=== PATIENT | male | born 1965 | race American Indian/Alaskan Native ===

== ENCOUNTER 2017-01-07 10:23 | Emergency (ER) | payer MEDICAID, OTHER ==
[2017-01-07 14:46] LABS: Basophils % (Auto) 0.7 % (0.0-1.8); Eosinophils % (Auto) 0.8 % (0.0-4.3); Hematocrit 46.7 % (35.5-45.6); Hemoglobin 14.9 gm/dl (11.8-15.2); Mean Corpuscular HGB Conc 32 % (32-34); Mean Corpuscular Hemoglobin 28 pg (28-32); Mean Corpuscular Volume 87 fl (84-94); Platelet Count 125 K/mm3 (140-440); Red Blood Count 5.37 M/mm3 (3.65-5.03); Red Cell Distribution Width 14.1 % (13.2-15.2); White Blood Count 4.5 K/mm3 (4.5-11.0)
[2017-01-07 15:01] LABS: Anion Gap 16 mmol/L; Blood Urea Nitrogen 9 mg/dL (9-20); Calcium 9.1 mg/dL (8.4-10.2); Carbon Dioxide 26 mmol/L (22-30); Chloride 99.5 mmol/L (98-107); Glucose 81 mg/dL (75-100); Potassium 4.7 mmol/L (3.6-5.0); Sodium 137 mmol/L (137-145)
--- NOTE | 2017-01-07 15:13 | Emergency Department Report ---
ED General Adult HPI - General Chief complaint: Dizziness Stated complaint: DIZZINESS Time Seen by Provider: 01/07/17 15:01 Source: patient, RN notes reviewed Mode of arrival: Ambulatory Limitations: No Limitations - History of Present Illness Initial comments: This is a 51-year-old male. I have evaluated him in the past. Past medical history includes basilar artery stenosis, pontine infarct, pulmonary embolus, hemorrhagic pontine stroke, persistent left-sided deficits. The patient presents to the ER complaining of resolved dizziness. The dizziness is described as a sensation of "swirling." It lasted from approximately 8:00 AM. Patient thinks it lasted for around 10 seconds. He denies headache, neck pain, chest pain, abdominal pain, shortness of breath. He denies new extremity weakness, new extremity numbness. He reports compliance with his medications, with the exception of simvastatin, which he ran out of approximately 2 weeks ago. 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 " Patient reports that he was supposed to follow up with an outpatient neurologist, has not done so secondary to financial issues. There is no change in auditory acuity, there is no tinnitus, no recent cold or viral syndrome. -: Sudden Severity scale (0 -10): 0 Consistency: now resolved Improves with: none Worsens with: none Associated Symptoms: denies: confusion, chest pain, cough, diaphoresis, fever/ chills, loss of appetite, malaise, nausea/vomiting, rash, seizure, shortness of breath, syncope, weakness - Related Data Previous Rx's Medication Instructions Recorded Last Taken Type Aspirin [Aspirin TAB] 325 mg PO QDAY #30 tablet 12/04/16 1 Week Ago Rx Lisinopril [Zestril TAB] 40 mg PO QDAY #30 tablet 12/04/16 1 Week Ago Rx Simvastatin [Zocor TAB] 40 mg PO QHS #30 tablet 12/04/16 1 Week Ago Rx amLODIPine [Norvasc] 10 mg PO DAILY #30 tablet 12/04/16 1 Week Ago Rx Aspirin [Aspirin TAB] 325 mg PO ONCE #30 tablet 01/07/17 Unknown Rx Lisinopril [Zestril TAB] 40 mg PO QDAY 30 Days 01/07/17 Unknown Rx Meclizine [Antivert] 12.5 mg PO BID PRN #10 tablet 01/07/17 Unknown Rx Simvastatin [Zocor TAB] 40 mg PO QHS #30 tablet 01/07/17 Unknown Rx amLODIPine [Norvasc] 10 mg PO DAILY #30 tab 01/07/17 Unknown Rx Allergies Allergy/AdvReac Type Severity Reaction Status Date / Time No Known Allergies Allergy Verified 01/05/16 13:51 ED Review of Systems ROS: Stated complaint: DIZZINESS Other details as noted in HPI Constitutional: denies: fever, malaise Eyes: denies: vision change ENT: other (dizzyness). denies: epistaxis Respiratory: denies: cough Cardiovascular: denies: chest pain Gastrointestinal: denies: abdominal pain, nausea, diarrhea Genitourinary: denies: urgency, dysuria Musculoskeletal: denies: back pain, joint swelling, arthralgia Skin: denies: rash Neurological: as per HPI, vertigo. denies: abnormal gait ED Past Medical Hx - Past Medical History Hx Hypertension: Yes Hx CVA: Yes (L side deficits) Hx Congestive Heart Failure: No Hx Diabetes: No Hx Pulmonary Embolism: Yes Hx Liver Disease: No Hx Renal Disease: No Hx Sickle Cell Disease: No Hx Seizures: No Hx Asthma: No Hx COPD: No Hx Dementia: No Hx HIV: No - Surgical History Additional Surgical History: Peg tube placement - Social History Smoking Status: Never Smoker Substance Use Type: None - Medications Home Medications: Home Medications Medication Instructions Recorded Confirmed Last Taken Type Aspirin [Aspirin TAB] 325 mg PO QDAY #30 tablet 12/04/16 01/07/17 1 Week Ago Rx Lisinopril [Zestril TAB] 40 mg PO QDAY #30 tablet 12/04/16 01/07/17 1 Week Ago Rx Simvastatin [Zocor TAB] 40 mg PO QHS #30 tablet 12/04/16 01/07/17 1 Week Ago Rx amLODIPine [Norvasc] 10 mg PO DAILY #30 tablet 12/04/16 01/07/17 1 Week Ago Rx Aspirin [Aspirin TAB] 325 mg PO ONCE #30 tablet 01/07/17 Unknown Rx Lisinopril [Zestril TAB] 40 mg PO QDAY 30 Days 01/07/17 Unknown Rx Meclizine [Antivert] 12.5 mg PO BID PRN #10 tablet 01/07/17 Unknown Rx Simvastatin [Zocor TAB] 40 mg PO QHS #30 tablet 01/07/17 Unknown Rx amLODIPine [Norvasc] 10 mg PO DAILY #30 tab 01/07/17 Unknown Rx ED Physical Exam - General Limitations: No Limitations General appearance: alert, in no apparent distress - Head Head exam: Present: atraumatic, normocephalic - Eye Eye exam: Present: normal appearance, EOMI. Absent: nystagmus - ENT ENT exam: Present: normal exam, normal orophraynx, mucous membranes moist, normal external ear exam - Neck Neck exam: Present: normal inspection, full ROM. Absent: tenderness, meningismus - Respiratory Respiratory exam: Present: normal lung sounds bilaterally. Absent: respiratory distress, wheezes, rales, rhonchi, stridor, chest wall tenderness - Cardiovascular Cardiovascular Exam: Present: regular rate, normal rhythm, normal heart sounds. Absent: bradycardia, tachycardia, irregular rhythm, systolic murmur, diastolic murmur, rubs, gallop - GI/Abdominal GI/Abdominal exam: Present: soft, normal bowel sounds. Absent: distended, tenderness, guarding, rebound, rigid, pulsatile mass - Rectal Rectal exam: Present: deferred - Extremities Exam Extremities exam: Present: normal inspection, full ROM, normal capillary refill. Absent: tenderness, pedal edema, joint swelling, calf tenderness - Back Exam Back exam: Present: normal inspection, full ROM. Absent: tenderness, CVA tenderness (R), CVA tenderness (L), muscle spasm, paraspinal tenderness, vertebral tenderness - Neurological Exam Neurological exam: Present: alert, oriented X3, normal gait (negative Romberg. Normal [id number]. Negative pass pointing right upper extremity), other ( there is no facial droop. The tongue is midline. Extraocular movements are intact bilaterally. Facial sensation intact to light touch in the bilateral V1 , V2, V3 distribution. There is 4/5 strength left upper extremity. Sensation intact to light touch and pinprick in the upper and lower extremities. Patient reports that left upper extremity findings are chronic.) - Psychiatric Psychiatric exam: Present: normal affect, normal mood - Skin Skin exam: Present: warm, dry, intact, normal color. Absent: rash ED Course Vital Signs 01/07/17 01/07/17 01/07/17 10:32 13:12 15:14 Temperature 98.1 F 97.9 F Pulse Rate 67 61 60 Respiratory 16 18 16 Rate Blood Pressure 143/95 Blood Pressure 116/74 134/84 [Left] O2 Sat by Pulse 100 100 98 Oximetry 01/07/17 01/07/17 17:10 18:57 Temperature 97.9 F Pulse Rate 57 L 75 Respiratory 14 14 Rate Blood Pressure Blood Pressure 141/87 149/77 [Left] O2 Sat by Pulse 100 98 Oximetry - Reevaluation(s) Reevaluation #1: 01/07/17 16:02 differential diagnosis: Peripheral vertigo, transient ischemic attack, posterior circulation deficit, subacute stroke Assessment and plan: 51-year-old male with complex neuroanatomy, known history of stroke, not a TPA candidate given history of hemorrhagic stroke, with nonspecific dizziness. He is walking with a steady gait, his neurologic examination is unremarkable, there is no tinnitus, there is no change in auditory acuity. Patient is noncompliant with his simvastatin, but is taking his aspirin and antihypertensive medications. A noncontrast CT scan of the brain is negative for acute disease. . 01/07/17 18:31 Reevaluation #2: 01/07/17 18:31 case d/w Dr Miramontes, who accepts patient to his service ED Medical Decision Making - Lab Data Result diagrams: 01/07/17 14:25 01/07/17 14:25 Vital Signs 01/07/17 01/07/17 01/07/17 10:32 13:12 15:14 Temperature 98.1 F 97.9 F Pulse Rate 67 61 60 Respiratory 16 18 16 Rate Blood Pressure 143/95 Blood Pressure 116/74 134/84 [Left] O2 Sat by Pulse 100 100 98 Oximetry Lab Results 01/07/17 01/07/17 Range/Units 14:25 14:25 WBC 4.5 (4.5-11.0) K/mm3 RBC 5.37 H (3.65-5.03) M/mm3 Hgb 14.9 (11.8-15.2) gm/dl Hct 46.7 H (35.5-45.6) % MCV 87 (84-94) fl MCH 28 (28-32) pg MCHC 32 (32-34) % RDW 14.1 (13.2-15.2) % Plt Count 125 L (140-440) K/mm3 Lymph % (Auto) 27.4 (13.4-35.0) % [place] % (Auto) 10.5 H (0.0-7.3) % Eos % (Auto) 0.8 (0.0-4.3) % Baso % (Auto) 0.7 (0.0-1.8) % Lymph # 1.2 (1.2-5.4) K/mm3 [place] # 0.5 (0.0-0.8) K/mm3 Eos # 0.0 (0.0-0.4) K/mm3 Baso # 0.0 (0.0-0.1) K/mm3 Seg Neutrophils % 60.6 (40.0-70.0) % Seg Neutrophils # 2.7 (1.8-7.7) K/mm3 Sodium 137 (137-145) mmol/L Potassium 4.7 (3.6-5.0) mmol/L Chloride 99.5 (98-107) mmol/L Carbon Dioxide 26 (22-30) mmol/L Anion Gap 16 mmol/L BUN 9 (9-20) mg/dL Creatinine 1.0 (0.8-1.5) mg/dL Estimated GFR > 60 ml/min BUN/Creatinine Ratio 9.00 % Glucose 81 (75-100) mg/dL Calcium 9.1 (8.4-10.2) mg/dL Troponin T < 0.010 (0.00-0.029) ng/mL - EKG Data 01/07/17 16:04 sinus bradycardia, 59 bpm, QTC 433 ms, not morphologically consistent with STEMI. - Radiology Data Radiology results: report reviewed, image reviewed Noncontrast CT scan is negative for acute findings, multiple chronic findings are noted. Critical care attestation.: If time is entered above; I have spent that time in minutes in the direct care of this critically ill patient, excluding procedure time. ED Disposition Clinical Impression: Dizziness Disposition: OP ADMITTED IP TO THIS HOSP Is pt being admited?: Yes Does the pt Need Aspirin: Yes Condition: Good Instructions: Vertigo (ED) Prescriptions: Simvastatin [Zocor TAB] 40 mg PO QHS #30 tablet amLODIPine [Norvasc] 10 mg PO DAILY #30 tab Aspirin [Aspirin TAB] 325 mg PO ONCE #30 tablet Lisinopril [Zestril TAB] 40 mg PO QDAY 30 Days Meclizine [Antivert] 12.5 mg PO BID PRN #10 tablet PRN Reason: Vertigo Referrals: PRIMARY CARE, [Primary Care Provider] - 3-5 Days
--- NOTE | 2017-01-07 15:55 | Cat Scan Report ---
CT HEAD WITHOUT CONTRAST INDICATION: Resolved dizziness. COMPARISON: 07/24/2016. FINDINGS: Noncontrast head CT again demonstrates normal ventricles and sulci. Slight periventricular hypodensities. No definite acute infarct, hemorrhage, mass effect or midline shift. Stable 1.2 cm high right parietal old ischemic hypodensity, axial series 2, image 45. An elongated, 1.3 x 0.5 cm old infarct in the irma on the left and another similar slightly more inferior approximately 1.1 x 0.5 cm focus on the right again noted, axial images 14-16. Approximately 1 x 0.4 cm old left cerebellar infarct also again seen, axial image 19. Otherwise unremarkable posterior fossa with preserved basilar cisterns. Clear imaged paranasal sinuses and mastoid air cells. Normal calvarium and scalp. Few missing teeth and small radiopaque dental filling. CONCLUSION: No acute intracranial CT abnormality with few stable chronic infarcts noted, as described. Thank you for the opportunity to participate in this patient's care.
--- NOTE | 2017-01-07 17:47 | Event Note ---
Date: 01/07/17 See H/p in reports C/o dizziness Now better Able to walk normally . No ataxia Vertigo d/c on Mexclizine 12.5 mg po q12 prn ASA 81 mg po 2 qd
[2017-01-07] MEDS ORDERED: BABY ASPIRIN PO ONE (18:31)
[2017-01-07 18:57] VITALS: BP 149/77
== END 2017-01-07 18:56 | disposition admitted as inpatient to this hospital (09) ==
LOC: ED 10:23
DX: R42 Dizziness and giddiness (principal); I10 Essential (primary) hypertension; I63.9 Cerebral infarction, unspecified; Z79.82 Long term (current) use of aspirin; Z86.711 Personal history of pulmonary embolism
CPT/HCPCS: 36415; 70450; 80048; 84484; 85025; 93005; 93010

== ENCOUNTER 2017-02-02 11:00 | Emergency (ER) | payer OTHER ==
[2017-02-02] MEDS ORDERED: ZOCOR ONE (14:46)
[2017-02-02] MEDS ORDERED: ANTIVERT ONE (14:46)
[2017-02-02] MEDS ORDERED: NORVASC ONE (14:47)
[2017-02-02] MEDS ORDERED: ZESTRIL ONE (14:48)
[2017-02-02] MEDS ORDERED: ASPIRIN ONE (14:48)
[2017-02-02] MEDS ORDERED: ANTIVERT PO ONE (14:51)
[2017-02-02] MEDS ORDERED: NORVASC PO ONE (14:51)
[2017-02-02] MEDS ORDERED: ZOCOR PO ONE (14:51)
[2017-02-02] MEDS ORDERED: ASPIRIN PO ONE (14:51)
[2017-02-02] MEDS ORDERED: ZESTRIL PO ONE (14:51)
[2017-02-02 15:04] VITALS: BP 152/100
--- NOTE | 2017-02-02 15:07 | Emergency Department Report ---
ED Medical Clearance HPI - General Chief complaint: Medical Clearance Stated complaint: DIZZINESS Source: patient Mode of arrival: Ambulatory - History of Present Illness Initial comments: 51 year old male presents to ED for medication refill. Patient states he was seen in ED and admitted to hospital last month but has lost his prescriptions since his prior hospital visit. patient denies chest pain, sob, dizziness or pain on exam and states he just needs his prescriptions re-printed so that he may fill them today. Patient will be given one dose of all his medications today during ED visit and begin taking RX meds at home tomorrow. patient is stable, neurologically intact and in no acute distress. -: unknown Reason for Medical Clearance: other (med refill) Alledged Intoxication: No Compliant with Home Medications: No (lost prescriptions) Traumatic Symptoms: denies traumatic injury Associated Symptoms: denies other symptoms Treatments Prior to Arrival: none Home medications: Previous Rx's Medication Instructions Recorded Last Taken Type Aspirin [Aspirin TAB] 325 mg PO QDAY #30 tablet 12/04/16 1 Week Ago Rx Lisinopril [Zestril TAB] 40 mg PO QDAY #30 tablet 12/04/16 1 Week Ago Rx Simvastatin [Zocor TAB] 40 mg PO QHS #30 tablet 12/04/16 1 Week Ago Rx amLODIPine [Norvasc] 10 mg PO DAILY #30 tablet 12/04/16 1 Week Ago Rx Aspirin [Aspirin TAB] 325 mg PO ONCE #30 tablet 02/02/17 Unknown Rx Lisinopril [Zestril TAB] 40 mg PO QDAY 30 Days 02/02/17 Unknown Rx Meclizine [Antivert] 12.5 mg PO BID PRN #10 tablet 02/02/17 Unknown Rx Simvastatin [Zocor TAB] 40 mg PO QHS #30 tablet 02/02/17 Unknown Rx amLODIPine [Norvasc] 10 mg PO DAILY #30 tab 02/02/17 Unknown Rx Allergies/Adverse reactions: Allergies Allergy/AdvReac Type Severity Reaction Status Date / Time No Known Allergies Allergy Verified 01/05/16 13:51 ED Review of Systems ROS: Stated complaint: DIZZINESS Other details as noted in HPI Constitutional: denies: chills, fever Eyes: denies: eye pain, eye discharge, vision change ENT: denies: ear pain, throat pain Respiratory: denies: cough, shortness of breath, wheezing Cardiovascular: denies: chest pain, palpitations Endocrine: no symptoms reported Gastrointestinal: denies: abdominal pain, nausea, diarrhea Genitourinary: denies: urgency, dysuria Musculoskeletal: denies: back pain, joint swelling, arthralgia Skin: denies: rash, lesions Neurological: denies: headache, weakness, paresthesias Psychiatric: denies: anxiety, depression Hematological/Lymphatic: denies: easy bleeding, easy bruising ED Past Medical Hx - Past Medical History Previous Medical History?: Yes Hx Hypertension: Yes Hx CVA: Yes (L side deficits) Hx Congestive Heart Failure: No Hx Diabetes: No Hx Pulmonary Embolism: Yes Hx Liver Disease: No Hx Renal Disease: No Hx Sickle Cell Disease: No Hx Seizures: No Hx Asthma: No Hx COPD: No Hx Dementia: No Hx HIV: No - Surgical History Additional Surgical History: Peg tube placement - Social History Smoking Status: Never Smoker Substance Use Type: Prescribed - Medications Home Medications: Home Medications Medication Instructions Recorded Confirmed Last Taken Type Aspirin [Aspirin TAB] 325 mg PO QDAY #30 tablet 12/04/16 01/07/17 1 Week Ago Rx Lisinopril [Zestril TAB] 40 mg PO QDAY #30 tablet 12/04/16 01/07/17 1 Week Ago Rx Simvastatin [Zocor TAB] 40 mg PO QHS #30 tablet 12/04/16 01/07/17 1 Week Ago Rx amLODIPine [Norvasc] 10 mg PO DAILY #30 tablet 12/04/16 01/07/17 1 Week Ago Rx Aspirin [Aspirin TAB] 325 mg PO ONCE #30 tablet 02/02/17 Unknown Rx Lisinopril [Zestril TAB] 40 mg PO QDAY 30 Days 02/02/17 Unknown Rx Meclizine [Antivert] 12.5 mg PO BID PRN #10 tablet 02/02/17 Unknown Rx Simvastatin [Zocor TAB] 40 mg PO QHS #30 tablet 02/02/17 Unknown Rx amLODIPine [Norvasc] 10 mg PO DAILY #30 tab 02/02/17 Unknown Rx ED Physical Exam - General Limitations: No Limitations General appearance: alert, in no apparent distress - Head Head exam: Present: atraumatic, normocephalic - Eye Eye exam: Present: normal appearance - ENT ENT exam: Present: normal exam, mucous membranes moist - Neck Neck exam: Present: normal inspection - Respiratory Respiratory exam: Present: normal lung sounds bilaterally. Absent: respiratory distress - Cardiovascular Cardiovascular Exam: Present: regular rate, normal rhythm. Absent: systolic murmur, diastolic murmur, rubs, gallop - GI/Abdominal GI/Abdominal exam: Present: soft, normal bowel sounds. Absent: tenderness - Rectal Rectal exam: Present: deferred - Extremities Exam Extremities exam: Present: normal inspection - Back Exam Back exam: Present: normal inspection - Neurological Exam Neurological exam: Present: alert, oriented X3, normal gait - Psychiatric Psychiatric exam: Present: normal affect, normal mood - Skin Skin exam: Present: warm, dry, intact, normal color. Absent: rash ED Course Vital Signs 02/02/17 11:59 Temperature 98.4 F Pulse Rate 58 L Respiratory 20 Rate Blood Pressure 154/101 O2 Sat by Pulse 99 Oximetry ED Medical Decision Making - Medical Decision Making 51 year old male presents to ED for medication refill. Patient stable, neurologically intact and in no acute distress. ED Disposition Clinical Impression: Medication refill Disposition: DISCHARGED TO HOME OR SELFCARE Is pt being admited?: No Does the pt Need Aspirin: No Condition: Stable Additional Instructions: Please continue medication as previously prescribed Prescriptions: Simvastatin [Zocor TAB] 40 mg PO QHS #30 tablet amLODIPine [Norvasc] 10 mg PO DAILY #30 tab Aspirin [Aspirin TAB] 325 mg PO ONCE #30 tablet Lisinopril [Zestril TAB] 40 mg PO QDAY 30 Days Meclizine [Antivert] 12.5 mg PO BID PRN #10 tablet PRN Reason: Vertigo Referrals: CAMILA BRAVO MD, PHD [Primary Care Provider] - 3-5 Days
== END 2017-02-02 15:21 | disposition home or self-care (01) ==
LOC: ED 11:00
DX: Z76.0 Encounter for issue of repeat prescription (principal); I10 Essential (primary) hypertension; Z86.73 Personal history of transient ischemic attack (TIA), and cerebral infarction without residual deficits; Z86.711 Personal history of pulmonary embolism
CPT/HCPCS: 99282

== ENCOUNTER 2017-08-11 15:15 | Emergency (ER) | payer MEDICARE ==
--- NOTE | 2017-08-11 18:48 | Emergency Department Report ---
ED Recheck HPI - General Chief Complaint: Medical Clearance Stated Complaint: MEDICATION REFILL Time Seen by Provider: 08/11/17 18:32 Source: patient Mode of arrival: Ambulatory Limitations: No Limitations - History of Present Illness Initial Comments: 51-year-old male has medical history hypertension presents for refill and request for refill on medicines. Denies chest pain palpitations shortness of breath nausea vomiting abdominal pain dizziness headache or lower extremity paresthesias. Patient is awake alert and oriented 3 pleasant conversant and does not appear to be in acute distress and ambulatory without assistance. States he needs a referral to her primary care doctor as well. Has been out of his medicines for 2 days. MD Complaint: medication refill request Returns Today for: request for prescription - Related Data Previous Rx's Medication Instructions Recorded Last Taken Type Aspirin [Aspirin TAB] 325 mg PO ONCE #30 tablet 02/02/17 Unknown Rx Lisinopril [Zestril TAB] 40 mg PO QDAY 30 Days tablet 02/02/17 Unknown Rx Meclizine [Antivert] 12.5 mg PO BID PRN #10 tablet 02/02/17 Unknown Rx Simvastatin [Zocor TAB] 40 mg PO QHS #30 tablet 02/02/17 Unknown Rx amLODIPine [Norvasc] 10 mg PO DAILY #30 tab 02/02/17 Unknown Rx Aspirin EC [Aspirin Enteric Coated 81 mg PO QDAY #30 tablet. 08/11/17 Unknown Rx TAB] Lisinopril [Zestril] 20 mg PO QDAY #30 tablet 08/11/17 Unknown Rx Simvastatin 40 mg PO QHS #30 tablet 08/11/17 Unknown Rx amLODIPine [Norvasc] 10 mg PO DAILY #30 tab 08/11/17 Unknown Rx Allergies Allergy/AdvReac Type Severity Reaction Status Date / Time No Known Allergies Allergy Verified 01/05/16 13:51 ED Review of Systems ROS: Stated complaint: MEDICATION REFILL Other details as noted in HPI Constitutional: denies: chills, fever Eyes: denies: eye pain, eye discharge, vision change ENT: denies: ear pain, throat pain Respiratory: denies: cough, shortness of breath, wheezing Cardiovascular: denies: chest pain, palpitations Endocrine: no symptoms reported Gastrointestinal: denies: abdominal pain, nausea, diarrhea Genitourinary: denies: urgency, dysuria Musculoskeletal: denies: back pain, joint swelling, arthralgia Skin: denies: rash, lesions Neurological: denies: headache, weakness, paresthesias Psychiatric: denies: anxiety, depression Hematological/Lymphatic: denies: easy bleeding, easy bruising ED Past Medical Hx - Past Medical History Hx Hypertension: Yes Hx CVA: Yes (L side deficits) Hx Congestive Heart Failure: No Hx Diabetes: No Hx Pulmonary Embolism: Yes Hx Liver Disease: No Hx Renal Disease: No Hx Sickle Cell Disease: No Hx Seizures: No Hx Asthma: No Hx COPD: No Hx Dementia: No Hx HIV: No - Surgical History Additional Surgical History: Peg tube placement - Social History Smoking Status: Unknown if ever smoked Substance Use Type: None - Medications Home Medications: Home Medications Medication Instructions Recorded Confirmed Last Taken Type Aspirin [Aspirin TAB] 325 mg PO ONCE #30 tablet 02/02/17 08/11/17 Unknown Rx Lisinopril [Zestril TAB] 40 mg PO QDAY 30 Days tablet 02/02/17 08/11/17 Unknown Rx Meclizine [Antivert] 12.5 mg PO BID PRN #10 tablet 02/02/17 08/11/17 Unknown Rx Simvastatin [Zocor TAB] 40 mg PO QHS #30 tablet 02/02/17 08/11/17 Unknown Rx amLODIPine [Norvasc] 10 mg PO DAILY #30 tab 02/02/17 08/11/17 Unknown Rx Aspirin EC [Aspirin Enteric Coated 81 mg PO QDAY #30 tablet.dr 08/11/17 Unknown Rx TAB] Lisinopril [Zestril] 20 mg PO QDAY #30 tablet 08/11/17 Unknown Rx Simvastatin 40 mg PO QHS #30 tablet 08/11/17 Unknown Rx amLODIPine [Norvasc] 10 mg PO DAILY #30 tab 08/11/17 Unknown Rx ED Physical Exam - General Limitations: No Limitations General appearance: alert, in no apparent distress - Head Head exam: Present: atraumatic, normocephalic - Eye Eye exam: Present: normal appearance, PERRL - ENT ENT exam: Present: mucous membranes moist - Neck Neck exam: Present: normal inspection - Respiratory Respiratory exam: Present: normal lung sounds bilaterally. Absent: respiratory distress - Cardiovascular Cardiovascular Exam: Present: regular rate, normal rhythm. Absent: systolic murmur, diastolic murmur, rubs, gallop - GI/Abdominal GI/Abdominal exam: Present: soft, normal bowel sounds - Rectal Rectal exam: Present: deferred - Extremities Exam Extremities exam: Present: normal inspection - Back Exam Back exam: Present: normal inspection - Neurological Exam Neurological exam: Present: alert, oriented X3 - Psychiatric Psychiatric exam: Present: normal affect, normal mood - Skin Skin exam: Present: warm, dry, intact, normal color. Absent: rash ED Course Vital Signs 08/11/17 08/11/17 15:26 19:00 Temperature 98 F 98.5 F Pulse Rate 63 60 Respiratory 18 17 Rate Blood Pressure 119/85 Blood Pressure 132/82 [Left] O2 Sat by Pulse 100 100 Oximetry ED Recheck MDM - Differential Diagnosis Prescription Refill(s) - Medical Decision Making A/P: Refill for chronic medicines 1-I represcribed patient's medicines for 1 month course and referred him to primary care. Patient is currently asymptomatic on clinical examination is Critical care attestation.: If time is entered above; I have spent that time in minutes in the direct care of this critically ill patient, excluding procedure time. ED Disposition Clinical Impression: Encounter for medication refill Disposition: DC- TO HOME OR SELFCARE Is pt being admited?: No Does the pt Need Aspirin: No Condition: Stable Prescriptions: Simvastatin 40 mg PO QHS #30 tablet amLODIPine [Norvasc] 10 mg PO DAILY #30 tab Aspirin EC [Aspirin Enteric Coated TAB] 81 mg PO QDAY #30 tablet. Lisinopril [Zestril] 20 mg PO QDAY #30 tablet Referrals: JOSE ADAMS JR, MD [Staff Physician] - 3-[address] [facility] [place] [Outside] - 3-5 Days [facility] [Outside] - 3-5 Days KEESHA ROME MD [Staff Physician] - 3-5 Days Time of Disposition: 18:44
[2017-08-11 19:00] VITALS: BP 132/82
== END 2017-08-11 19:00 | disposition home or self-care (01) ==
LOC: ED 15:15
DX: Z76.0 Encounter for issue of repeat prescription (principal); I10 Essential (primary) hypertension; I63.9 Cerebral infarction, unspecified; I26.99 Other pulmonary embolism without acute cor pulmonale; Z79.82 Long term (current) use of aspirin
CPT/HCPCS: 99282

== ENCOUNTER 2017-09-10 08:25 | Emergency (ER) | payer MEDICARE ==
[2017-09-10 08:36] VITALS: BP 138/81
--- NOTE | 2017-09-10 09:04 | Emergency Department Report ---
ED General Adult HPI - General Chief complaint: Medical Clearance Stated complaint: MEDICATION REFILL Time Seen by Provider: 09/10/17 08:46 Source: patient Mode of arrival: Ambulatory Limitations: No Limitations - History of Present Illness Initial comments: 51-year-old male with history of stroke presents to the ED requesting medication refill. He denies any symptoms at this time. Denies headache, chest pain, shortness of breath, abdominal pain. States that he needs refill on aspirin, lisinopril, meclizine, simvastatin. -: Gradual - Related Data Previous Rx's Medication Instructions Recorded Last Taken Type Aspirin [Aspirin TAB] 325 mg PO ONCE #30 tablet 02/02/17 Unknown Rx Simvastatin [Zocor TAB] 40 mg PO QHS #30 tablet 02/02/17 Unknown Rx amLODIPine [Norvasc] 10 mg PO DAILY #30 tab 02/02/17 Unknown Rx Lisinopril [Zestril] 20 mg PO QDAY #30 tablet 08/11/17 Unknown Rx amLODIPine [Norvasc] 10 mg PO DAILY #30 tab 08/11/17 Unknown Rx Aspirin EC [Aspirin Enteric Coated 81 mg PO QDAY #60 tablet. 09/10/17 Unknown Rx TAB] Lisinopril [Zestril TAB] 40 mg PO QDAY 60 Days tablet 09/10/17 Unknown Rx Meclizine [Antivert] 12.5 mg PO BID PRN #60 tablet 09/10/17 Unknown Rx Simvastatin 40 mg PO QHS #60 tablet 09/10/17 Unknown Rx Allergies Allergy/AdvReac Type Severity Reaction Status Date / Time No Known Allergies Allergy Verified 01/05/16 13:51 ED Review of Systems ROS: Stated complaint: MEDICATION REFILL Other details as noted in HPI Constitutional: denies: chills, fever Eyes: denies: eye pain, eye discharge, vision change ENT: denies: ear pain, throat pain Respiratory: denies: cough, shortness of breath, wheezing Cardiovascular: denies: chest pain, palpitations Endocrine: no symptoms reported Gastrointestinal: denies: abdominal pain, nausea, diarrhea Genitourinary: denies: urgency, dysuria Musculoskeletal: denies: back pain, joint swelling, arthralgia Skin: denies: rash, lesions Neurological: denies: headache, weakness, paresthesias Psychiatric: denies: anxiety, depression Hematological/Lymphatic: denies: easy bleeding, easy bruising ED Past Medical Hx - Past Medical History Previous Medical History?: Yes Hx Hypertension: Yes Hx CVA: Yes (L side deficits) Hx Congestive Heart Failure: No Hx Diabetes: No Hx Pulmonary Embolism: Yes Hx Liver Disease: No Hx Renal Disease: No Hx Sickle Cell Disease: No Hx Seizures: No Hx Asthma: No Hx COPD: No Hx Dementia: No Hx HIV: No - Surgical History Past Surgical History?: Yes Additional Surgical History: Peg tube placement - Social History Smoking Status: Never Smoker Substance Use Type: Prescribed - Medications Home Medications: Home Medications Medication Instructions Recorded Confirmed Last Taken Type Aspirin [Aspirin TAB] 325 mg PO ONCE #30 tablet 02/02/17 08/11/17 Unknown Rx Simvastatin [Zocor TAB] 40 mg PO QHS #30 tablet 02/02/17 08/11/17 Unknown Rx amLODIPine [Norvasc] 10 mg PO DAILY #30 tab 02/02/17 08/11/17 Unknown Rx Lisinopril [Zestril] 20 mg PO QDAY #30 tablet 08/11/17 Unknown Rx amLODIPine [Norvasc] 10 mg PO DAILY #30 tab 08/11/17 Unknown Rx Aspirin EC [Aspirin Enteric Coated 81 mg PO QDAY #60 tablet.dr 09/10/17 Unknown Rx TAB] Lisinopril [Zestril TAB] 40 mg PO QDAY 60 Days tablet 09/10/17 Unknown Rx Meclizine [Antivert] 12.5 mg PO BID PRN #60 tablet 09/10/17 Unknown Rx Simvastatin 40 mg PO QHS #60 tablet 09/10/17 Unknown Rx ED Physical Exam - General Limitations: No Limitations General appearance: alert, in no apparent distress - Head Head exam: Present: atraumatic, normocephalic - Eye Eye exam: Present: normal appearance - ENT ENT exam: Present: mucous membranes moist - Neck Neck exam: Present: normal inspection - Respiratory Respiratory exam: Present: normal lung sounds bilaterally. Absent: respiratory distress - Cardiovascular Cardiovascular Exam: Present: regular rate, normal rhythm. Absent: systolic murmur, diastolic murmur, rubs, gallop - GI/Abdominal GI/Abdominal exam: Present: soft, normal bowel sounds - Rectal Rectal exam: Present: deferred - Extremities Exam Extremities exam: Present: normal inspection - Back Exam Back exam: Present: normal inspection - Neurological Exam Neurological exam: Present: alert, oriented X3 - Psychiatric Psychiatric exam: Present: normal affect, normal mood - Skin Skin exam: Present: warm, dry, intact, normal color. Absent: rash ED Course Vital Signs 09/10/17 08:32 Temperature 98.4 F Pulse Rate 61 Respiratory 20 Rate Blood Pressure 138/81 O2 Sat by Pulse 99 Oximetry ED Medical Decision Making - Medical Decision Making Patient is resting comfortably at this time. No acute distress. No symptoms Critical care attestation.: If time is entered above; I have spent that time in minutes in the direct care of this critically ill patient, excluding procedure time. ED Disposition Clinical Impression: Medication refill Disposition: - TO HOME OR SELFCARE Is pt being admited?: No Does the pt Need Aspirin: No Condition: Good Prescriptions: Simvastatin 40 mg PO QHS #60 tablet Aspirin EC [Aspirin Enteric Coated TAB] 81 mg PO QDAY #60 tablet. Lisinopril [Zestril TAB] 40 mg PO QDAY 60 Days tablet Meclizine [Antivert] 12.5 mg PO BID PRN #60 tablet PRN Reason: Vertigo Referrals: GARCIA FERRARI MD [Primary Care Provider] - 3-5 Days Forms: Work/School Release Form(ED) Time of Disposition: 09:04
== END 2017-09-10 09:10 | disposition home or self-care (01) ==
LOC: ED 08:25
DX: Z76.0 Encounter for issue of repeat prescription (principal); Z79.82 Long term (current) use of aspirin; I10 Essential (primary) hypertension; Z86.73 Personal history of transient ischemic attack (TIA), and cerebral infarction without residual deficits; I26.99 Other pulmonary embolism without acute cor pulmonale
CPT/HCPCS: 99282

== ENCOUNTER 2018-04-11 13:16 | Emergency (ER) | payer MEDICARE ==
[2018-04-11] MEDS ORDERED: ALUM-MAG HYDROX-SIMETH 200-200-20MG/5ML PO ONE (15:55)
[2018-04-11] MEDS ORDERED: LIDOCAINE VISCOUS 2% PO ONE (15:55)
[2018-04-11] MEDS ORDERED: ZOFRAN IV ONE (15:56)
[2018-04-11] MEDS ORDERED: NACL 0.9% 1000 ML 1,000 ML IV ONE (15:56)
--- NOTE | 2018-04-11 16:03 | Emergency Department Report ---
ED Syncope HPI - General Chief Complaint: Syncope Stated Complaint: NAUSEA AND VOMIT Time Seen by Provider: 04/11/18 15:33 Source: patient - History of Present Illness Initial Comments: Mr Stevenson is a 52 year-old man with extensive PMH who presents after near- syncopal episode. was walking outside this morning, was nauseated and threw up. he then felt light headed and had to lay down. Did not lose consciousness, did not hit his head. Now just feels a little tired. Episode was not associated with chest pain, shortness of breath, weakness/tingling. Has been out of his meds for 1 month and wants them refilled as well. No more vomiting. occurred about 1045am. No other complaints. Precipitating Factors: Positive: lightheadedness Context: activity Loss of Consciousness: no loss of consciousness Current Symptoms: back to normal. denies: blurred vision, chest pain, diaphoresis, dizziness, headache, injury, lightheadedness, nausea - Related Data Allergies/Adverse Reactions: Allergies No Known Allergies Allergy (Verified 01/05/16 13:51) Home Medications: Ambulatory Orders Aspirin [Aspirin TAB] 325 mg PO ONCE #30 tablet 02/02/17 Simvastatin [Zocor TAB] 40 mg PO QHS #30 tablet 02/02/17 amLODIPine [Norvasc] 10 mg PO DAILY #30 tab 02/02/17 Lisinopril [Zestril] 20 mg PO QDAY #30 tablet 08/11/17 amLODIPine [Norvasc] 10 mg PO DAILY #30 tab 08/11/17 Aspirin EC [Aspirin Enteric Coated TAB] 81 mg PO QDAY #60 tablet. 09/10/17 Lisinopril [Zestril TAB] 40 mg PO QDAY 60 Days tablet 09/10/17 Meclizine [Antivert] 12.5 mg PO BID PRN #60 tablet 09/10/17 Simvastatin 40 mg PO QHS #60 tablet 09/10/17 ED Review of Systems ROS: Stated complaint: NAUSEA AND VOMIT Other details as noted in HPI Comment: All other systems reviewed and negative ED Past Medical Hx - Past Medical History Previous Medical History?: Yes Hx Hypertension: Yes Hx CVA: Yes (L side deficits) Hx Congestive Heart Failure: No Hx Diabetes: No Hx Pulmonary Embolism: Yes Hx Liver Disease: No Hx Renal Disease: No Hx Sickle Cell Disease: No Hx Seizures: No Hx Asthma: No Hx COPD: No Hx Dementia: No Hx HIV: No - Surgical History Past Surgical History?: Yes Additional Surgical History: Peg tube placement - Social History Smoking Status: Never Smoker Substance Use Type: None - Medications Home Medications: Home Medications Medication Instructions Recorded Confirmed Last Taken Type Aspirin [Aspirin TAB] 325 mg PO ONCE #30 tablet 02/02/17 08/11/17 Unknown Rx Simvastatin [Zocor TAB] 40 mg PO QHS #30 tablet 02/02/17 08/11/17 Unknown Rx amLODIPine [Norvasc] 10 mg PO DAILY #30 tab 02/02/17 08/11/17 Unknown Rx Lisinopril [Zestril] 20 mg PO QDAY #30 tablet 08/11/17 Unknown Rx amLODIPine [Norvasc] 10 mg PO DAILY #30 tab 08/11/17 Unknown Rx Aspirin EC [Aspirin Enteric Coated 81 mg PO QDAY #60 tablet.dr 09/10/17 Unknown Rx TAB] Lisinopril [Zestril TAB] 40 mg PO QDAY 60 Days tablet 09/10/17 Unknown Rx Meclizine [Antivert] 12.5 mg PO BID PRN #60 tablet 09/10/17 Unknown Rx Simvastatin 40 mg PO QHS #60 tablet 09/10/17 Unknown Rx ED Physical Exam - General Limitations: No Limitations General appearance: alert, in no apparent distress - Head Head exam: Present: atraumatic, normocephalic - Eye Eye exam: Present: normal appearance, EOMI - ENT ENT exam: Present: normal exam, mucous membranes moist - Neck Neck exam: Present: normal inspection. Absent: tenderness - Respiratory Respiratory exam: Present: normal lung sounds bilaterally. Absent: respiratory distress, wheezes, rales - Cardiovascular Cardiovascular Exam: Present: regular rate, normal rhythm. Absent: systolic murmur, diastolic murmur, rubs, gallop - GI/Abdominal GI/Abdominal exam: Present: soft. Absent: distended, tenderness, guarding, rebound - Rectal Rectal exam: Present: deferred - Extremities Exam Extremities exam: Present: normal inspection. Absent: tenderness, pedal edema, joint swelling, calf tenderness - Back Exam Back exam: Present: normal inspection. Absent: tenderness, CVA tenderness (R), CVA tenderness (L) - Neurological Exam Neurological exam: Present: alert, oriented X3 - Psychiatric Psychiatric exam: Present: normal affect, normal mood - Skin Skin exam: Present: warm, dry, intact, normal color. Absent: rash ED Course Vital Signs 04/11/18 13:20 Temperature 97.8 F Pulse Rate 73 Respiratory 18 Rate Blood Pressure 132/81 O2 Sat by Pulse 97 Oximetry ED Medical Decision Making - Lab Data Result diagrams: 04/11/18 15:59 04/11/18 15:59 Lab Results 04/11/18 04/11/18 Range/Units 15:59 15:59 WBC 7.5 (4.5-11.0) K/mm3 RBC 5.38 H (3.65-5.03) M/mm3 Hgb 15.4 H (11.8-15.2) gm/dl Hct 46.9 H (35.5-45.6) % MCV 87 (84-94) fl MCH 29 (28-32) pg MCHC 33 (32-34) % RDW 14.9 (13.2-15.2) % Plt Count 148 (140-440) K/mm3 Lymph % (Auto) 10.2 L (13.4-35.0) % [place] % (Auto) 7.7 H (0.0-7.3) % Eos % (Auto) 0.2 (0.0-4.3) % Baso % (Auto) 0.2 (0.0-1.8) % Lymph # 0.8 L (1.2-5.4) K/mm3 [place] # 0.6 (0.0-0.8) K/mm3 Eos # 0.0 (0.0-0.4) K/mm3 Baso # 0.0 (0.0-0.1) K/mm3 Seg Neutrophils % 81.7 H (40.0-70.0) % Seg Neutrophils # 6.2 (1.8-7.7) K/mm3 Sodium 137 (137-145) mmol/L Potassium 3.9 (3.6-5.0) mmol/L Chloride 100.4 (98-107) mmol/L Carbon Dioxide 22 (22-30) mmol/L Anion Gap 19 mmol/L BUN 10 (9-20) mg/dL Creatinine 1.1 (0.8-1.5) mg/dL Estimated GFR > 60 ml/min BUN/Creatinine Ratio 9 % Glucose 103 H (75-100) mg/dL Calcium 9.6 (8.4-10.2) mg/dL Total Bilirubin 0.40 (0.1-1.2) mg/dL AST 22 (5-40) units/L ALT 22 (7-56) units/L Alkaline Phosphatase 66 (35-129) units/L Troponin T < 0.010 (0.00-0.029) ng/mL Total Protein 8.8 H (6.3-8.2) g/dL Albumin 4.6 (3.9-5) g/dL Albumin/Globulin Ratio 1.1 % Lipase 20 (13-60) units/L - EKG Data 04/11/18 13:23 HR 74, sinus, normal axis, intervals wnl, no ST changes concerning for acute ischemia - Medical Decision Making Mr Stevenson is a 52 year-old man who presents after near-syncopal episode. After vomiting. No associated with chest pain, dyspnea. Prodrome of light headedness. No palpitations. Suspect this was vasovagal vs ACS vs dehydration vs electrolyte derangement vs arrhythmia. EKG NSR, non-ischemic. trop neg. Lytes and Cr wnl. Hgb normal/high, likely hemoconcentration. Given 1L NS and GI cocktail. Reports feeling better. Suspect this was vasovagal near-syncope as he was outside, walking, light headed without other cardiac symptoms. Given care instructions, return precautions. dc to home Critical care attestation.: If time is entered above; I have spent that time in minutes in the direct care of this critically ill patient, excluding procedure time. ED Disposition Clinical Impression: Near syncope Disposition: DC-01 TO HOME OR SELFCARE Is pt being admited?: No Condition: Stable Instructions: Dehydration (ED), Near Syncope (ED), Lightheadedness (ED) Referrals: PRIMARY CARE, [Primary Care Provider] - 3-5 Days
[2018-04-11 16:12] LABS: Basophils % (Auto) 0.2 % (0.0-1.8); Eosinophils % (Auto) 0.2 % (0.0-4.3); Hematocrit 46.9 % (35.5-45.6); Hemoglobin 15.4 gm/dl (11.8-15.2); Lymphocytes # (Auto) 0.8 K/mm3 (1.2-5.4); Lymphocytes % (Auto) 10.2 % (13.4-35.0); Mean Corpuscular HGB Conc 33 % (32-34); Mean Corpuscular Hemoglobin 29 pg (28-32); Mean Corpuscular Volume 87 fl (84-94); Monocytes # (Auto) 0.6 K/mm3 (0.0-0.8); Monocytes % (Auto) 7.7 % (0.0-7.3); Platelet Count 148 K/mm3 (140-440); Red Blood Count 5.38 M/mm3 (3.65-5.03); Red Cell Distribution Width 14.9 % (13.2-15.2)
[2018-04-11 16:31] LABS: Alanine Aminotransferase 22 units/L (7-56); Albumin 4.6 g/dL (3.9-5); BUN/Creatinine Ratio 9; Blood Urea Nitrogen 10 mg/dL (9-20); Calcium 9.6 mg/dL (8.4-10.2); Hemolysis Index 21; Lipase 20 units/L (13-60)
[2018-04-11 17:44] VITALS: BP 160/85
== END 2018-04-11 17:59 | disposition home or self-care (01) ==
LOC: ED 13:16
DX: R55 Syncope and collapse (principal); R42 Dizziness and giddiness; I10 Essential (primary) hypertension; R11.2 Nausea with vomiting, unspecified; R51 Headache; Z86.73 Personal history of transient ischemic attack (TIA), and cerebral infarction without residual deficits
CPT/HCPCS: 36415; 80053; 83690; 84484; 85025; 93005; 93010; 96361; 96374; 99283; J2405; J7030

== ENCOUNTER 2018-10-28 12:13 | Emergency (ER) | payer MEDICARE ==
--- NOTE | 2018-10-28 12:51 | Emergency Department Report ---
ED Recheck HPI - General Chief Complaint: Dizziness Stated Complaint: HOT FLASH/DIZZY/WEAK Source: patient Mode of arrival: Ambulatory Limitations: No Limitations - History of Present Illness Initial Comments: This is a 52-year-old after [place] male who presents for medication refills. Past medical history CVA with left sided weakness, hypertension, and pulmonary embolism. Patient states he took his last medication on Saturday and felt dizzy Saturday which is now resolved. He started taking aspirin daily and decided to come in to get refills. Patient states he usually see his neurologist in [place] but cannot afford to make a co-payment so he decided to come here. He denies chest pain, shortness of breath, radiating pain, visual changes, dizziness, nausea or vomiting. MD Complaint: medication refill request Onset/Timin -: days(s) Returns Today for: request for prescription Symptoms Since Prior Visit: no new symptoms Context: ran out of medication Associated Symptoms: none - Related Data Previous Rx's Medication Instructions Recorded Last Taken Type Lisinopril [Zestril] 20 mg PO QDAY #30 tablet 08/11/17 Unknown Rx Meclizine [Antivert] 12.5 mg PO BID PRN #60 tablet 09/10/17 Unknown Rx Aspirin [Aspirin BABY CHEW TAB] 81 mg PO QDAY 30 Days tab.chew 04/11/18 Unknown Rx Lisinopril 20 mg PO QDAY #30 tablet 10/28/18 Unknown Rx Simvastatin 40 mg PO QDAY #30 tablet 10/28/18 Unknown Rx amLODIPine [Norvasc] 10 mg PO DAILY #30 tab 10/28/18 Unknown Rx Allergies Allergy/AdvReac Type Severity Reaction Status Date / Time No Known Allergies Allergy Verified 10/28/18 12:17 ED Review of Systems ROS: Stated complaint: HOT FLASH/DIZZY/WEAK Other details as noted in HPI Constitutional: denies: chills, fever Respiratory: denies: cough, shortness of breath, wheezing Cardiovascular: denies: chest pain, palpitations Gastrointestinal: denies: abdominal pain, nausea, diarrhea Musculoskeletal: denies: back pain, joint swelling, arthralgia Neurological: denies: headache, weakness, paresthesias Psychiatric: denies: anxiety, depression ED Past Medical Hx - Past Medical History Hx Hypertension: Yes Hx CVA: Yes (L side deficits) Hx Congestive Heart Failure: No Hx Diabetes: No Hx Pulmonary Embolism: Yes Hx Liver Disease: No Hx Renal Disease: No Hx Sickle Cell Disease: No Hx Seizures: No Hx Asthma: No Hx COPD: No Hx Dementia: No Hx HIV: No - Surgical History Additional Surgical History: Peg tube placement - Social History Smoking Status: Never Smoker Substance Use Type: None - Medications Home Medications: Home Medications Medication Instructions Recorded Confirmed Last Taken Type Lisinopril [Zestril] 20 mg PO QDAY #30 tablet 08/11/17 Unknown Rx Meclizine [Antivert] 12.5 mg PO BID PRN #60 tablet 09/10/17 Unknown Rx Aspirin [Aspirin BABY CHEW TAB] 81 mg PO QDAY 30 Days tab.chew 04/11/18 Unknown Rx Lisinopril 20 mg PO QDAY #30 tablet 10/28/18 Unknown Rx Simvastatin 40 mg PO QDAY #30 tablet 10/28/18 Unknown Rx amLODIPine [Norvasc] 10 mg PO DAILY #30 tab 10/28/18 Unknown Rx ED Physical Exam - General Limitations: No Limitations General appearance: alert, in no apparent distress, obese - Eye Eye exam: Present: normal appearance, PERRL, EOMI Pupils: Present: normal accommodation - Respiratory Respiratory exam: Present: normal lung sounds bilaterally. Absent: respiratory distress - Cardiovascular Cardiovascular Exam: Present: regular rate, normal rhythm. Absent: systolic murmur, diastolic murmur, rubs, gallop - GI/Abdominal GI/Abdominal exam: Present: soft, normal bowel sounds. Absent: distended, tenderness, guarding, rebound, rigid, organomegaly, mass - Neurological Exam Neurological exam: Present: alert, oriented X3, normal gait - Psychiatric Psychiatric exam: Present: normal affect, normal mood - Skin Skin exam: Present: warm, dry, intact, normal color. Absent: rash ED Course Vital Signs 10/28/18 12:17 Temperature 98.9 F Pulse Rate 67 Respiratory 18 Rate Blood Pressure 138/78 O2 Sat by Pulse 99 Oximetry ED Recheck MDM - Differential Diagnosis Prescription Refill(s) - Medical Decision Making Patient was examined by this provider in fast track. Vitals are normal and patient is in no acute distress. Normal focal exam. EKG obtained and dictated by attending, normal sinus rhythm. Encounter for medication refills. Start simvastatin, amlodipine, and lisinopril. Instructed to follow-up with neurologist for further refills. Plan discussed with patient to discharge home and treat outpatient. He agrees with ER plan. Patient discharged home in stable condition. Follow up with PCP in 2-3 days. Critical care attestation.: If time is entered above; I have spent that time in minutes in the direct care of this critically ill patient, excluding procedure time. ED Disposition Clinical Impression: Encounter for medication refill Disposition: - TO HOME OR SELFCARE Is pt being admited?: No Does the pt Need Aspirin: No Condition: Stable Instructions: Hypertension (ED), DASH Eating Plan (ED), Hyperlipidemia (GEN) Additional Instructions: Follow-up with your neurologist for further refills. Prescriptions: amLODIPine [Norvasc] 10 mg PO DAILY #30 tab Lisinopril 20 mg PO QDAY #30 tablet Simvastatin 40 mg PO QDAY #30 tablet Referrals: DANILO TENORIO MD [Primary Care Provider] - 3-5 Days [facility] [Provider Group] - 3-5 Days Time of Disposition: 12:59
[2018-10-28 13:14] VITALS: BP 131/80
== END 2018-10-28 13:15 | disposition home or self-care (01) ==
LOC: ED 12:13
DX: R42 Dizziness and giddiness (principal); I10 Essential (primary) hypertension; Z86.73 Personal history of transient ischemic attack (TIA), and cerebral infarction without residual deficits; Z86.711 Personal history of pulmonary embolism; Z79.899 Other long term (current) drug therapy; Z76.0 Encounter for issue of repeat prescription
CPT/HCPCS: 93005; 93010; 99282

== ENCOUNTER 2019-01-02 09:28 | Emergency (ER) | payer MEDICARE ==
[2019-01-02 09:37] VITALS: BP 151/95
--- NOTE | 2019-01-02 10:19 | Emergency Department Report ---
ED Recheck HPI - General Chief Complaint: Medical Clearance Stated Complaint: MEDICATION REFILL Time Seen by Provider: 01/02/19 10:17 Source: patient Mode of arrival: Ambulatory Limitations: No Limitations - History of Present Illness Initial Comments: 53 YO HERE FOR MED REFILL. NO SYMPTOMS. STATED COULDNT GET BACK IN WITH HIS PCP TO GET THEM. Complaint: medication refill request Symptoms Since Prior Visit: no new symptoms - Related Data Previous Rx's Medication Instructions Recorded Last Taken Type Lisinopril [Zestril] 20 mg PO QDAY #30 tablet 08/11/17 Unknown Rx Meclizine [Antivert] 12.5 mg PO BID PRN #60 tablet 09/10/17 Unknown Rx Aspirin [Aspirin BABY CHEW TAB] 81 mg PO QDAY 30 Days tab.chew 01/02/19 Unknown Rx Lisinopril 20 mg PO QDAY #30 tablet 01/02/19 Unknown Rx Simvastatin 40 mg PO QDAY #30 tablet 01/02/19 Unknown Rx amLODIPine [Norvasc] 10 mg PO DAILY #30 tab 01/02/19 Unknown Rx Allergies Allergy/AdvReac Type Severity Reaction Status Date / Time No Known Allergies Allergy Verified 01/02/19 09:32 ED Review of Systems ROS: Stated complaint: MEDICATION REFILL Other details as noted in HPI Comment: All other systems reviewed and negative Constitutional: denies: chills Eyes: denies: eye pain ENT: denies: throat pain Respiratory: denies: orthopnea Endocrine: denies: intolerance to cold Gastrointestinal: denies: nausea Genitourinary: denies: dysuria Musculoskeletal: denies: as per HPI Skin: denies: rash Neurological: denies: headache Psychiatric: denies: anxiety Hematological/Lymphatic: denies: easy bleeding ED Past Medical Hx - Past Medical History Hx Hypertension: Yes Hx CVA: Yes (L side deficits) Hx Congestive Heart Failure: No Hx Diabetes: No Hx Pulmonary Embolism: Yes Hx Liver Disease: No Hx Renal Disease: No Hx Sickle Cell Disease: No Hx Seizures: No Hx Asthma: No Hx COPD: No Hx Dementia: No Hx HIV: No - Surgical History Additional Surgical History: Peg tube placement - Social History Smoking Status: Current Every Day Smoker Substance Use Type: None - Medications Home Medications: Home Medications Medication Instructions Recorded Confirmed Last Taken Type Lisinopril [Zestril] 20 mg PO QDAY #30 tablet 08/11/17 Unknown Rx Meclizine [Antivert] 12.5 mg PO BID PRN #60 tablet 09/10/17 Unknown Rx Aspirin [Aspirin BABY CHEW TAB] 81 mg PO QDAY 30 Days tab.chew 01/02/19 Unknown Rx Lisinopril 20 mg PO QDAY #30 tablet 01/02/19 Unknown Rx Simvastatin 40 mg PO QDAY #30 tablet 01/02/19 Unknown Rx amLODIPine [Norvasc] 10 mg PO DAILY #30 tab 01/02/19 Unknown Rx ED Physical Exam - General Limitations: No Limitations General appearance: alert - Head Head exam: Present: atraumatic - Eye Eye exam: Present: normal appearance, PERRL - ENT ENT exam: Present: normal exam - Neck Neck exam: Present: normal inspection - Respiratory Respiratory exam: Present: normal lung sounds bilaterally - Cardiovascular Cardiovascular Exam: Present: regular rate - GI/Abdominal GI/Abdominal exam: Present: soft - Extremities Exam Extremities exam: Present: normal inspection - Back Exam Back exam: Present: normal inspection - Neurological Exam Neurological exam: Present: alert, oriented X3 - Psychiatric Psychiatric exam: Present: normal affect, normal mood - Skin Skin exam: Present: warm, dry ED Course Vital Signs 01/02/19 09:33 Temperature 98.7 F Pulse Rate 77 Respiratory 16 Rate Blood Pressure 151/95 O2 Sat by Pulse 97 Oximetry ED Recheck MDM - Differential Diagnosis Prescription Refill(s) - Medical Decision Making MED REFILL. NO SYMPTOMS Vital Signs 01/02/19 09:33 Temperature 98.7 F Pulse Rate 77 Respiratory 16 Rate Blood Pressure 151/95 O2 Sat by Pulse 97 Oximetry Critical care attestation.: If time is entered above; I have spent that time in minutes in the direct care o f this critically ill patient, excluding procedure time. ED Disposition Clinical Impression: Medication refill Disposition: DC-01 TO HOME OR SELFCARE Is pt being admited?: No Does the pt Need Aspirin: No Condition: Stable Prescriptions: Aspirin [Aspirin BABY CHEW TAB] 81 mg PO QDAY 30 Days tab.chew Lisinopril 20 mg PO QDAY #30 tablet amLODIPine [Norvasc] 10 mg PO DAILY #30 tab Simvastatin 40 mg PO QDAY #30 tablet Referrals: [facility] [Outside] - 3-5 Days Time of Disposition: 10:25
== END 2019-01-02 10:40 | disposition home or self-care (01) ==
LOC: ED 09:28
DX: I10 Essential (primary) hypertension (principal); Z76.0 Encounter for issue of repeat prescription; F17.200 Nicotine dependence, unspecified, uncomplicated; Z79.82 Long term (current) use of aspirin; Z86.711 Personal history of pulmonary embolism
CPT/HCPCS: 99282

== ENCOUNTER 2019-02-03 09:50 | Emergency (ER) | payer MEDICARE ==
--- NOTE | 2019-02-03 12:15 | Emergency Department Report ---
Chief Complaint: Medical Clearance Stated Complaint: MED REFILL Time Seen by Provider: 02/03/19 11:53 - HPI History of Present Illness: Mr. Elias is a 53-year-old pleasant male who presents here for medication refill. Patient states he takes medication for Patient denies any symptoms today. Patient states she is feeling all right he's been doing well. He states that he is unable to make it to his primary care physician in time but has run out of his medications because he has been rescheduled. He denies serious S Yordy/nausea vomiting since chest pains or shortness breath headache blurry vision. - ROS Review of Systems: As noted in HPI - Exam Vital Signs: Vital Signs 02/03/19 10:02 Temperature 98 F Pulse Rate 69 Respiratory 18 Rate Blood Pressure 135/96 [Right] O2 Sat by Pulse 99 Oximetry Physical Exam: GENERAL: Alert and oriented x3, no apparent distress, Normal Gait, atraumatic. HEAD: Head is normocephalic and a-traumatic. EYES: Extra ocular muscles are intact. Pupils are equal, round, and reactive to light and accommodation. PSYCHIATRIC: Mood is congruent with affect, denies suicidal or homicidal ideations. SKIN: Warm and dry, No lesions, No ulceration or induration present. MSE screening note: Focused history and physical exam performed. Due to findings the following was ordered: ED Disposition for MSE Clinical Impression: Medication refill Disposition: DC-01 TO HOME OR SELFCARE Is pt being admited?: No Does the pt Need Aspirin: No Condition: Stable Additional Instructions: Make sure to follow up with the primary care physician as discussed. Take all your medications as you've been prescribed. If you have any worsening symptoms or develop new symptoms please return to ED immediately. Prescriptions: Meclizine [Antivert] 12.5 mg PO BID PRN #60 tablet PRN Reason: Vertigo Aspirin [Aspirin BABY CHEW TAB] 81 mg PO QDAY 30 Days #30 tab.chew Simvastatin 40 mg PO QDAY #30 tablet Lisinopril [Zestril TAB] 20 mg PO QDAY #60 tablet Referrals: JUAN MANUEL COWART MD [Primary Care Provider] - 3-5 Days Forms: Work/School Release Form(ED) Time of Disposition: 12:16
[2019-02-03 12:56] VITALS: BP 139/85
== END 2019-02-03 12:54 | disposition home or self-care (01) ==
LOC: ED 09:50
DX: I10 Essential (primary) hypertension (principal); R11.2 Nausea with vomiting, unspecified; Z53.21 Procedure and treatment not carried out due to patient leaving prior to being seen by health care provider
CPT/HCPCS: 99282

== ENCOUNTER 2019-04-10 11:21 | Emergency (ER) | payer MEDICARE ==
[2019-04-10 11:49] VITALS: BP 146/80
--- NOTE | 2019-04-10 11:51 | Event Note ---
ED Screening Note ED Screening Note: pt presents for a medication refill 10 mg of amlodipine once daily lisinopril 20mg daily simvastatin 40mg tablet once daily This initial assessment/diagnostic orders/clinical plan/treatment(s) is/are subject to change based on patients health status, clinical progression and re- assessment by fellow clinical providers in the ED. Further treatment and workup at subsequent clinical providers discretion. Patient/guardian urged not to elope from the ED as their condition may be serious if not clinically assessed and managed.
--- NOTE | 2019-04-10 11:53 | Emergency Department Report ---
ED Medical Clearance HPI - General Chief complaint: Medical Clearance Stated complaint: MEDICATION REFILL Time Seen by Provider: 04/10/19 11:47 Source: patient Mode of arrival: Ambulatory - History of Present Illness Initial comments: pt is a 53 yo male who presents for a medication refill. he states he could not afford his copay to see his PCP. pt has been in the ED several times for refill of his medications. he denies any symptoms at all. he states he just needs a refill. pt has his pill bottles with him that have prescriptions for 10 mg of amlodipine once daily, lisinopril 20mg daily, simvastatin 40mg tablet once daily. Home medications: Previous Rx's Medication Instructions Recorded Last Taken Type Lisinopril [Zestril] 20 mg PO QDAY #30 tablet 08/11/17 Unknown Rx Lisinopril 20 mg PO QDAY #30 tablet 01/02/19 Unknown Rx Aspirin [Aspirin BABY CHEW TAB] 81 mg PO QDAY 30 Days #30 tab.chew 02/03/19 Unknown Rx Lisinopril [Zestril TAB] 20 mg PO QDAY #30 tablet 04/10/19 Unknown Rx Simvastatin 40 mg PO QDAY #30 tablet 04/10/19 Unknown Rx amLODIPine [Norvasc] 10 mg PO DAILY #30 tab 04/10/19 Unknown Rx Allergies/Adverse reactions: Allergies Allergy/AdvReac Type Severity Reaction Status Date / Time No Known Allergies Allergy Verified 04/10/19 11:23 ED Review of Systems ROS: Stated complaint: MEDICATION REFILL Other details as noted in HPI Comment: All other systems reviewed and negative ED Past Medical Hx - Past Medical History Hx Hypertension: Yes Hx CVA: Yes (L side deficits) Hx Congestive Heart Failure: No Hx Diabetes: No Hx Pulmonary Embolism: Yes Hx Liver Disease: No Hx Renal Disease: No Hx Sickle Cell Disease: No Hx Seizures: No Hx Asthma: No Hx COPD: No Hx Dementia: No Hx HIV: No - Surgical History Additional Surgical History: Peg tube placement - Social History Smoking Status: Never Smoker Substance Use Type: None - Medications Home Medications: Home Medications Medication Instructions Recorded Confirmed Last Taken Type Lisinopril [Zestril] 20 mg PO QDAY #30 tablet 08/11/17 Unknown Rx Lisinopril 20 mg PO QDAY #30 tablet 01/02/19 Unknown Rx Aspirin [Aspirin BABY CHEW TAB] 81 mg PO QDAY 30 Days #30 tab.chew 02/03/19 Unknown Rx Lisinopril [Zestril TAB] 20 mg PO QDAY #30 tablet 04/10/19 Unknown Rx Simvastatin 40 mg PO QDAY #30 tablet 04/10/19 Unknown Rx amLODIPine [Norvasc] 10 mg PO DAILY #30 tab 04/10/19 Unknown Rx ED Physical Exam - General Limitations: No Limitations General appearance: alert, in no apparent distress - Head Head exam: Present: atraumatic, normocephalic - Eye Eye exam: Present: normal appearance, PERRL - ENT ENT exam: Present: mucous membranes moist - Neurological Exam Neurological exam: Present: alert, oriented X3 - Psychiatric Psychiatric exam: Present: normal affect, normal mood - Skin Skin exam: Present: warm, dry, intact ED Course Vital Signs 04/10/19 11:48 Temperature 97.9 F Pulse Rate 98 H Respiratory 18 Rate Blood Pressure 146/80 O2 Sat by Pulse 96 Oximetry ED Medical Decision Making - Medical Decision Making pt is a 53 yo male who presents for a medication refill. he states he could not afford his copay to see his PCP. pt has been in the ED several times for refill of his medications. he denies any symptoms at all. he states he just needs a refill. pt has his pill bottles with him that have prescriptions for 10 mg of amlodipine once daily, lisinopril 20mg daily, simvastatin 40mg tablet once daily. vitals are normal. pt given prescriptions for a 1 month supply of medications. advised pt to please take medications as prescribed. please follow up with a primary care doctor in the next 2-3 days. future refills of your medications will need to come from your primary care doctor or one of the clinics listed below. you need to see a primary care doctor on a regular basis to manage your chronic medical conditions. return to the emergency room for any new or worsening symptoms. pt given a list of community resources. ED Disposition Clinical Impression: Medication refill Disposition: - TO HOME OR SELFCARE Is pt being admited?: No Does the pt Need Aspirin: No Condition: Stable Additional Instructions: please take medications as prescribed. please follow up with a primary care doctor in the next 2-3 days. future refills of your medications will need to come from your primary care doctor or one of the clinics listed below. you need to see a primary care doctor on a regular basis to manage your chronic medical conditions. return to the emergency room for any new or worsening symptoms. Prescriptions: amLODIPine [Norvasc] 10 mg PO DAILY #30 tab Simvastatin 40 mg PO QDAY #30 tablet Lisinopril [Zestril TAB] 20 mg PO QDAY #30 tablet Referrals: [facility] [Outside] - 3-5 Days [facility] [Provider Group] - 3-5 Days [facility] [Outside] - 3-5 Days Time of Disposition: 11:52 Print Language: LIBYAN
== END 2019-04-10 12:27 | disposition home or self-care (01) ==
LOC: ED 11:21
DX: I10 Essential (primary) hypertension (principal); Z76.0 Encounter for issue of repeat prescription; Z86.73 Personal history of transient ischemic attack (TIA), and cerebral infarction without residual deficits; Z86.711 Personal history of pulmonary embolism; Z93.1 Gastrostomy status; Z79.899 Other long term (current) drug therapy
CPT/HCPCS: 99282

== ENCOUNTER 2019-06-03 09:45 | Emergency (ER) | payer MEDICARE ==
[2019-06-03 09:49] VITALS: BP 152/89
--- NOTE | 2019-06-03 10:11 | Emergency Department Report ---
ED Recheck HPI - General Chief Complaint: Medical Clearance Stated Complaint: MEDICATION REFILL Time Seen by Provider: 06/03/19 10:04 Source: patient Mode of arrival: Ambulatory Limitations: No Limitations - History of Present Illness Initial Comments: pT is a 53-year-old male comes to the ER for his medication refills. He is well-known to the ER. He denies any complaints. He states that he has just run out of his medications and does not have a primary care. We've had a long discussion about this as we have in the past. I told him that we could not continue to do this because he needs to follow up with outpatient physician who follows him. He verbalizes understanding. - Related Data Previous Rx's Medication Instructions Recorded Last Taken Type Aspirin [Aspirin BABY CHEW TAB] 81 mg PO QDAY 30 Days #30 tab.chew 02/03/19 Unknown Rx Lisinopril [Zestril TAB] 20 mg PO QDAY #30 tablet 04/10/19 Unknown Rx Simvastatin 40 mg PO QDAY #30 tablet 04/10/19 Unknown Rx amLODIPine [Norvasc] 10 mg PO DAILY #30 tab 04/10/19 Unknown Rx Aspirin [Aspirin BABY CHEW TAB] 81 mg PO QDAY #30 tab.chew 06/03/19 Unknown Rx Lisinopril [Zestril TAB] 20 mg PO QDAY #30 tablet 06/03/19 Unknown Rx Simvastatin 40 mg PO QHS #30 tablet 06/03/19 Unknown Rx amLODIPine [Norvasc] 10 mg PO DAILY #30 tab 06/03/19 Unknown Rx Allergies Allergy/AdvReac Type Severity Reaction Status Date / Time No Known Allergies Allergy Verified 04/10/19 11:23 ED Review of Systems ROS: Stated complaint: MEDICATION REFILL Other details as noted in HPI Comment: All other systems reviewed and negative ED Past Medical Hx - Past Medical History Previous Medical History?: Yes Hx Hypertension: Yes Hx CVA: Yes (L side deficits) Hx Congestive Heart Failure: No Hx Diabetes: No Hx Pulmonary Embolism: Yes Hx Liver Disease: No Hx Renal Disease: No Hx Sickle Cell Disease: No Hx Seizures: No Hx Asthma: No Hx COPD: No Hx Dementia: No Hx HIV: No - Surgical History Past Surgical History?: Yes Additional Surgical History: Peg tube placement - Social History Smoking Status: Never Smoker - Medications Home Medications: Home Medications Medication Instructions Recorded Confirmed Last Taken Type Aspirin [Aspirin BABY CHEW TAB] 81 mg PO QDAY 30 Days #30 tab.chew 02/03/19 Unknown Rx Lisinopril [Zestril TAB] 20 mg PO QDAY #30 tablet 04/10/19 Unknown Rx Simvastatin 40 mg PO QDAY #30 tablet 04/10/19 Unknown Rx amLODIPine [Norvasc] 10 mg PO DAILY #30 tab 04/10/19 Unknown Rx Aspirin [Aspirin BABY CHEW TAB] 81 mg PO QDAY #30 tab.chew 06/03/19 Unknown Rx Lisinopril [Zestril TAB] 20 mg PO QDAY #30 tablet 06/03/19 Unknown Rx Simvastatin 40 mg PO QHS #30 tablet 06/03/19 Unknown Rx amLODIPine [Norvasc] 10 mg PO DAILY #30 tab 06/03/19 Unknown Rx ED Physical Exam - General Limitations: No Limitations General appearance: alert - Head Head exam: Present: normocephalic - Eye Eye exam: Present: normal appearance, PERRL - ENT ENT exam: Present: mucous membranes moist - Neck Neck exam: Present: normal inspection - Respiratory Respiratory exam: Present: normal lung sounds bilaterally - Cardiovascular Cardiovascular Exam: Present: regular rate - GI/Abdominal GI/Abdominal exam: Present: soft, normal bowel sounds - Rectal Rectal exam: Present: deferred - Extremities Exam Extremities exam: Present: normal inspection, full ROM - Back Exam Back exam: Present: normal inspection, full ROM - Neurological Exam Neurological exam: Present: alert, oriented X3 ED Course Vital Signs 06/03/19 09:48 Temperature 98.8 F Pulse Rate 73 Respiratory 18 Rate Blood Pressure 152/89 O2 Sat by Pulse 96 Oximetry ED Recheck MDM - Core Measures Measure Exclusions: not indicated - Differential Diagnosis Prescription Refill(s) - Medical Decision Making NO SYMPTOMS NO COLE, CP, SOB MED REFILL ONLY PT EDUCATED ON FOLLOW UP AND DC HOME Vital Signs 06/03/19 09:48 Temperature 98.8 F Pulse Rate 73 Respiratory 18 Rate Blood Pressure 152/89 O2 Sat by Pulse 96 Oximetry Critical care attestation.: If time is entered above; I have spent that time in minutes in the direct care of this critically ill patient, excluding procedure time. ED Disposition Clinical Impression: Medication refill Disposition: DC-01 TO HOME OR SELFCARE Is pt being admited?: No Does the pt Need Aspirin: No Condition: Stable Prescriptions: Simvastatin 40 mg PO QHS #30 tablet Aspirin [Aspirin BABY CHEW TAB] 81 mg PO QDAY #30 tab.chew amLODIPine [Norvasc] 10 mg PO DAILY #30 tab Lisinopril [Zestril TAB] 20 mg PO QDAY #30 tablet Referrals: KEN GREGORY MD [Staff Physician] - 3-5 Days ALLA MOORE MD [Staff Physician] - 3-5 Days [facility] [Outside] - 3-5 Days Time of Disposition: 10:08
== END 2019-06-03 10:20 | disposition home or self-care (01) ==
LOC: ED 09:45
DX: I10 Essential (primary) hypertension (principal); Z76.0 Encounter for issue of repeat prescription; I25.2 Old myocardial infarction; Z79.899 Other long term (current) drug therapy; Z86.711 Personal history of pulmonary embolism; Z79.01 Long term (current) use of anticoagulants
CPT/HCPCS: 99282

== ENCOUNTER 2019-08-20 18:29 | Inpatient (IN) | payer MEDICARE ==
--- NOTE | 2019-08-20 19:06 | Cat Scan Report ---
CT head/brain wo con INDICATION / CLINICAL INFORMATION: 53 years Male; neuro deficits <6hrs or sx present upon awakening. TECHNIQUE: Routine CT head without contrast. All CT scans at this location are performed using CT dos e reduction for ALARA by means of automated exposure control. COMPARISON: 01/07/2017 FINDINGS: BRAIN / INTRACRANIAL CONTENTS: No acute hemorrhage, mass effect, midline shift, hydrocephalus, or acu te, large territorial infarct. Mild cerebral and cerebellar atrophy. Branch SCA infarcts suggested bilaterally-these findings have progressed from prior - diffusion imagi ng by MRI may be of benefit. Old, small branch MCA infarct suggested posteriorly in the right tempora l lobe-new from prior. Small branch infarcts suggested near the superior parietal lobule on the right . Small lacunar infarcts seen in the irma leftward of midline. There are mild areas of decreased attenuation in the white matter of the cerebral hemispheres. These are nonspecific findings and may be related to microangiopathy (hypertension, diabetes, atheroscleros is), given the patient's age. It might be difficult to evaluate for small areas of ischemia without d iffusion imaging by MRI. CRANIOCERVICAL JUNCTION: No significant abnormality. ORBITS: No significant abnormality of visualized orbits. SINUSES / MASTOIDS: No significant abnormality the visualized paranasal sinuses or mastoid air cells. ADDITIONAL FINDINGS: Atherosclerotic disease is seen in the anterior and posterior circulation. IMPRESSION: 1. Multiple, small branch infarcts as described above. Some of these findings are age-indeterminate w ithout diffusion imaging by MRI. 2. Otherwise, no focal mass, hemorrhage, hydrocephalus, or acute, large territorial infarct seen. This exam was performed as part of a code stroke protocol. The exam was completed on 08/20/2019 5:49 PM. The exam was reviewed at 5:[address] Anderson was notified at 6:05 PM. Signer Name: Pantera Santiago MD, III Signed: 08/20/2019 7:02 PM Workstation Name: [id number]
[2019-08-20 19:11] LABS: Basophils % (Auto) 0.4 % (0.0-1.8); Eosinophils # (Auto) 0.1 K/mm3 (0.0-0.4); Eosinophils % (Auto) 1.3 % (0.0-4.3); Hemoglobin 15.6 gm/dl (11.8-15.2); Lymphocytes # (Auto) 1.7 K/mm3 (1.2-5.4); Mean Corpuscular HGB Conc 33 % (32-34); Mean Corpuscular Volume 87 fl (84-94); Monocytes # (Auto) 0.6 K/mm3 (0.0-0.8); Monocytes % (Auto) 10.7 % (0.0-7.3); Red Blood Count 5.52 M/mm3 (3.65-5.03); Red Cell Distribution Width 13.7 % (13.2-15.2)
[2019-08-20 19:22] LABS: INR 1.1 (0.87-1.13); Partial Thromboplastin Time 32.6 Sec. (24.2-36.6)
--- NOTE | 2019-08-20 19:26 | Emergency Department Report ---
ED Neuro Deficit HPI - General Chief Complaint: Neuro Symptoms/Deficit Stated Complaint: HEAD PROBLEMS Time Seen by Provider: 08/20/19 18:42 Source: patient Mode of arrival: Ambulatory Limitations: No Limitations - History of Present Illness Initial Comments: [facility] Date of Service: 08/20/2019 18:35:17 Impression: RO Acute Ischemic Stroke Comments: 53 year old male with episodes of vertigo which may be due to posterior circulation stroke vs nonspecific encephalopathy. Mechanism of Stroke: Not Clear Metrics: Last Known Well: 08/19/2019 09:00:00 [employer] Notification Time: 08/20/2019 18:34:37 Arrival Time: 08/20/2019 18:29:00 Stamp Time: 08/20/2019 18:35:17 Time First Login Attempt: 08/20/2019 18:35:00 Video Start Time: 08/20/2019 18:35:00 Symptoms: Vertigo NIHSS Start Assessment Time: 08/20/2019 19:10:00 Patient is not a candidate for tPA. Patient was not deemed candidate for tPA thrombolytics because of Last Well Known Above 4.5 Hours. Video End Time: 08/20/2019 19:22:29 CT head was reviewed. Advanced imaging was not obtained as the presentation was not suggestive of Large Vessel Occlusive Disease. Radiologist was not called back for review of advanced imaging because Symptoms not consistent with LVO ER Physician notified of the decision on thrombolytics management on 08/20/2019 19:22:31 Our recommendations are outlined below. Recommendations: Activate Stroke Protocol Admission/Order Set Stroke/Telemetry Floor Neuro Checks Bedside Swallow Eval DVT Prophylaxis IV Fluids, Normal Saline Head of Bed Below 30 Degrees Euglycemia and Avoid Hyperthermia (PRN Acetaminophen) Antiplatelet Therapy Recommended Recommended Scan: MRI Head Without Contrast MRA Head Without Contrast MRA Neck with and Without Contrast Echocardiogram - Transthoracic Echocardiogram Lipid Panel to Be Obtained, if Not Done in the Last Three Months Therapies: Physical Therapy, Occupational Therapy, Speech Therapy Assessment When Applicable Dysphaghia Screen: NPO Until Swallow Evaluation DVT prophylaxis: Choice of Primary Team Disposition: Follow up with Teleneurology Follow up Sign Out: Discussed with Emergency Department Provider History of Present Illness: Patient is a 53 year old Male. Patient was brought by private transportation with symptoms of Vertigo 53 year old male who presents to the hospital because of episodes vertigo with nausea and vomiting. Arthur reports this started yesterday morning after his morning walk and has been on and off since then. CT head was reviewed. Examination: 1A: Level of Consciousness - Alert; keenly responsive + 0 1B: Ask Month and Age - Both Questions Right + 0 1C: Blink Eyes & Squeeze Hands - Performs Both Tasks + 0 2: Test Horizontal Extraocular Movements - Normal + 0 3: Test Visual Do - No Visual Loss + 0 4: Test Facial Palsy (Use Grimace if Obtunded) - Normal symmetry + 0 5A: Test Left Arm Motor Drift - No Drift for 10 Seconds + 0 5B: Test Right Arm Motor Drift - No Drift for 10 Seconds + 0 6A: Test Left Leg Motor Drift - No Drift for 5 Seconds + 0 6B: Test Right Leg Motor Drift - No Drift for 5 Seconds + 0 7: Test Limb Ataxia (FNF/Heel-Coppola) - No Ataxia + 0 8: Test Sensation - Normal; No sensory loss + 0 9: Test Language/Aphasia - Normal; No aphasia + 0 10: Test Dysarthria - Normal + 0 11: Test Extinction/Inattention - No abnormality + 0 NIHSS Score: 0 Patient was informed the Neurology Consult would happen via TeleHealth consult by way of interactive audio and video telecommunications and consented to receiving care in this manner. Due to the immediate potential for life-threatening deterioration due to underlying acute neurologic illness, I spent 35 minutes providing critical care. This time includes time for face to face visit via telemedicine, review of medical records, imaging studies and discussion of findings with providers, the patient and/or family. Dr Fabiola Dudley [employer] - Related Data Home Medications: Previous Rx's Medication Instructions Recorded Last Taken Type Aspirin [Aspirin BABY CHEW TAB] 81 mg PO QDAY 30 Days #30 tab.chew 02/03/19 Unknown Rx Lisinopril [Zestril TAB] 20 mg PO QDAY #30 tablet 04/10/19 Unknown Rx Simvastatin 40 mg PO QDAY #30 tablet 04/10/19 Unknown Rx amLODIPine 10 mg PO DAILY #30 tab 04/10/19 Unknown Rx Aspirin [Aspirin BABY CHEW TAB] 81 mg PO QDAY #30 tab.chew 06/03/19 Unknown Rx Lisinopril [Zestril TAB] 20 mg PO QDAY #30 tablet 06/03/19 Unknown Rx Simvastatin 40 mg PO QHS #30 tablet 06/03/19 Unknown Rx amLODIPine [Norvasc] 10 mg PO DAILY #30 tab 06/03/19 Unknown Rx Allergies/Adverse Reactions: Allergies Allergy/AdvReac Type Severity Reaction Status Date / Time No Known Allergies Allergy Verified 04/10/19 11:23 ED Review of Systems ROS: Stated complaint: HEAD PROBLEMS Other details as noted in HPI ED Past Medical Hx - Past Medical History Previous Medical History?: Yes Hx Hypertension: Yes Hx CVA: Yes (L side deficits x 2) Hx Congestive Heart Failure: No Hx Diabetes: No Hx Pulmonary Embolism: Yes Hx Liver Disease: No Hx Renal Disease: No Hx Sickle Cell Disease: No Hx Seizures: No Hx Asthma: No Hx COPD: No Hx Dementia: No Hx HIV: No - Surgical History Past Surgical History?: Yes Additional Surgical History: Peg tube placement - Social History Smoking Status: Never Smoker Substance Use Type: None - Medications Home Medications: Home Medications Medication Instructions Recorded Confirmed Last Taken Type Aspirin [Aspirin BABY CHEW TAB] 81 mg PO QDAY 30 Days #30 tab.chew 02/03/19 Unknown Rx Lisinopril [Zestril TAB] 20 mg PO QDAY #30 tablet 04/10/19 Unknown Rx Simvastatin 40 mg PO QDAY #30 tablet 04/10/19 Unknown Rx amLODIPine 10 mg PO DAILY #30 tab 04/10/19 Unknown Rx Aspirin [Aspirin BABY CHEW TAB] 81 mg PO QDAY #30 tab.chew 06/03/19 Unknown Rx Lisinopril [Zestril TAB] 20 mg PO QDAY #30 tablet 06/03/19 Unknown Rx Simvastatin 40 mg PO QHS #30 tablet 06/03/19 Unknown Rx amLODIPine [Norvasc] 10 mg PO DAILY #30 tab 06/03/19 Unknown Rx ED Neuro Physical Exam - General Limitations: No Limitations Suspected Stroke: Yes - NIHSS Assessment Interval: Baseline 1a. Level of Consciousness: alert/keenly responsive 1b. LOC Questions: answers both correctly 1c. LOC Commands: performs tasks correctly 2. Best Gaze: normal 3. Visual: no visual loss 4. Facial Palsy: normal symmetrical movement 5b. Motor Arm Right: no drift 5a. Motor Arm Left: no drift 6a. Motor Leg Left: no drift 6b. Motor Leg Right: no drift 7. Limb Ataxia: absent 8. Sensory: normal 9. Best Language: no aphasia 10. Dysarthria: normal 11. Extinction/Inattention: no abnormality Total Score: 0 Stroke Severity: No Stroke Symptoms ED Course Vital Signs 08/20/19 08/20/19 08/20/19 18:44 18:50 19:00 Temperature 98.0 F Pulse Rate 88 128 H 82 Respiratory 16 16 Rate Blood Pressure 143/90 Blood Pressure 158/97 [Right] O2 Sat by Pulse 97 97 Oximetry 08/20/19 19:15 Temperature Pulse Rate 79 Respiratory 21 Rate Blood Pressure 140/86 Blood Pressure [Right] O2 Sat by Pulse 100 Oximetry - Lab Data Result diagrams: 08/20/19 19:03 Lab Results 08/20/19 08/20/19 Range/Units 18:46 19:03 WBC 6.1 (4.5-11.0) K/mm3 RBC 5.52 H (3.65-5.03) M/mm3 Hgb 15.6 H (11.8-15.2) gm/dl Hct 48.0 H (35.5-45.6) % MCV 87 (84-94) fl MCH 28 (28-32) pg MCHC 33 (32-34) % RDW 13.7 (13.2-15.2) % Lymph % (Auto) 28.0 (13.4-35.0) % [place] % (Auto) 10.7 H (0.0-7.3) % Eos % (Auto) 1.3 (0.0-4.3) % Baso % (Auto) 0.4 (0.0-1.8) % Lymph # 1.7 (1.2-5.4) K/mm3 [place] # 0.6 (0.0-0.8) K/mm3 Eos # 0.1 (0.0-0.4) K/mm3 Baso # 0.0 (0.0-0.1) K/mm3 Seg Neutrophils % 59.6 (40.0-70.0) % Seg Neutrophils # 3.6 (1.8-7.7) K/mm3 POC Glucose 113 H (70-105) Critical care attestation.: If time is entered above; I have spent that time in minutes in the direct care of this critically ill patient, excluding procedure time. ED Disposition Clinical Impression: Vertigo Disposition: DC-09 OP ADMIT IP TO THIS HOSP Is pt being admited?: Yes Condition: Stable
[2019-08-20 19:31] LABS: BUN/Creatinine Ratio 11; Blood Urea Nitrogen 13 mg/dL (9-20); Calcium 9.2 mg/dL (8.4-10.2); Hemolysis Index 13
--- NOTE | 2019-08-20 19:42 | Emergency Department Report ---
HPI - General Chief Complaint: Neuro Symptoms/Deficit Time Seen by Provider: 08/20/19 18:42 - HPI HPI: 53-year-old -[place] male presents to the emergency department with a complaint of a headache, some generalized weakness, blurry vision that has been going on intermittently for the past 24 hours. However, earlier today, around 2 PM the patient said he sat down to try and rest and was unable to get up. He ended up falling to the floor and was unable to get up off the floor. At that time he had some difficulty with his speech and the blurry vision. Both of which she says has currently resolved. The patient presented through triage as a code stroke. 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 ED Past Medical Hx - Past Medical History Previous Medical History?: Yes Hx Hypertension: Yes Hx CVA: Yes (L side deficits x 2) Hx Congestive Heart Failure: No Hx Diabetes: No Hx Pulmonary Embolism: Yes Hx Liver Disease: No Hx Renal Disease: No Hx Sickle Cell Disease: No Hx Seizures: No Hx Asthma: No Hx COPD: No Hx Dementia: No Hx HIV: No - Surgical History Past Surgical History?: Yes Additional Surgical History: Peg tube placement - Social History Smoking Status: Never Smoker Substance Use Type: None - Medications Home Medications: Home Medications Medication Instructions Recorded Confirmed Last Taken Type Aspirin [Aspirin BABY CHEW TAB] 81 mg PO QDAY 30 Days #30 tab.chew 02/03/19 Unknown Rx Lisinopril [Zestril TAB] 20 mg PO QDAY #30 tablet 04/10/19 Unknown Rx Simvastatin 40 mg PO QDAY #30 tablet 04/10/19 Unknown Rx amLODIPine 10 mg PO DAILY #30 tab 04/10/19 Unknown Rx Aspirin [Aspirin BABY CHEW TAB] 81 mg PO QDAY #30 tab.chew 06/03/19 Unknown Rx Lisinopril [Zestril TAB] 20 mg PO QDAY #30 tablet 06/03/19 Unknown Rx Simvastatin 40 mg PO QHS #30 tablet 06/03/19 Unknown Rx amLODIPine [Norvasc] 10 mg PO DAILY #30 tab 06/03/19 Unknown Rx ED Review of Systems ROS: Stated complaint: HEAD PROBLEMS Other details as noted in HPI Comment: All other systems reviewed and negative Constitutional: weakness. denies: chills, fever Eyes: vision change. denies: eye pain ENT: denies: ear pain, throat pain Respiratory: denies: cough, shortness of breath Cardiovascular: denies: chest pain, palpitations Gastrointestinal: denies: abdominal pain, vomiting Genitourinary: denies: dysuria, discharge Musculoskeletal: denies: back pain, arthralgia Skin: denies: rash, lesions Neurological: headache, weakness Physical Exam - Physical Exam Vital Signs: Vital Signs 08/20/19 08/20/19 08/20/19 18:44 18:50 19:00 Temperature 98.0 F Pulse Rate 88 128 H 82 Respiratory 16 16 Rate Blood Pressure 143/90 Blood Pressure 158/97 [Right] O2 Sat by Pulse 97 97 Oximetry 08/20/19 19:15 Temperature Pulse Rate 79 Respiratory 21 Rate Blood Pressure 140/86 Blood Pressure [Right] O2 Sat by Pulse 100 Oximetry Physical Exam: GENERAL: The patient is well-developed well-nourished. HENT: Normocephalic. Atraumatic. Patient has moist mucous membranes. Oropharynx clear. Patient has multiple dental caries and multiple missing teeth. EYES: Extraocular motions are intact. Pupils equal reactive to light bilaterally. No nystagmus. NECK: Supple. Trachea is midline. CHEST/LUNGS: Clear to auscultation. There is no respiratory distress noted. HEART/CARDIOVASCULAR: Regular. There is no tachycardia. There is no murmur. ABDOMEN: Abdomen is soft, nontender. Patient has normal bowel sounds. There is no abdominal distention. SKIN: Skin is warm and dry. NEURO: The patient is awake, alert, and oriented. The patient is cooperative. Patient has bilateral upper extremity tremors. No sensory deficits. Normal speech. Cranial nerves II through XII grossly intact. No pronator drift. MUSCULOSKELETAL: There is no tenderness or deformity. There is no evidence of acute injury. ED Course Vital Signs 08/20/19 08/20/19 08/20/19 18:44 18:50 19:00 Temperature 98.0 F Pulse Rate 88 128 H 82 Respiratory 16 16 Rate Blood Pressure 143/90 Blood Pressure 158/97 [Right] O2 Sat by Pulse 97 97 Oximetry 08/20/19 19:15 Temperature Pulse Rate 79 Respiratory 21 Rate Blood Pressure 140/86 Blood Pressure [Right] O2 Sat by Pulse 100 Oximetry - Consultations Consultation #1: The patient was seen by the telemedicine neurologist, Dr. Dudley, shortly after the patient returned from CT imaging of the head. She did a bedside evaluation, came up with a NIH stroke scale of 0 and agree that the patient does not appear to be a TPA candidate. However he does recommend admission to the hospital for MRI and further evaluation. 08/20/19 23:04 ED Medical Decision Making - Lab Data Result diagrams: 08/20/19 19:03 08/20/19 19:03 - EKG Data -: EKG Interpreted by Ma EKG shows normal: sinus rhythm, axis, intervals, QRS complexes, ST-T waves (flattening of T waves) Rate: normal - EKG Data When compared to previous EKG there are: no significant change Interpretation: unchanged when compared t (10/28/18) - Radiology Data Radiology results: report reviewed CT head/brain wo con INDICATION / CLINICAL INFORMATION: 53 years Male; neuro deficits <6hrs or sx present upon awakening. TECHNIQUE: Routine CT head without contrast. All CT scans at this location are performed using CT dose reduction for ALARA by means of automated exposure control. COMPARISON: 01/07/2017 FINDINGS: BRAIN / INTRACRANIAL CONTENTS: No acute hemorrhage, mass effect, midline shift, hydrocephalus, or acute, large territorial infarct. Mild cerebral and cerebellar atrophy. Branch SCA infarcts suggested bilaterally-these findings have progressed from prior - diffusion imaging by MRI may be of benefit. Old, small branch MCA infarct suggested posteriorly in the right temporal lobe-new from prior. Small branch infarcts suggested near the superior parietal lobule on the right. Small lacunar infarcts seen in the irma leftward of midline. There are mild areas of decreased attenuation in the white matter of the cerebral hemispheres. These are nonspecific findings and may be related to microangiopathy (hypertension, diabetes, atherosclerosis), given the patient's age. It might be difficult to evaluate for small areas of ischemia without diffusion imaging by MRI. CRANIOCERVICAL JUNCTION: No significant abnormality. ORBITS: No significant abnormality of visualized orbits. SINUSES / MASTOIDS: No significant abnormality the visualized paranasal sinuses or mastoid air cells. ADDITIONAL FINDINGS: Atherosclerotic disease is seen in the anterior and posterior circulation. IMPRESSION: 1. Multiple, small branch infarcts as described above. Some of these findings are age-indeterminate without diffusion imaging by MRI. 2. Otherwise, no focal mass, hemorrhage, hydrocephalus, or acute, large territorial infarct seen. - Medical Decision Making This patient presents to the emergency department as a code stroke. His complaints are relatively nonspecific as he talks about some generalized weakness, blurry vision but did not express that he had any focal or lateralizing deficits. On examination he has bilateral upper extremity tremor once again there is no focal deficits. A CT scan of the head without contrast shows multiple small branch infarcts that are most likely chronic. No focal mass, hemorrhage, hydrocephalus or acute large territorial infarct is seen. Patient's labs are unremarkable. EKG did not show any signs of ST elevation IN or dysrhythmia. His vital signs stable throughout the ED course. Patient was seen by the telemedicine neurologist who agrees he is not a TPA candidate but recommends admission to the hospital for further evaluation and treatment. The patient was accepted for admission by the hospitalist, Dr. Langford. - Differential Diagnosis CVA, TIA, Dysrythmia, Hypoglycemia Critical Care Time: No Critical care attestation.: If time is entered above; I have spent that time in minutes in the direct care of this critically ill patient, excluding procedure time. ED Disposition Clinical Impression: Weakness, TIA (transient ischemic attack) Disposition: OP ADMIT IP TO THIS HOSP Is pt being admited?: Yes Condition: Fair Time of Disposition: 23:06
[2019-08-20 19:45] LABS: Platelet Count 132 K/mm3 (140-440)
[2019-08-20] MEDS ORDERED: MAGNESIUM HYDROXIDE (MOM) ORAL LIQD UDC PO PRN (19:52)
[2019-08-20] MEDS ORDERED: PROMETHAZINE 25 MG RECT SUPP PR PRN (19:52)
[2019-08-20] MEDS ORDERED: ONDANSETRON 4 MG/2 ML INJ IV PRN (19:52)
[2019-08-20] MEDS ORDERED: ALBUTEROL 2.5 MG/3 ML NEBU IH PRN (19:52)
[2019-08-20] MEDS ORDERED: METOCLOPRAMIDE 10 MG TAB PO PRN (19:52)
--- NOTE | 2019-08-20 19:52 | History and Physical Report ---
History of Present Illness Chief complaint: I got real weak History of present illness: 53 YO Male with HTN, CVA with LHP, PE not taking therapeutic anticoagulation presents to ED for evaluation. Pt states that he experienced blurry vision over thepast 1 day with worsening symptoms over the same time frame, as well as suddenly worsening feeling of being "off balance" combined with slurred speech about 3 hours prior to presentation to hospital. Pt transported to [facility] via private vehicle several hours after onset of the aforementioned symptoms. Pt seen and evaluated in ED and a code stroke was initiated upon arrival. Pt found to have symptoms consistent with CVA. Teleneurology consulted. Pt deemed not a candidate for TPA. Pt placed in observation status and admitted to medical floor. Pt denies fever, chills, CP, Palpitations, Syncope, Productive cough, or recent ill contacts. Prior admission on 09/27/14 reviewed. All listed medication reconciled at time of admission. Neurology consulted in ED. Past History Past Medical History: other (see HPI) Past Surgical History: Other (PEG) Social history: single. denies: smoking, alcohol abuse, prescription drug abuse Family history: hypertension Medications and Allergies Allergies Allergy/AdvReac Type Severity Reaction Status Date / Time No Known Allergies Allergy Verified 04/10/19 11:23 Home Medications Medication Instructions Recorded Confirmed Last Taken Type Aspirin [Aspirin BABY CHEW TAB] 81 mg PO QDAY 30 Days #30 tab.chew 02/03/19 Unknown Rx Lisinopril [Zestril TAB] 20 mg PO QDAY #30 tablet 04/10/19 Unknown Rx Simvastatin 40 mg PO QDAY #30 tablet 04/10/19 Unknown Rx amLODIPine 10 mg PO DAILY #30 tab 04/10/19 Unknown Rx Aspirin [Aspirin BABY CHEW TAB] 81 mg PO QDAY #30 tab.chew 06/03/19 Unknown Rx Lisinopril [Zestril TAB] 20 mg PO QDAY #30 tablet 06/03/19 Unknown Rx Simvastatin 40 mg PO QHS #30 tablet 06/03/19 Unknown Rx amLODIPine [Norvasc] 10 mg PO DAILY #30 tab 06/03/19 Unknown Rx Review of Systems Constitutional: no weight loss, no weight gain, no fever, no chills Eyes: bilateral: blurred vision Ears, nose, mouth and throat: no ear pain, no ear discharge, no tinnitis, no decreased hearing Cardiovascular: no chest pain, no orthopnea, no palpitations, no rapid/irregular heart beat, no lightheadedness Respiratory: no cough, no excessive sputum, no hemoptysis, no shortness of breath Gastrointestinal: no abdominal pain, no nausea, no diarrhea, no change in bowel habits, no hematemesis Genitourinary Male: no hematuria, no flank pain, no urinary frequency, no nocturia Rectal: no bleeding Musculoskeletal: no neck pain, no shooting arm pain, no low back pain, no leg numbness/tingling Integumentary: no rash, no redness, no sores Neurological: weakness, ataxia, change in speech, loss of vision, no numbness, no tingling, no seizures Psychiatric: no anxiety, no memory loss, no insomnia, no hypersomnia, no change in appetite, no change in libido, no suicidal ideation Endocrine: no cold intolerance, no heat intolerance, no excessive thirst, no polydipsia, no nocturia Hematologic/Lymphatic: no easy bruising, no easy bleeding, no lymphadenopathy, no lymphedema, no thrombophilia, no other Allergic/Immunologic: no urticaria, no allergic rhinitis, no persistent infections, no angioedema, no seasonal allergies Exam - Constitutional Vitals: Temp Pulse Resp BP Pulse Ox 98.0 F 79 21 140/86 100 08/20/19 18:44 08/20/19 19:15 08/20/19 19:15 08/20/19 19:15 08/20/19 19:15 General appearance: Present: mild distress - EENT Eyes: Present: PERRL ENT: hearing intact, clear oral mucosa - Neck Neck: Present: supple, normal ROM - Respiratory Respiratory effort: normal Respiratory: bilateral: CTA - Cardiovascular Heart Sounds: Present: S1 & S2. Absent: rub, click - Extremities Extremities: pulses symmetrical, No edema Peripheral Pulses: within normal limits - Abdominal General gastrointestinal: Present: soft, non-tender, non-distended, normal bowel sounds Male genitourinary: Present: normal - Integumentary Integumentary: Present: clear, warm, dry - Musculoskeletal Musculoskeletal: gait normal, strength equal bilaterally - Psychiatric Psychiatric: appropriate mood/affect, intact judgment & insight - Neurologic Neurologic: CNII-XII intact, moves all extremities Results - Labs CBC & Chem 7: 08/20/19 19:03 08/20/19 19:03 Labs: Abnormal lab results 08/20/19 08/20/19 08/20/19 Range/Units 18:46 19:03 19:03 RBC 5.52 H (3.65-5.03) M/mm3 Hgb 15.6 H (11.8-15.2) gm/dl Hct 48.0 H (35.5-45.6) % Plt Count 132 L (140-440) K/mm3 [place] % (Auto) 10.7 H (0.0-7.3) % Thrombin Time (15.1-19.6) Sec. Carbon Dioxide 19 L (22-30) mmol/L Glucose 129 H (75-100) mg/dL POC Glucose 113 H (70-105) 08/20/19 Range/Units 19:03 RBC (3.65-5.03) M/mm3 Hgb (11.8-15.2) gm/dl Hct (35.5-45.6) % Plt Count (140-440) K/mm3 [place] % (Auto) (0.0-7.3) % Thrombin Time 19.9 H (15.1-19.6) Sec. Carbon Dioxide (22-30) mmol/L Glucose (75-100) mg/dL POC Glucose (70-105) Assessment and Plan - Patient Problems (1) CVA (cerebral vascular accident) Current Visit: Yes Status: Acute Qualifiers: Laterality of affected vessel: unspecified Plan to address problem: CVA Protocol: CT head, Neuro check, PT/OT/Speech therapy, Echo, carotid doppler, antiplatelet therapy, lipid panel, statin therapy, further testing as per neurology team. (2) HTN (hypertension) Current Visit: Yes Status: Acute Qualifiers: Hypertension type: essential hypertension Qualified Code(s): I10 - Essential (primary) hypertension Plan to address problem: monitor bp q shift, permissive hypertension overnight. (3) Obesity Current Visit: Yes Status: Acute Qualifiers: Body mass index: BMI 30.0-30.9 Plan to address problem: balanced diet, increased physical activity at discharge, supportive care. (4) DVT prophylaxis Current Visit: Yes Status: Acute Plan to address problem: SCD to ble while in bed, Pt ambulatory
[2019-08-21] MEDS: PRAVASTATIN 80 MG TAB PO SCH ×2 (02:33→21:51)
[2019-08-21] MEDS: ACETAMINOPHEN 325 MG TAB PO PRN ×2 (02:33→13:33)
[2019-08-21 07:57] LABS: Chol/HDL Ratio 3.33 %
[2019-08-21] MEDS ORDERED: ASPIRIN 325 MG TAB PO SCH (10:00)
[2019-08-21] MEDS ORDERED: NON-FORMULARY EACH (Simvastatin [Simvastatin] 40 MG) PO SCH (10:00)
--- NOTE | 2019-08-21 10:54 | Magnetic Resonance Report ---
MRI BRAIN 08/21/2019 INDICATION / CLINICAL INFORMATION: CVA. TECHNIQUE: Multiplanar, multisequence MR images of the brain were obtained. COMPARISON: CT brain 08/20/2019 FINDINGS: BRAIN / INTRACRANIAL CONTENTS: Unenhanced MR images of the brain were obtained. There is a punctate focus of restricted diffusion in the left central sulcus (diffusion weighted imag e 29). An additional date focus of increased diffusion weighted signal is present in the right occipi casey lobe and left cerebellar cortex. Extensive chronic brainstem ischemic changes are present, with patchy areas of signal change in the p ons and lower left midbrain. There is evidence of hemosiderin deposition associated with the chronic left midbrain infarct, suggesting prior hemorrhagic change.. An old right posterior temporal occipita l cortical infarct is also noted, also associated with some hemosiderin deposition.. Ventricles and sulci are somewhat prominent in size, consistent with diffuse cerebral atrophy. There is no evidence of hemorrhage or mass. There are no abnormal extra-axial fluid collections. EXTRACRANIAL: Unremarkable CRANIOCERVICAL JUNCTION: No significant abnormality. VASCULAR FLOW-VOIDS: No significant abnormality. IMPRESSION: 1. 3 punctate foci of increased diffusion weighted signal as detailed above. 2. Chronic ischemic changes, with evidence of prior brainstem ischemic injury and hemorrhage. Signer Name: Russel Reynaga MD Signed: 08/21/2019 10:49 AM Workstation Name: [employer]
--- NOTE | 2019-08-21 10:56 | Magnetic Resonance Report ---
MRA HEAD 08/21/2019 INDICATION / CLINICAL INFORMATION: CVA. TECHNIQUE: Routine MRA of the head is performed. 3-D/MIP reformats postprocessed. COMPARISON: None available. FINDINGS: MRA HEAD: Intracranial internal carotid arteries: No significant abnormality. Anterior cerebral arteries: No significant abnormality. Middle cerebral arteries: No significant abnormality. Posterior circulation: The vertebrobasilar system is relatively hypoplastic on a developmental basis. The right vertebral artery appears to end at the level of the posterior inferior cerebellar artery, normal variant. Prominent posterior to indicating arteries are present. Signer Name: Russel Reynaga MD Signed: 08/21/2019 10:51 AM Workstation Name: [email or web address] ([employer])[id number]
--- NOTE | 2019-08-21 11:41 | Vascular Lab Report ---
"DUPLEX DOPPLER ULTRASOUND CAROTID, BILATERAL INDICATION: stroke. FINDINGS: RIGHT CAROTID: Mild atherosclerotic plaque. Right CCA velocity: 98 cm/sec. Right ICA peak systolic velocity: 70 cm/sec. ICA/CCA PSV Ratio: 1.1. Right Vertebral Artery: Antegrade flow. LEFT CAROTID: Mild atherosclerotic plaque Left CCA velocity: 88 cm/sec. Left ICA peak systolic velocity: 59 cm/sec. ICA/CCA PSV Ratio: 0.9. Left Vertebral Artery: Antegrade flow. IMPRESSION: 1. Right Internal Carotid Artery: Less than 50% diameter stenosis. 2. Left Internal Carotid Artery: Less than 50% diameter stenosis. Velocity criteria are extrapolated from diameter data as defined by the Society of Radiologists in Ul trasound Consensus Conference, Radiology 2003; 229;340-346. Degree of Stenosis (%) || ICA PSV (cm/sec) || Plaque estimate (%) || ICA/CCA PSV Ratio Normal <125 None <2.0 <50 <125 <50 <2.0 50-69 125-230 50 2.0-4.0 70 but less than 100 >230 50 >4.0 Near occlusion High, low, or none visible variable Total occlusion None visible; no lumen N/A Signer Name: Jonathon Gilman MD Signed: 08/21/2019 11:36 AM Workstation Name: [email or web address]"
[2019-08-21] MEDS: amLODIPine 10 MG TAB PO SCH (13:34)
[2019-08-21] MEDS: ASPIRIN 81 MG TAB CHEW PO SCH (13:34)
[2019-08-21] MEDS: LISINOPRIL 20 MG TAB PO SCH (13:35)
--- NOTE | 2019-08-21 18:05 | Consultation ---
History of Present Illness Consult date: 08/21/19 Chief complaint: weakness History of present illness: This is a 53 YO M with Past History Past Medical History: other (see HPI) Past Surgical History: Other (PEG) Social history: single. denies: smoking, alcohol abuse, prescription drug abuse Family history: hypertension Medications and Allergies Allergies Allergy/AdvReac Type Severity Reaction Status Date / Time No Known Allergies Allergy Verified 04/10/19 11:23 Home Medications Medication Instructions Recorded Confirmed Last Taken Type Aspirin [Aspirin BABY CHEW TAB] 81 mg PO QDAY 30 Days #30 tab.chew 02/03/19 08/20/19 1 Day Ago Rx ~08/19/19 Lisinopril [Zestril TAB] 20 mg PO QDAY #30 tablet 04/10/19 08/20/19 1 Day Ago Rx ~08/19/19 Simvastatin 40 mg PO QDAY #30 tablet 04/10/19 08/20/19 1 Day Ago Rx ~08/19/19 amLODIPine 10 mg PO DAILY #30 tab 04/10/19 1 Day Ago Rx ~08/19/19 Aspirin [Aspirin BABY CHEW TAB] 81 mg PO QDAY #30 tab.chew 06/03/19 08/20/19 1 Day Ago Rx ~08/19/19 Lisinopril [Zestril TAB] 20 mg PO QDAY #30 tablet 06/03/19 08/20/19 1 Day Ago Rx ~08/19/19 Simvastatin 40 mg PO QHS #30 tablet 06/03/19 08/20/19 1 Day Ago Rx ~08/19/19 amLODIPine [Norvasc] 10 mg PO DAILY #30 tab 06/03/19 08/20/19 1 Day Ago Rx ~08/19/19 Active Meds: Active Medications Acetaminophen (Tylenol) 650 mg PO Q4H PRN PRN Reason: Pain, Mild (1-3) Last Admin: 08/21/19 13:33 Dose: 650 mg Documented by: Albuterol (Proventil) 2.5 mg IH Q3HRT PRN PRN Reason: Shortness Of Breath Amlodipine Besylate (Amlodipine) 10 mg PO DAILY [facility] Last Admin: 08/21/19 13:34 Dose: 10 mg Documented by: Aspirin (Baby Aspirin) 81 mg PO QDAY [facility] Last Admin: 08/21/19 13:34 Dose: 81 mg Documented by: Bisacodyl (Dulcolax) 10 mg MA QDAY PRN PRN Reason: Constipation Lisinopril (Zestril) 20 mg PO QDAY [facility] Last Admin: 08/21/19 13:35 Dose: 20 mg Documented by: Magnesium Hydroxide (Milk Of Magnesia) 30 ml PO Q4H PRN PRN Reason: Constipation Metoclopramide HCl (Reglan) 10 mg PO Q6H PRN PRN Reason: Nausea And Vomiting Ondansetron HCl (Zofran) 4 mg IV Q8H PRN PRN Reason: Nausea And Vomiting Pravastatin Sodium (Pravachol) 80 mg PO QHS [facility] Last Admin: 08/21/19 02:33 Dose: 80 mg Documented by: Promethazine HCl (Phenergan) 25 mg MA Q6H PRN PRN Reason: Nausea And Vomiting Sodium Chloride (Sodium Chloride Flush Syringe 10 Ml) 10 ml IV PRN PRN PRN Reason: LINE FLUSH Physical Examination - Vital Signs Vital Signs: Vital Signs Temp Pulse Resp BP Pulse Ox 98.0 F 88 16 158/97 97 08/20/19 18:44 08/20/19 18:44 08/20/19 18:44 08/20/19 18:44 08/20/19 18:44 Results - Laboratory Findings CBC and BMP: 08/20/19 19:03 08/20/19 19:03 Abnormal Lab Findings: Abnormal Labs 08/20/19 08/20/19 08/20/19 18:46 19:03 19:03 RBC 5.52 H Hgb 15.6 H Hct 48.0 H Plt Count 132 L [place] % (Auto) 10.7 H Thrombin Time Carbon Dioxide 19 L Glucose 129 H POC Glucose 113 H HDL Cholesterol 08/20/19 08/21/19 19:03 06:40 RBC Hgb Hct Plt Count [place] % (Auto) Thrombin Time 19.9 H Carbon Dioxide Glucose POC Glucose HDL Cholesterol 33 L
--- NOTE | 2019-08-21 18:15 | Consultation ---
History of Present Illness Consult date: 08/21/19 Chief complaint: weakness History of present illness: This is a 53 YO M with weakness who has been found to have acute punctate bilateral strokes. PT has had strokes int he past and takes aspirin 81 mg. Says his symptoms have resolved and he is back to baseline. Also takes simvastatin. No chest pain or heart fluttering noted. Past History Past Medical History: hypertension, hyperlipidemia, stroke, other (see HPI) Past Surgical History: Other (PEG) Social history: single. denies: smoking, alcohol abuse, prescription drug abuse Family history: hypertension Medications and Allergies Allergies Allergy/AdvReac Type Severity Reaction Status Date / Time No Known Allergies Allergy Verified 04/10/19 11:23 Home Medications Medication Instructions Recorded Confirmed Last Taken Type Aspirin [Aspirin BABY CHEW TAB] 81 mg PO QDAY 30 Days #30 tab.chew 02/03/19 08/20/19 1 Day Ago Rx ~08/19/19 Lisinopril [Zestril TAB] 20 mg PO QDAY #30 tablet 04/10/19 08/20/19 1 Day Ago Rx ~08/19/19 Simvastatin 40 mg PO QDAY #30 tablet 04/10/19 08/20/19 1 Day Ago Rx ~08/19/19 amLODIPine 10 mg PO DAILY #30 tab 04/10/19 1 Day Ago Rx ~08/19/19 Aspirin [Aspirin BABY CHEW TAB] 81 mg PO QDAY #30 tab.chew 06/03/19 08/20/19 1 Day Ago Rx ~08/19/19 Lisinopril [Zestril TAB] 20 mg PO QDAY #30 tablet 06/03/19 08/20/19 1 Day Ago Rx ~08/19/19 Simvastatin 40 mg PO QHS #30 tablet 06/03/19 08/20/19 1 Day Ago Rx ~08/19/19 amLODIPine [Norvasc] 10 mg PO DAILY #30 tab 06/03/19 08/20/19 1 Day Ago Rx ~08/19/19 Active Meds: Active Medications Acetaminophen (Tylenol) 650 mg PO Q4H PRN PRN Reason: Pain, Mild (1-3) Last Admin: 08/21/19 13:33 Dose: 650 mg Documented by: Albuterol (Proventil) 2.5 mg IH Q3HRT PRN PRN Reason: Shortness Of Breath Amlodipine Besylate (Amlodipine) 10 mg PO DAILY [facility] Last Admin: 08/21/19 13:34 Dose: 10 mg Documented by: Aspirin (Baby Aspirin) 81 mg PO QDAY [facility] Last Admin: 08/21/19 13:34 Dose: 81 mg Documented by: Bisacodyl (Dulcolax) 10 mg IA QDAY PRN PRN Reason: Constipation Lisinopril (Zestril) 20 mg PO QDAY [facility] Last Admin: 08/21/19 13:35 Dose: 20 mg Documented by: Magnesium Hydroxide (Milk Of Magnesia) 30 ml PO Q4H PRN PRN Reason: Constipation Metoclopramide HCl (Reglan) 10 mg PO Q6H PRN PRN Reason: Nausea And Vomiting Ondansetron HCl (Zofran) 4 mg IV Q8H PRN PRN Reason: Nausea And Vomiting Pravastatin Sodium (Pravachol) 80 mg PO QHS [facility] Last Admin: 08/21/19 02:33 Dose: 80 mg Documented by: Promethazine HCl (Phenergan) 25 mg IA Q6H PRN PRN Reason: Nausea And Vomiting Sodium Chloride (Sodium Chloride Flush Syringe 10 Ml) 10 ml IV PRN PRN PRN Reason: LINE FLUSH Review of Systems Neurological: weakness Physical Examination - Vital Signs Vital Signs: Vital Signs Temp Pulse Resp BP Pulse Ox 98.0 F 88 16 158/97 97 08/20/19 18:44 08/20/19 18:44 08/20/19 18:44 08/20/19 18:44 08/20/19 18:44 - Constitutional General appearance: comfortable - EENT EENT: Present: mucous membranes moist - Respiratory Respiratory: Present: lungs clear - Cardiovascular Cardiovascular: Present: regular rate Extremities: Present: no peripheral edema bilatateraly - Gastrointestinal Gastrointestinal: Present: normoactive bowel sounds - Neurologic Cranial nerve examination: PERRL, EOMI, V1/V2/V3 grossly intact, face symmetric Sensorimotor examination: intact Motor examination - right side: 5/5: biceps, triceps, wrist flexion, wrist extension, tray worker, hip flexors, knee extensors, dorsiflexion, toe extension (EHL), plantarflexion Motor examination - left side: 5/5: biceps, triceps, wrist flexion, wrist extension, tray worker, hip flexors, knee extensors, dorsiflexion, toe extension (EHL), plantarflexion - Psychiatric Psychiatric: Present: mood/affect appropriate Results - Laboratory Findings CBC and BMP: 08/20/19 19:03 08/20/19 19:03 Abnormal Lab Findings: Abnormal Labs 08/20/19 08/20/19 08/20/19 18:46 19:03 19:03 RBC 5.52 H Hgb 15.6 H Hct 48.0 H Plt Count 132 L Chambers % (Auto) 10.7 H Thrombin Time Carbon Dioxide 19 L Glucose 129 H POC Glucose 113 H HDL Cholesterol 08/20/19 08/21/19 19:03 06:40 RBC Hgb Hct Plt Count Chambers % (Auto) Thrombin Time 19.9 H Carbon Dioxide Glucose POC Glucose HDL Cholesterol 33 L - Diagnostic Findings Additional findings: MRI Brain bilateral punctate ischemia Assessment and Plan This is a 53 YO M with acute bilateral strokes, rule out embolic source MRI/A reviewed, carotids ok. Needs echo and if normal would benefit from LEA LDL just above goal, needs A1C PT/OT/ST BP ok Continue care for all medical issues as you are doing Will need n euro follow up outpatient.
--- NOTE | 2019-08-21 19:22 | Progress Note ---
Assessment and Plan Assessment and plan: --CVA (cerebral vascular accident) Current Visit: Yes Status: Acute CVA Protocol: CT head, Neuro check, PT/OT/Speech therapy, Echo, carotid doppler, antiplatelet therapy, lipid panel, statin therapy, further testing as per neurology team. --HTN (hypertension) Current Visit: Yes Status: Acute monitor bp q shift, permissive hypertension overnight. --Obesity Current Visit: Yes Status: Acute balanced diet, increased physical activity at discharge, supportive care. -- DVT prophylaxis Current Visit: Yes Status: Acute SCD to ble while in bed, Pt ambulatory Follow neutral workup Follow neurology evaluation and recommendation Physical therapy occupational therapy Case management for discharge planning Possible discharge in 1-2 days if stable History Interval history: She was admitted stroke symptoms and generalized weakness Not a candidate for TPA Patient feels slightly better Continues to have weakness Neuro workup in progress Hospitalist Physical - Constitutional Vitals: Temp Pulse Resp BP Pulse Ox 98.1 F 63 22 124/74 98 08/21/19 17:22 08/21/19 17:22 08/21/19 17:22 08/21/19 17:22 08/21/19 17:22 General appearance: Present: mild distress, well-nourished, obese - EENT Eyes: Present: PERRL, EOM intact - Neck Neck: Present: supple, normal ROM - Respiratory Respiratory effort: normal Respiratory: bilateral: diminished, negative: rales, rhonchi, wheezing - Cardiovascular Rhythm: regular Heart Sounds: Present: S1 & S2 - Extremities Extremities: no ischemia, No edema - Abdominal General gastrointestinal: soft, non-tender, non-distended, normal bowel sounds - Integumentary Integumentary: Present: clear, warm - Psychiatric Psychiatric: appropriate mood/affect, cooperative - Neurologic Neurologic: other (residual weakness) Results - Labs CBC & Chem 7: 08/20/19 19:03 08/20/19 19:03 Labs: Laboratory Last Values WBC 6.1 K/mm3 (4.5-11.0) 08/20/19 19:03 RBC 5.52 M/mm3 (3.65-5.03) H 08/20/19 19:03 Hgb 15.6 gm/dl (11.8-15.2) H 08/20/19 19:03 Hct 48.0 % (35.5-45.6) H 08/20/19 19:03 MCV 87 fl (84-94) 08/20/19 19:03 MCH 28 pg (28-32) 08/20/19 19:03 MCHC 33 % (32-34) 08/20/19 19:03 RDW 13.7 % (13.2-15.2) 08/20/19 19:03 Plt Count 132 K/mm3 (140-440) L 08/20/19 19:03 Lymph % (Auto) 28.0 % (13.4-35.0) 08/20/19 19:03 [place] % (Auto) 10.7 % (0.0-7.3) H 08/20/19 19:03 Eos % (Auto) 1.3 % (0.0-4.3) 08/20/19 19:03 Baso % (Auto) 0.4 % (0.0-1.8) 08/20/19 19:03 Lymph # 1.7 K/mm3 (1.2-5.4) 08/20/19 19:03 [place] # 0.6 K/mm3 (0.0-0.8) 08/20/19 19:03 Eos # 0.1 K/mm3 (0.0-0.4) 08/20/19 19:03 Baso # 0.0 K/mm3 (0.0-0.1) 08/20/19 19:03 Seg Neutrophils % 59.6 % (40.0-70.0) 08/20/19 19:03 Seg Neutrophils # 3.6 K/mm3 (1.8-7.7) 08/20/19 19:03 PT 14.1 Sec. (12.2-14.9) 08/20/19 19:03 INR 1.10 (0.87-1.13) 08/20/19 19:03 APTT 32.6 Sec. (24.2-36.6) 08/20/19 19:03 Thrombin Time 19.9 Sec. (15.1-19.6) H 08/20/19 19:03 Sodium 137 mmol/L (137-145) 08/20/19 19:03 Potassium 4.1 mmol/L (3.6-5.0) 08/20/19 19:03 Chloride 101.7 mmol/L (98-107) 08/20/19 19:03 Carbon Dioxide 19 mmol/L (22-30) L 08/20/19 19:03 Anion Gap 20 mmol/L 08/20/19 19:03 BUN 13 mg/dL (9-20) 08/20/19 19:03 Creatinine 1.2 mg/dL (0.8-1.5) 08/20/19 19:03 Estimated GFR > 60 ml/min 08/20/19 19:03 BUN/Creatinine Ratio 11 % 08/20/19 19:03 Glucose 129 mg/dL (75-100) H 08/20/19 19:03 POC Glucose 113 (70-105) H 08/20/19 18:46 Calcium 9.2 mg/dL (8.4-10.2) 08/20/19 19:03 Troponin T < 0.010 ng/mL (0.00-0.029) 08/20/19 19:03 Triglycerides 48 mg/dL (2-149) 08/21/19 06:40 Cholesterol 110 mg/dL (50-199) 08/21/19 06:40 LDL Cholesterol Direct 76 mg/dL (50-130) 08/21/19 06:40 HDL Cholesterol 33 mg/dL (40-59) L 08/21/19 06:40 Cholesterol/HDL Ratio 3.33 % 08/21/19 06:40 Active Medications - Current Medications Current Medications: Generic Name Dose Route Start Last Admin Trade Name Freq PRN Reason Stop Dose Admin Acetaminophen 650 mg 08/20/19 19:52 08/21/19 13:33 Tylenol PO 650 mg Q4H PRN Administration Pain, Mild (1-3) Albuterol 2.5 mg 08/20/19 19:52 Proventil IH Q3HRT PRN Shortness Of Breath Amlodipine Besylate 10 mg 08/21/19 10:00 08/21/19 13:34 Amlodipine PO 10 mg DAILY ASH Administration Aspirin 81 mg 08/21/19 10:00 08/21/19 13:34 Baby Aspirin PO 81 mg QDAY ASH Administration Bisacodyl 10 mg 08/20/19 19:52 Dulcolax [place] QDAY PRN Constipation Lisinopril 20 mg 08/21/19 10:00 08/21/19 13:35 Zestril PO 20 mg QDAY ASH Administration Magnesium Hydroxide 30 ml 08/20/19 19:52 Milk Of Magnesia PO Q4H PRN Constipation Metoclopramide HCl 10 mg 08/20/19 19:52 Reglan PO Q6H PRN Nausea And Vomiting Ondansetron HCl 4 mg 08/20/19 19:52 Zofran IV Q8H PRN Nausea And Vomiting Pravastatin Sodium 80 mg 08/20/19 22:00 08/21/19 02:33 Pravachol PO 80 mg QHS ASH Administration Promethazine HCl 25 mg 08/20/19 19:52 Phenergan [place] Q6H PRN Nausea And Vomiting Sodium Chloride 10 ml 08/20/19 19:52 Sodium Chloride Flush Syringe 10 Ml IV PRN PRN LINE FLUSH
[2019-08-22] MEDS: ASPIRIN 81 MG TAB CHEW PO SCH (09:54)
[2019-08-22] MEDS: amLODIPine 10 MG TAB PO SCH (09:54)
[2019-08-22] MEDS: LISINOPRIL 20 MG TAB PO SCH (09:55)
--- NOTE | 2019-08-22 10:16 | Progress Note ---
Assessment and Plan Assessment and plan: MRA head; no acute abnormality MRI head; 3 punctate foci of increased diffusion weighted signal Chronic ischemic changes with evidence of prior brainstem ischemic injury and hemorrhage CT head without contrast multiple small branch infarcts age indeterminate ; carotid Doppler; less than 50% stenosis Echocardiogram; EF 50-55%, no ASD or shunt Hospitalist Physical - Constitutional Vitals: Temp Pulse Resp BP Pulse Ox 98.2 F 56 L 18 114/64 96 08/22/19 05:26 08/22/19 05:26 08/22/19 05:26 08/22/19 05:26 08/22/19 05:26 General appearance: Present: mild distress Results - Labs CBC & Chem 7: 08/20/19 19:03 08/20/19 19:03 Labs: Laboratory Last Values WBC 6.1 K/mm3 (4.5-11.0) 08/20/19 19:03 RBC 5.52 M/mm3 (3.65-5.03) H 08/20/19 19:03 Hgb 15.6 gm/dl (11.8-15.2) H 08/20/19 19:03 Hct 48.0 % (35.5-45.6) H 08/20/19 19:03 MCV 87 fl (84-94) 08/20/19 19:03 MCH 28 pg (28-32) 08/20/19 19:03 MCHC 33 % (32-34) 08/20/19 19:03 RDW 13.7 % (13.2-15.2) 08/20/19 19:03 Plt Count 132 K/mm3 (140-440) L 08/20/19 19:03 Lymph % (Auto) 28.0 % (13.4-35.0) 08/20/19 19:03 [place] % (Auto) 10.7 % (0.0-7.3) H 08/20/19 19:03 Eos % (Auto) 1.3 % (0.0-4.3) 08/20/19 19:03 Baso % (Auto) 0.4 % (0.0-1.8) 08/20/19 19:03 Lymph # 1.7 K/mm3 (1.2-5.4) 08/20/19 19:03 [place] # 0.6 K/mm3 (0.0-0.8) 08/20/19 19:03 Eos # 0.1 K/mm3 (0.0-0.4) 08/20/19 19:03 Baso # 0.0 K/mm3 (0.0-0.1) 08/20/19 19:03 Seg Neutrophils % 59.6 % (40.0-70.0) 08/20/19 19:03 Seg Neutrophils # 3.6 K/mm3 (1.8-7.7) 08/20/19 19:03 PT 14.1 Sec. (12.2-14.9) 08/20/19 19:03 INR 1.10 (0.87-1.13) 08/20/19 19:03 APTT 32.6 Sec. (24.2-36.6) 08/20/19 19:03 Thrombin Time 19.9 Sec. (15.1-19.6) H 08/20/19 19:03 Sodium 137 mmol/L (137-145) 08/20/19 19:03 Potassium 4.1 mmol/L (3.6-5.0) 08/20/19 19:03 Chloride 101.7 mmol/L (98-107) 08/20/19 19:03 Carbon Dioxide 19 mmol/L (22-30) L 08/20/19 19:03 Anion Gap 20 mmol/L 08/20/19 19:03 BUN 13 mg/dL (9-20) 08/20/19 19:03 Creatinine 1.2 mg/dL (0.8-1.5) 08/20/19 19:03 Estimated GFR > 60 ml/min 08/20/19 19:03 BUN/Creatinine Ratio 11 % 08/20/19 19:03 Glucose 129 mg/dL (75-100) H 08/20/19 19:03 POC Glucose 113 (70-105) H 08/20/19 18:46 Hemoglobin A1c 6.6 % (4-6) H 08/21/19 19:23 Calcium 9.2 mg/dL (8.4-10.2) 08/20/19 19:03 Troponin T < 0.010 ng/mL (0.00-0.029) 08/20/19 19:03 Triglycerides 48 mg/dL (2-149) 08/21/19 06:40 Cholesterol 110 mg/dL (50-199) 08/21/19 06:40 LDL Cholesterol Direct 76 mg/dL (50-130) 08/21/19 06:40 HDL Cholesterol 33 mg/dL (40-59) L 08/21/19 06:40 Cholesterol/HDL Ratio 3.33 % 08/21/19 06:40 Active Medications - Current Medications Current Medications: Generic Name Dose Route Start Last Admin Trade Name Freq PRN Reason Stop Dose Admin Acetaminophen 650 mg 08/20/19 19:52 08/21/19 13:33 Tylenol PO 650 mg Q4H PRN Administration Pain, Mild (1-3) Albuterol 2.5 mg 08/20/19 19:52 Proventil IH Q3HRT PRN Shortness Of Breath Amlodipine Besylate 10 mg 08/21/19 10:00 08/22/19 09:54 Amlodipine PO 10 mg DAILY ASH Administration Aspirin 81 mg 08/21/19 10:00 08/22/19 09:54 Baby Aspirin PO 81 mg QDAY ASH Administration Bisacodyl 10 mg 08/20/19 19:52 Dulcolax NM QDAY PRN Constipation Lisinopril 20 mg 08/21/19 10:00 08/22/19 09:55 Zestril PO 20 mg QDAY ASH Administration Magnesium Hydroxide 30 ml 08/20/19 19:52 Milk Of Magnesia PO Q4H PRN Constipation Metoclopramide HCl 10 mg 08/20/19 19:52 Reglan PO Q6H PRN Nausea And Vomiting Ondansetron HCl 4 mg 08/20/19 19:52 Zofran IV Q8H PRN Nausea And Vomiting Pravastatin Sodium 80 mg 08/20/19 22:00 08/21/19 21:51 Pravachol PO 80 mg QHS ASH Administration Promethazine HCl 25 mg 08/20/19 19:52 Phenergan NM Q6H PRN Nausea And Vomiting Sodium Chloride 10 ml 08/20/19 19:52 08/22/19 09:55 Sodium Chloride Flush Syringe 10 Ml IV 10 ml PRN PRN Administration LINE FLUSH
[2019-08-22 12:28] VITALS: BP 137/81
--- NOTE | 2019-08-22 13:24 | Discharge Summary ---
Providers - Providers Date of Admission: 08/21/19 09:33 Date of discharge: 08/22/19 Attending physician: LUIS MARCUM 08/20/19 Consult to Physician [CONS] Routine Comment: Consulting Provider: RADHA PARISH Physician Instructions: Reason For Exam: cva 08/20/19 19:52 Occupational Therapy Evaluate and Treat [CONS] Routine Comment: Reason For Exam: Neuro deficits Physical Therapy Evaluation and Treat [CONS] Routine Comment: Reason For Exam: Neuro deficits 08/20/19 19:53 Speech Therapy Evaluation and Treat [CONS] Routine Reason For Exam: swallow eval Primary care physician: PILOT PLANT TECHNICIAN Hospitalization Reason for admission: generalized weakness/stroke like symptoms Condition: Fair Pertinent studies: MRA head; no acute abnormality MRI head; 3 punctate foci of increased diffusion weighted signal Chronic ischemic changes with evidence of prior brainstem ischemic injury and hemorrhage CT head without contrast multiple small branch infarcts age indeterminate carotid Doppler; less than 50% stenosis Echocardiogram; EF 50-55%, no ASD or shunt Hospital course: 53-year-old male patient with significant history of hypertension acute CVA with left-sided hemiparesis was admitted through emergency room with generalized weakness possible stroke, patient was not a candidate for TPA Patient underwent extensive neurological workup, evaluation by urologist MRI of the T punctate foci of increased diffusion weighted signal chronic ischemic changes evidence of prior brainstem ischemia injury. Patient was symptomatically managed evaluation by microfilm equipment inspector medications optimized Physical therapy occupational therapy, no need for physical therapy Today patient is comfortable in no new complaints vital signs physical examination unremarkable Cleared by neurology for discharge and follow-up as outpatient for scheduled patient is hemodynamically and clinically stable at discharge. Discharge diagnosis: --CVA (cerebral vascular accident) Current Visit: Yes Status: Acute CVA workup as mentioned above Physical therapy occupational therapy, no PT needs Neurology evaluated, cleared for discharge --HTN (hypertension) Current Visit: Yes Status: Acute Stable --Obesity Current Visit: Yes Status: Acute Advised weight reduction when medically stable -- DVT prophylaxis Current Visit: Yes Status: Acute SCD to ble while in bed, Pt ambulatory Stable at discharge Disposition: DC-01 TO HOME OR SELFCARE Time spent for discharge: 32 min Core Measure Documentation - Palliative Care Palliative Care/ Comfort Measures: Not Applicable - Core Measures Any of the following diagnoses?: none Exam - Constitutional Vitals: Temp Pulse Resp BP Pulse Ox 97.5 F L 71 20 137/81 99 08/22/19 11:11 08/22/19 11:11 08/22/19 11:11 08/22/19 11:11 08/22/19 11:11 Plan Activity: advance as tolerated Diet: low fat, low salt Additional Instructions: Advised to see private neurologist in 1 week Follow up with: PRIMARY MD VERN [Primary Care Provider] - 7 Days HARMAN LEUNG MD [Staff Physician] - 7 Days Prescriptions: amLODIPine 10 mg PO DAILY #30 tab Aspirin [Aspirin BABY CHEW TAB] 81 mg PO QDAY 30 Days #30 tab.chew Docusate Sodium [Colace] 100 mg PO BID PRN #20 capsule PRN Reason: Constipation Simvastatin 40 mg PO QDAY #30 tablet Lisinopril [Zestril TAB] 20 mg PO QDAY #30 tablet
== END 2019-08-22 15:23 | disposition home or self-care (01) | DRG 65 ==
LOC: ED 18:29 → 3A 19:52 → OBSVTOIN 08-21 09:33
PROVIDERS: ADMIT Internal Medicine; ATTEND Internal Medicine
DX: I63.9 Cerebral infarction, unspecified (principal); G81.94 Hemiplegia, unspecified affecting left nondominant side; I10 Essential (primary) hypertension; E66.9 Obesity, unspecified; R47.81 Slurred speech; Z82.49 Family history of ischemic heart disease and other diseases of the circulatory system; Z79.82 Long term (current) use of aspirin; Z79.899 Other long term (current) drug therapy; Z86.711 Personal history of pulmonary embolism; Z93.1 Gastrostomy status; Z68.30 Body mass index [BMI] 30.0-30.9, adult
CPT/HCPCS: 36415; 70450; 70544; 70551; 80048; 80061; 82962; 83036; 84484; 85025; 85610; 85670; 85730; 93005; 93010; 93306; 93880; 94640; G0378; A9270-GY

== ENCOUNTER 2019-10-07 13:25 | Emergency (ER) | payer MEDICARE ==
[2019-10-07 21:08] VITALS: BP 138/85
--- NOTE | 2019-10-07 21:13 | Emergency Department Report ---
Chief Complaint: Medical Clearance Stated Complaint: MED REFILL Time Seen by Provider: 10/07/19 21:05 - HPI History of Present Illness: This is a 53 y.o. M. that presents to the ER for medication refills. PMH of HTN, HLD, CVA no deficits. Patient states he is in between primary care doctors. Denies chest pain, SOB, headache, palpitations, weakness, dizziness, nausea, or vomiting. - ROS Review of Systems: General: Medication refills. - Exam Vital Signs: Vital Signs 10/07/19 13:29 Temperature 97.9 F Pulse Rate 62 Respiratory 18 Rate Blood Pressure 129/72 O2 Sat by Pulse 98 Oximetry Physical Exam: Vital signs stable General: Patient is well nourished, well developed, awake and alert, resting comfortably in no acute distress Neck: Normal range of motion Respiratory: Patient is in no respiratory distress, lungs CTAB Cardiovascular: Patient is not tachycardic, RRR without murmur appreciated Extremities: pulses intact with good cap refills, no LE pitting edema or calf tenderness Neuro: The patient is alert and oriented to person, place, and time, appropriately conversive, with 5/5 bilat UE/LE strength, no gross motor or sen dirk defects noted. Coordination appears to be adequate. Skin: Warm, dry, and intact MSE screening note: Focused history and physical exam performed. Due to findings the following was ordered: ED Medical Decision Making - Medical Decision Making Patient presents to the emergency department requesting refills for medication. Patient is otherwise asymptomatic without confusion, chest pain, hematuria, or SOB. BP today is 129/72. Patient ran out of medication 1 month ago and between PCP at this time. Doubt CV, AMI, heart failure, renal infarction or failure or other end organ damage. Discussed with patient importance of follow up with a primary care doctor for management of their hypertension and hyperlipidemia. Provided a prescription for the patients previous antihypertensive medication and hyperlipidemia medication. Follow up in a primary care clinic in the next week. Patient discharged home stable. ED Disposition for MSE Clinical Impression: Encounter for medication refill Disposition: - TO HOME OR SELFCARE Is pt being admited?: No Condition: Stable Instructions: Hypertension (ED) Additional Instructions: Follow up with a primary care doctor from the list provided for further refills. Return to the ER if you start to experience chest pain, palpitations, shortness of breath, headache, slurred speech, or weakness. Prescriptions: amLODIPine 10 mg PO DAILY #30 tab Simvastatin 40 mg PO QDAY #30 tablet lisinopriL [Zestril TAB] 20 mg PO QDAY #30 tablet Referrals: JEROME WELLINGTON MD [Primary Care Provider] - 3-5 Days Time of Disposition: 21:15
== END 2019-10-07 21:20 | disposition home or self-care (01) ==
LOC: ED 13:25
DX: I10 Essential (primary) hypertension (principal); Z76.0 Encounter for issue of repeat prescription
CPT/HCPCS: 99282

== ENCOUNTER 2020-02-03 09:26 | Emergency (ER) | payer MEDICARE ==
[2020-02-03 09:32] VITALS: BP 167/93
--- NOTE | 2020-02-03 10:05 | Emergency Department Report ---
Chief Complaint: Nausea/Vomiting/Diarrhea Stated Complaint: VERTIGO/MED REFILL - HPI History of Present Illness: 54-year-old well-nourished no acute distress male presents to the emergency room stating that he had vomit on Saturday felt feverish on Saturday and off balance on Saturday. Patient states he feels much better. Patient is here to get refills on his chronic medications of his blood pressure pills. Review of chart shows that patient here multiple times for the same complaint of medications refills. In review of chart patient has been referred to several different community providers to have his chronic diseases to be managed. - Exam Vital Signs: Vital Signs 02/03/20 09:30 Temperature 98.2 F Pulse Rate 71 Respiratory 20 Rate Blood Pressure 167/93 O2 Sat by Pulse 98 Oximetry Physical Exam: Gen: alert oriented NAD Cardic: regular rate and rhythm no murmurs appreciated Resp: Clear to auscultation bilateral no wheezing no rales or rhonchi. Abdomen: Soft nontender nondistended normal bowel sounds. Mini neuro: Normal finger to nose exam, [id number] normal, Romberg neg, strengh 4/5 all extrimities, Alert and oriented time 3 Crainal nerve [id number] intact MSE screening note: Focused history and physical exam performed. Due to findings the following was ordered: 54-year-old well-nourished no acute distress male presents to the emergency room stating that he had vomit on Saturday felt feverish on Saturday and off balance on Saturday. Patient states he feels much better. Patient is here to get refills on his chronic medications of his blood pressure pills. Review of chart shows that patient here multiple times for the same complaint of medications refills. In review of chart patient has been referred to several different community providers to have his chronic diseases to be managed.. Discussed with patient that all his symptoms have resolved within the last 5 days. Discussed with patient he needs to follow-up with a primary care provider I will list several community providers for his convenience. ED Disposition for MSE Clinical Impression: Noncompliance with medication regimen, Hypertension Disposition: MED SCREENING EXAM-LEFT Is pt being admited?: No Does the pt Need Aspirin: No Condition: Stable Instructions: Hypertension (ED) Additional Instructions: Recommend to follow-up with a primary care doctor I have listed several below f or your convenience. The emergency room is for emergencies only. You will need to continue with your medication refills at a primary care clinic not the ER. Referrals: [facility] [Outside] - 3-5 Days [facility] [Outside] - 3-5 Days [facility] [Provider Group] - 3-5 Days
== END 2020-02-03 10:04 | disposition left against medical advice (07) ==
LOC: ED 09:26
DX: I10 Essential (primary) hypertension (principal); R11.10 Vomiting, unspecified; R50.9 Fever, unspecified; Z91.14 Patient's other noncompliance with medication regimen
CPT/HCPCS: 99281

== ENCOUNTER 2020-02-16 10:06 | Outpatient (CLI) | payer MEDICARE ==
[2020-02-16 10:38] LABS: Basophils % (Auto) 0.7 % (0.0-1.8); Eosinophils # (Auto) 0.1 K/mm3 (0.0-0.4); Eosinophils % (Auto) 1.5 % (0.0-4.3); Hemoglobin 15.6 gm/dl (11.8-15.2); Lymphocytes # (Auto) 1.6 K/mm3 (1.2-5.4); Mean Corpuscular HGB Conc 33 % (32-34); Mean Corpuscular Volume 85 fl (84-94); Monocytes # (Auto) 0.6 K/mm3 (0.0-0.8); Monocytes % (Auto) 9.7 % (0.0-7.3); Platelet Count 141 K/mm3 (140-440); Red Blood Count 5.56 M/mm3 (3.65-5.03); Red Cell Distribution Width 13.7 % (13.2-15.2)
[2020-02-16 11:08] LABS: Alanine Aminotransferase 38 units/L (7-56); Albumin 4.3 g/dL (3.9-5); BUN/Creatinine Ratio 9; Blood Urea Nitrogen 12 mg/dL (9-20); Calcium 9.4 mg/dL (8.4-10.2); Chol/HDL Ratio 3.22 %; HDL Cholesterol 44 mg/dL (40-59); Hemolysis Index 1; LDL Cholesterol,Direct 90 mg/dL (50-130)
[2020-02-19 07:59] LABS: Vitamin D, 25-OH, D2 <4 ng/mL
== END 2020-02-16 10:07 | disposition home or self-care (01) ==
LOC: LAB 10:06
PROVIDERS: ATTEND Internal Medicine
DX: Z12.5 Encounter for screening for malignant neoplasm of prostate (principal); Z13.29 Encounter for screening for other suspected endocrine disorder; E78.5 Hyperlipidemia, unspecified; I10 Essential (primary) hypertension; R73.9 Hyperglycemia, unspecified; R53.83 Other fatigue; R42 Dizziness and giddiness
CPT/HCPCS: 36415; 80053; 80061; 82306; 82607; 83036; 84153; 84443; 85025

== ENCOUNTER 2020-02-26 11:22 | Inpatient (IN) | payer MEDICARE ==
--- NOTE | 2020-02-26 11:13 | Cat Scan Report ---
CT head without contrast INDICATION : MAIN: WEAKNESS. R53.1 H/S, LEFT ARM WEAKNESS, EPISODE ONE WEAK AGO LEFT ARM STILL WEAK . TECHNIQUE: Axial imaging performed from the skull apex through the skull base without the use of con trast. All CT scans at this location are performed using CT dose reduction for ALARA by means of aut omated exposure control. COMPARISON: MRI of the brain from 08/21/[address] head from 08/20/2019 FINDINGS: Parenchyma: There is a large subacute-appearing infarct in the right MCA distribution involving prim arily the parietal lobe. There is no significant vasogenic edema or midline shift. There is also no s ignificant ventricular effacement. An old right posterior parietal infarct is again present. No acute hemorrhage identified. Ventricles: Ventricles are normal in size and appear symmetric. Soft tissues: Soft tissues including the orbits appear normal. Bones: No acute osseous abnormality. Sinuses: Sinuses and mastoid air cells are clear. IMPRESSION: Large subacute-appearing infarct in the right MCA distribution as detailed above. COMMUNICATION: Time of Communication (LINER MACHINE OPERATOR/CDT): 10:02 AM Licensed Practitioner Receiving Report: Dr. Hirsch Signer Name: Heladio Spivey MD Signed: 02/26/2020 11:08 AM Workstation Name: [id number]
--- NOTE | 2020-02-26 11:49 | Emergency Department Report ---
HPI - General Time Seen by Provider: 02/26/20 11:32 - HPI HPI: 54-year-old -[place] male presents to the emergency department from outpatient CT with the findings of a subacute CVA in the right MCA distribution. Patient says that he was walking down the street 2 to 3 days ago when he started having some numbness and weakness in his left hand and arm, as well as a headache to the middle of his forehead. He also complains of some intermittent right eye blurriness. He has a past medical history of hypertension, hyperlipidemia, previous CVA without residual deficits. The patient went to see his primary care physician, Dr. Singh, who sent him for outpatient CT secondary to the a forementioned symptoms. Patient is not a tobacco smoker and denies any illicit drug use. He has taken some aspirin in the past for his headache. ED Past Medical Hx - Past Medical History Hx Hypertension: Yes Hx CVA: Yes (L side deficits x 2) Hx Congestive Heart Failure: No Hx Diabetes: No Hx Pulmonary Embolism: Yes Hx Liver Disease: No Hx Renal Disease: No Hx Sickle Cell Disease: No Hx Seizures: No Hx Asthma: No Hx COPD: No Hx Dementia: No Hx HIV: No - Surgical History Additional Surgical History: Peg tube placement - Social History Smoking Status: Never Smoker - Medications Home Medications: Home Medications Medication Instructions Recorded Confirmed Last Taken Type Aspirin [Aspirin BABY CHEW TAB] 81 mg PO QDAY 30 Days #30 tab.chew 08/22/19 Unknown Rx Docusate Sodium [Colace] 100 mg PO BID PRN #20 capsule 08/22/19 Unknown Rx Simvastatin 40 mg PO QDAY #30 tablet 10/07/19 Unknown Rx amLODIPine 10 mg PO DAILY #30 tab 10/07/19 Unknown Rx lisinopriL [Zestril TAB] 20 mg PO QDAY #30 tablet 10/07/19 Unknown Rx ED Review of Systems ROS: Stated complaint: Other details as noted in HPI Comment: All other systems reviewed and negative Constitutional: denies: chills, fever Eyes: denies: eye pain, vision change ENT: denies: ear pain, throat pain Respiratory: denies: cough, shortness of breath Cardiovascular: denies: chest pain, palpitations Gastrointestinal: denies: abdominal pain, vomiting Genitourinary: denies: dysuria, discharge Musculoskeletal: denies: back pain, arthralgia Skin: denies: rash, lesions Neurological: headache, weakness, numbness Physical Exam - Physical Exam Physical Exam: GENERAL: The patient is well-developed well-nourished. HENT: Normocephalic. Atraumatic. Patient has moist mucous membranes. EYES: Extraocular motions are intact. Pupils equal reactive to light bilaterally. NECK: Supple. Trachea is midline. CHEST/LUNGS: Clear to auscultation. There is no respiratory distress noted. HEART/CARDIOVASCULAR: Regular. There is no tachycardia. There is no murmur. ABDOMEN: Abdomen is soft, nontender. Patient has normal bowel sounds. There is no abdominal distention. SKIN: Skin is warm and dry. NEURO: The patient is awake, alert, and oriented. The patient is cooperative. Cranial nerves II through XII grossly intact. There is +4/5 muscle strength to the left upper and lower extremities with a drift that does not hit the gurney. +5/5 muscle strength to the right upper and lower extremities. Normal speech. No facial asymmetry. No dysmetria. MUSCULOSKELETAL: There is no tenderness or deformity. There is no evidence of acute injury. ED Medical Decision Making - Lab Data Result diagrams: 02/26/20 12:24 02/26/20 12:24 - EKG Data -: EKG Interpreted by Ia EKG shows normal: sinus rhythm, axis, intervals, QRS complexes, ST-T waves Rate: normal - EKG Data When compared to previous EKG there are: previous EKG unavailable Interpretation: normal EKG - Radiology Data Radiology results: report reviewed CT head without contrast INDICATION : MAIN: WEAKNESS. R53.1 H/S, LEFT ARM WEAKNESS, EPISODE ONE WEAK AGO LEFT ARM STILL WEAK. TECHNIQUE: Axial imaging performed from the skull apex through the skull base without the use of contrast. All CT scans at this location are performed using CT dose reduction for ALARA by means of automated exposure control. COMPARISON: MRI of the brain from 08/21/[address] head from 08/20/2019 FINDINGS: Parenchyma: There is a large subacute-appearing infarct in the right MCA distribution involving primarily the parietal lobe. There is no significant vasogenic edema or midline shift. There is also no significant ventricular effacement. An old right posterior parietal infarct is again present. No acute hemorrhage identified. Ventricles: Ventricles are normal in size and appear symmetric. Soft tissues: Soft tissues including the orbits appear normal. Bones: No acute osseous abnormality. Sinuses: Sinuses and mastoid air cells are clear. IMPRESSION: Large subacute-appearing infarct in the right MCA distribution as detailed above. - Medical Decision Making This patient presents to the emergency department with the complaint of some left-sided weakness and numbness, and headache, and some intermittent right eye blurriness that is been going on for the past few days. Initially he was sent by his PCP for an outpatient CT that resulted showing an ischemic CVA in the right MCA distribution. Patient's labs have been unremarkable. He was seen by telemedicine neurology who has recommended inpatient admission, MRI, echocardiogram. The patient has been accepted for admission by the hospitalist, Dr Haile. Critical Care Time: Yes Critical care time in (mins) excluding proc time.: 35 Critical care attestation.: If time is entered above; I have spent that time in minutes in the direct care of this critically ill patient, excluding procedure time. Due to the immediate potential for life-threatening deterioration due to underlying neurologic condition, I spent 35 minutes of critical care time with the patient. Critical Care Time: 35 minutes ED Disposition Clinical Impression: Acute CVA (cerebrovascular accident) Disposition: [id number] OP ADMIT IP TO THIS HOSP Is pt being admited?: Yes Condition: Serious Time of Disposition: 13:36 - Assessment Assessment Interval: 24 hours post onset of symptoms +-20 minutes - Level of Consciousness 1a. Level of Consciousness: alert/keenly responsive - LOC Questions 1b. LOC Questions: answers both correctly - LOC Command 1c. LOC Commands: performs tasks correctly - Best Gaze 2. Best Gaze: normal - Visual 3. Visual: no visual loss - Facial Palsy 4. Facial Palsy: normal symmetrical movement - Motor Arm 5a. Motor Arm Left: drift 5b. Motor Arm Right: no drift - Motor Leg 6a. Motor Leg Left: drift 6b. Motor Leg Right: no drift - Limb Ataxia 7. Limb Ataxia: absent - Sensory 8. Sensory: mild/moderate sensory loss - Best Language 9. Best Language: no aphasia - Dysarthria 10. Dysarthria: normal - Extinction and Inattention 11. Extinction/Inattention: no abnormality - Scoring Total Score: 3 Stroke Severity: Minor Stroke
--- NOTE | 2020-02-26 12:32 | Consultation ---
History of Present Illness - Reason for Consult Consult date: 02/26/20 stroke - History of Present Illness Date:02/26/20 [facility] Impression: R MCA stroke - r/o cardioembolism r/o artery to artery embolism Recommendations: TTE eval lvfx - if neg, LEA r/o cardiac thrombus and if neg loop recorder r/o afib MRI brain w/o mary kate MRA brain w/o contrast; MRA brain and neck w/o contrast pt/ot/st swallowing evaluation statin fasting lipid panel asa 325mg x 1 now - suspected aspirin failure - plavix 75mg q daily inpatient neurology consult CC: stroke HPI: 54yo M w hx of htn, hld and hx of stroke x 2 (2013 and 2014) on asa w/o residual p/w 2 week of L arm numbness, R eye blurry vision, 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 He had headache 2 weeks ago and nausea and acute onset of symptoms but did not seek acute care and went to see his pmd in follow up today who asked him to come ot the ER. Diagnostic Testing: hct subacte R mca infarct/ old R posterior parietal stroke Vital Signs: Exam: Mental Status: Awake, alert, oriented Naming: Intact Repetition: Intact Speech: fluent Cranial Nerves: mild dysarthria Extraocular movements: Intact in all cardinal gaze Ptosis: Absent Visual giles: R upper quadrantinopsia Facial sensation: decreased sensation L face Facial movements: Intact and symmetric Motor Exam: left upward drift left leg w some antigravity movement RUE and RLE 5/5 Tremor/Abnormal Movements: Resting tremor: Absent Intention tremor: Absent Postural tremor: Absent Sensory Exam: Light touch: decreased sensation left arm and left leg also w additional component of extinguishing to double simultaneous stimuli Coordination: Finger to nose: Intact w right; unable to do w the left Medical Decision Making: - Extensive number of diagnosis or management options are considered above. - Extensive amount of complex data reviewed. - High risk of complication and/or morbidity or mortality are associated with di fferential diagnostic considerations above. - There may be uncertain outcome and increased probability of prolonged functional impairment or high probability of severe prolonged functional impairment associated with some of these differential diagnosis. Medical Data Reviewed: 1.Data reviewed include clinical labs, radiology, Medical Tests; 2.Tests results discussed w/performing or interpreting physician; 3.Obtaining/reviewing old medical records; 4.Obtaining case history from another source; 5.Independent review of image, tracing or specimen. Patient was informed the Neurology Consult would happen via TeleHealth consult by way of interactive audio and video telecommunications and consented to receiving care in this manner. Medications and Allergies Allergies Allergy/AdvReac Type Severity Reaction Status Date / Time No Known Allergies Allergy Verified 04/10/19 11:23 Home Medications Medication Instructions Recorded Confirmed Last Taken Type Aspirin [Aspirin BABY CHEW TAB] 81 mg PO QDAY 30 Days #30 tab.chew 08/22/19 Unknown Rx Docusate Sodium [Colace] 100 mg PO BID PRN #20 capsule 08/22/19 Unknown Rx Simvastatin 40 mg PO QDAY #30 tablet 10/07/19 Unknown Rx amLODIPine 10 mg PO DAILY #30 tab 10/07/19 Unknown Rx lisinopriL [Zestril TAB] 20 mg PO QDAY #30 tablet 10/07/19 Unknown Rx Exam - Constitutional Vitals: Temp Pulse Resp BP Pulse Ox 98.4 F 70 15 125/87 99 02/26/20 11:36 02/26/20 11:36 02/26/20 11:36 02/26/20 11:36 02/26/20 11:36
[2020-02-26 12:47] LABS: Basophils % (Auto) 0.7 % (0.0-1.8); Eosinophils % (Auto) 0.4 % (0.0-4.3); Hematocrit 44.4 % (35.5-45.6); Hemoglobin 14.8 gm/dl (11.8-15.2); Lymphocytes # (Auto) 1.5 K/mm3 (1.2-5.4); Lymphocytes % (Auto) 24.9 % (13.4-35.0); Mean Corpuscular HGB Conc 33 % (32-34); Mean Corpuscular Volume 84 fl (84-94); Monocytes # (Auto) 0.6 K/mm3 (0.0-0.8); Monocytes % (Auto) 9.2 % (0.0-7.3); Platelet Count 169 K/mm3 (140-440); Red Blood Count 5.27 M/mm3 (3.65-5.03); Red Cell Distribution Width 13.7 % (13.2-15.2)
--- NOTE | 2020-02-26 12:52 | History and Physical Report ---
History of Present Illness Chief complaint: I feel weak History of present illness: 54 YO Male with HTN, CVA, Obesity, PE not currently on therapeutic anticoagulation presents to ED for evaluation. Patient states that he experienced a sudden onset of weakness and numbness on his left side approximately 2 to 3 days ago. Patient states that symptoms have persisted since their onset at that time. Patient was seen and evaluated by his primary care physician and instructed to seek further care. Patient transported to [facility] via private vehicle. Patient seen and evaluated in the emergency department. A code stroke was called. Lab and imaging studies were subsequently reviewed. Patient underwent CT CT scan of the head which revealed a right middle cerebral artery ischemic infarct. Tele-neurology consulted. Patient admitted to medical floor and initiated on CVA protocol. Neurology team consulted in ED. Patient initiated on dual antiplatelet therapy. Patient denies fever, chills, chest pain, palpitation, productive cough, skin rash, recent ill contacts, syncope, seizure, or known exposure to COVID-19. Prior admission on 08/21/2019 reviewed. All medication listed at time of admission has been reconciled. Past History Past Medical History: hypertension, pulmonary embolism, stroke Past Surgical History: Other (PEG tube placement) Social history: single. denies: smoking, alcohol abuse, prescription drug abuse Family history: diabetes, hypertension Medications and Allergies Allergies Allergy/AdvReac Type Severity Reaction Status Date / Time No Known Allergies Allergy Verified 04/10/19 11:23 Home Medications Medication Instructions Recorded Confirmed Last Taken Type Aspirin [Aspirin BABY CHEW TAB] 81 mg PO QDAY 30 Days #30 tab.chew 08/22/19 Unknown Rx Docusate Sodium [Colace] 100 mg PO BID PRN #20 capsule 08/22/19 Unknown Rx Simvastatin 40 mg PO QDAY #30 tablet 10/07/19 Unknown Rx amLODIPine 10 mg PO DAILY #30 tab 10/07/19 Unknown Rx lisinopriL [Zestril TAB] 20 mg PO QDAY #30 tablet 10/07/19 Unknown Rx Review of Systems Constitutional: no weight loss, no weight gain, no fever, no chills, no sweats Ears, nose, mouth and throat: no ear pain, no tinnitis, no decreased hearing, no nasal congestion Cardiovascular: no chest pain, no palpitations, no edema, no syncope, no lighth eadedness Respiratory: no cough, no excessive sputum, no dyspnea on exertion Gastrointestinal: no abdominal pain, no nausea, no diarrhea Genitourinary Male: no dysuria, no hematuria, no urinary frequency, no urinary hesitancy, no incontinence Rectal: no pain, no incontinence, no bleeding Musculoskeletal: no neck stiffness, no shooting arm pain, no arm numbness/tingling, no low back pain, no shooting leg pain, no leg numbness/tingling Integumentary: no rash, no pruritis, no sores, no jaundice Neurological: weakness, numbness, no syncope, no ataxia, no change in speech, no change in mentation, no confusion Psychiatric: no anxiety, no memory loss, no sleep disturbances, no insomnia, no change in appetite, no disorientation Endocrine: no cold intolerance, no polyphagia, no excessive thirst, no polyuria, no nocturia, no excessive sweating Hematologic/Lymphatic: no easy bruising, no lymphadenopathy, no lymphedema Allergic/Immunologic: no urticaria, no allergic rhinitis, no anaphylaxis Exam - Constitutional Vitals: Temp Pulse Resp BP Pulse Ox 98.4 F 70 15 125/87 99 02/26/20 11:36 02/26/20 11:36 02/26/20 11:36 02/26/20 11:36 02/26/20 11:36 General appearance: Present: mild distress - EENT Eyes: Present: PERRL ENT: hearing intact, clear oral mucosa - Neck Neck: Present: supple, normal ROM - Respiratory Respiratory effort: normal Respiratory: bilateral: CTA - Cardiovascular Heart Sounds: Present: S1 & S2. Absent: rub, click - Extremities Extremities: pulses symmetrical, No edema Peripheral Pulses: within normal limits - Abdominal General gastrointestinal: Present: soft, non-tender, non-distended, normal bowel sounds Male genitourinary: Present: normal - Integumentary Integumentary: Present: clear, warm, dry - Musculoskeletal Musculoskeletal: left sided weakness - Psychiatric Psychiatric: appropriate mood/affect, intact judgment & insight - Neurologic Neurologic: CNII-XII intact, moves all extremities, no gait normal Results - Labs CBC & Chem 7: 02/26/20 12:24 02/26/20 12:24 Labs: Abnormal lab results 02/26/20 Range/Units 12:24 RBC 5.27 H (3.65-5.03) M/mm3 [place] % (Auto) 9.2 H (0.0-7.3) % Assessment and Plan - Patient Problems (1) Acute CVA (cerebrovascular accident) Onset Date: 07/28/14 Current Visit: Yes Status: Acute Plan to address problem: CVA Protocol: CT head, Neuro check, neurology consulted, Physical therapy, occupational therapy, speech therapy, DAPT, lipid panel, statin therapy. (2) HTN (hypertension) Current Visit: No Status: Acute Qualifiers: Hypertension type: essential hypertension Qualified Code(s): I10 - Essential (primary) hypertension Plan to address problem: Continue medical management, supportive care. (3) DVT prophylaxis Current Visit: No Status: Acute Plan to address problem: SCD to BLE while in bed, Pt is ambulatory
[2020-02-26 12:56] LABS: INR 1.06 (0.87-1.13)
[2020-02-26 12:57] LABS: Partial Thromboplastin Time 27.7 Sec. (24.2-36.6)
[2020-02-26] MEDS ORDERED: ONDANSETRON 4 MG/2 ML INJ IV PRN (12:58)
[2020-02-26] MEDS ORDERED: PROMETHAZINE 25 MG RECT SUPP PR PRN (12:58)
[2020-02-26] MEDS ORDERED: ACETAMINOPHEN 325 MG TAB PO PRN (12:58)
[2020-02-26] MEDS ORDERED: METOCLOPRAMIDE 10 MG TAB PO PRN (12:58)
[2020-02-26] MEDS ORDERED: MAGNESIUM HYDROXIDE (MOM) ORAL LIQD UDC PO PRN (12:58)
[2020-02-26 13:07] LABS: Alanine Aminotransferase 29 units/L (7-56); Albumin 4.1 g/dL (3.9-5); BUN/Creatinine Ratio 12; Blood Urea Nitrogen 17 mg/dL (9-20); Calcium 9.5 mg/dL (8.4-10.2); Hemolysis Index 8
--- NOTE | 2020-02-26 15:10 | Vascular Lab Report ---
Bilateral Carotid Doppler Ultrasound INDICATION : stroke TECHNIQUE: Grayscale and color Doppler imaging performed through the neck. COMPARISON: None FINDINGS: Right: There is no significant atherosclerotic disease. Peak systolic velocity in the CCA is 62 cm/ s with end-diastolic velocity of 14 cm/s. Peak systolic velocity in the proximal ICA is 50 cm/s with end-diastolic velocity of 13 cm/s. ICA to CCA ratio is less than 2. There is antegrade flow in the E CA and the vertebral artery. Left: There is no significant atherosclerotic disease. Peak systolic velocity in the CCA is 66 cm/s w ith end-diastolic velocity of 19 cm/s. Peak systolic velocity in the proximal ICA is 68 cm/s with end -diastolic velocity of 27 cm/s. ICA to CCA ratio is less than 2. There is antegrade flow in the ECA and the vertebral artery. IMPRESSION: No hemodynamically significant stenosis by NASCET criteria. Signer Name: Heladio Spivey MD Signed: 02/26/2020 3:06 PM Workstation Name: [id number]
--- NOTE | 2020-02-26 16:02 | History and Physical Report ---
History of Present Illness Date of examination: 02/26/20 Date of admission: 02/26/20 13:45 Chief complaint: Left side numbness and weakness and tendency to fall associted with right side blurred vision According to pt. since 2014 he had several CVA and ? hx of PE he denied irregular heart beat he is on ASA daily According to him he noticed the weakness left side 2 weeks ago he visited his PCP , CT brain obtained is remarkable for subacute R MCA infarct he denied family hx of similar nature , drug abuse , smoking or drinking hx . Past History Past Medical History: hypertension, hyperlipidemia, stroke Medications and Allergies Allergies Allergy/AdvReac Type Severity Reaction Status Date / Time No Known Allergies Allergy Verified 04/10/19 11:23 Home Medications Medication Instructions Recorded Confirmed Last Taken Type Aspirin [Aspirin BABY CHEW TAB] 81 mg PO QDAY 30 Days #30 tab.chew 08/22/19 Unknown Rx Docusate Sodium [Colace] 100 mg PO BID PRN #20 capsule 08/22/19 Unknown Rx Simvastatin 40 mg PO QDAY #30 tablet 10/07/19 Unknown Rx amLODIPine 10 mg PO DAILY #30 tab 10/07/19 Unknown Rx lisinopriL [Zestril TAB] 20 mg PO QDAY #30 tablet 10/07/19 Unknown Rx Active Meds: Active Medications Acetaminophen (Tylenol) 650 mg PO Q4H PRN PRN Reason: Pain, Mild (1-3) Aspirin (Aspirin) 325 mg PO QDAY ASH Atorvastatin Calcium (Lipitor) 40 mg PO QHS ASH Bisacodyl (Dulcolax) 10 mg OK QDAY PRN PRN Reason: Constipation Clopidogrel Bisulfate (Plavix) 75 mg PO QDAY ASH Magnesium Hydroxide (Milk Of Magnesia) 30 ml PO Q4H PRN PRN Reason: Constipation Metoclopramide HCl (Reglan) 10 mg PO Q6H PRN PRN Reason: Nausea And Vomiting Ondansetron HCl (Zofran) 4 mg IV Q8H PRN PRN Reason: Nausea And Vomiting Promethazine HCl (Phenergan) 25 mg OK Q6H PRN PRN Reason: Nausea And Vomiting Sodium Chloride (Sodium Chloride Flush Syringe 10 Ml) 10 ml IV PRN PRN PRN Reason: LINE FLUSH Review of Systems All systems: negative Physical Examination - Vital Signs Vital Signs: Vital Signs Temp Pulse Resp BP Pulse Ox 98.4 F 70 15 125/87 99 02/26/20 11:36 02/26/20 11:36 02/26/20 11:36 02/26/20 11:36 02/26/20 11:36 - Constitutional General appearance: comfortable - EENT EENT: Present: ATNC, PERRL, mucous membranes moist - Cardiovascular Cardiovascular: Present: regular rate - Integumentary Integumentary: Present: normal - Neurologic Cranial nerve examination: V1/V2/V3 grossly intact, other (left facial droop and decrease sensation left side, possible right upper quadronopia ) Speech examination: intact Sensorimotor examination: other (left pronator drift ) Results - Laboratory Findings CBC and BMP: 02/26/20 12:24 02/26/20 12:24 Abnormal Lab Findings: Abnormal Labs 02/26/20 02/26/20 12:24 12:24 RBC 5.27 H [place] % (Auto) 9.2 H Sodium 133 L Glucose 274 H Total Protein 8.3 H Assessment and Plan 1- This is 54 ys old male with hx of HTN,DM,HLP with recurrent CVA presented wi th 2 weeks hx of left side weakness and tendency to fall CT in PCP office remarkable for subacute Right MCA infarct and remote left parietal infarct 2- Hx of recurrent CVA since 2014 3- Hx of HTN,HLP 4- Hx of DM PLAN 1- Control HTN 2- Lipitor 40 mg 3- ASA 81 mg daily 4- Echo cardiogram 5- MRI/MRA intracranial and neck 6- fasting lipid profil 7- cardiac monitoring R/O AF ? 8- ESR,XENIA, UDS,sickle screen, b12 ,folate. 9- Consider LEA if echo and cardiac monitoring is unremarkable due to the rec urrent CVA 10- Consider cardiac follow as well out.pt. cardiac monitoring 11- DVT precaution 12 -Neuro/cardiac follow up 13-PT/ST will follow as needed
[2020-02-27 05:24] LABS: Amphetamine Screen,Urine PRESUMPTIVE NEGATIVE; Benzodiazepines Screen,Urine PRESUMPTIVE NEGATIVE; Cannabinoid Screen,Urine PRESUMPTIVE NEGATIVE; Cocaine Screen,Urine PRESUMPTIVE NEGATIVE; Methadone Screen,Urine PRESUMPTIVE NEGATIVE; Opiate Screen,Urine PRESUMPTIVE NEGATIVE
[2020-02-27 07:33] LABS: Chol/HDL Ratio 3.43 %
[2020-02-27] MEDS: CLOPIDOGREL 75 MG TAB PO SCH (09:01)
[2020-02-27] MEDS: ASPIRIN 325 MG TAB PO SCH (09:01)
--- NOTE | 2020-02-27 11:24 | Progress Note ---
Assessment and Plan Assessment and plan: 54 YO Male with HTN, CVA, Obesity, PE not currently on therapeutic anticoagulation presents to ED for evaluation. Patient states that he experienced a sudden onset of weakness and numbness on his left side approximately 2 to 3 days ago. Patient states that symptoms have persisted since their onset at that time. Patient was seen and evaluated by his primary care physician and instructed to seek further care. Patient transported to [facility] via private vehicle. Patient seen and evaluated in the emergency department. A code stroke was called. Lab and imaging studies were subsequently reviewed. Patient underwent CT CT scan of the head which revealed a right middle cerebral artery ischemic infarct. Tele-neurology consulted. Patient admitted to medical floor and initiated on CVA protocol. Neurology team consulted in ED. Patient initiated on dual antiplatelet therapy. Patient denies fever, chills, chest pain, palpitation, productive cough, skin rash, recent ill contacts, syncope, seizure, or known exposure to COVID-19. Prior admission on 08/21/2019 reviewed. All medication listed at time of admission has been reconciled. Patient was seen by neurology CVA work-up started. And per neurology his is 54 ys old male with hx of HTN,DM,HLP with recurrent CVA presented with 2 weeks hx of left side weakness and tendency to fall CT in PCP office remarkable for subacute Right MCA infarct and remote left parietal infarct Left side numbness and weakness and tendency to fall associted with right side blurred vision According to pt. since 2014 he had several CVA and ? hx of PE he denied irregular heart beat he is on ASA daily According to him he noticed the weakness left side 2 weeks ago he visited his PCP , CT brain obtained is remarkable for subacute R MCA infarct he denied family hx of similar nature , drug abuse , smoking or drinking hx . CT head: IMPRESSION: Large subacute-appearing infarct in the right MCA distribution as detailed above. (1) Acute CVA (cerebrovascular accident) Onset Date: 07/28/14 Current Visit: Yes Status: Acute Plan to address problem: CVA Protocol: CT head, Neuro check, neurology consulted, Physical therapy, occupational therapy, speech therapy, DAPT, lipid panel, statin therapy. MRI pending. Per neurology patient will need a LEA due to recurrent CVA this is the fourth time. Also recommended outpatient cardiac monitoring. We will continue aspirin and Lipitor patient is also on Plavix will continue this. Check fasting lipid profile. (2) HTN (hypertension) Current Visit: No Status: Acute Qualifiers: Hypertension type: essential hypertension Qualified Code(s): I10 - Essential (primary) hypertension Plan to address problem: Continue medical management, supportive care. (3) diabetes mellitus Continue insulin monitoring. (4) DVT prophylaxis Current Visit: No Status: Acute Plan to address problem: SCD to BLE while in bed, Pt is ambulatory History Interval history: Patient seen and examined, informs me of improved strenght in left lower ext, still with some parasthesia in upper ext Hospitalist Physical - Physical exam Narrative exam: VITAL SIGNS: Reviewed. GENERAL: The patient appears normally developed, Vital signs as documented. HEAD: No signs of head trauma. EYES: Pupils are equal. Extraocular motions intact. EARS: Hearing grossly intact. MOUTH: Oropharynx is normal. NECK: No adenopathy, no JVD. CHEST: Chest with clear breath sounds bilaterally. No wheezes, rales, or rhonchi. CARDIAC: Regular rate and rhythm. S1 and S2, without murmurs, gallops, or rubs. VASCULAR: No Edema. Peripheral pulses normal and equal in all extremities. ABDOMEN: Soft, non tender and non distended. No rebound or guarding, and no masses palpated. Bowel Sounds normal. MUSCULOSKELETAL: Good range of motion of all major joints. Extremities without clubbing, cyanosis or edema. NEUROLOGIC EXAM: Alert and oriented x 3 3/5 motor strength upper and lower left extremities.. Speech normal. Follows commands. PSYCHIATRIC: Mood normal. SKIN: detial exam as documented in skin assessment - Constitutional Vitals: Temp Pulse Resp BP Pulse Ox 98.3 F 66 18 125/87 99 02/27/20 07:50 02/27/20 07:50 02/27/20 09:00 02/27/20 07:50 02/27/20 09:00 General appearance: Present: mild distress HEART Score - HEART Score Troponin: Troponin T < 0.010 ng/mL (0.00-0.029) 02/26/20 12:24 Results - Labs CBC & Chem 7: 02/26/20 12:24 02/26/20 12:24 Labs: Laboratory Last Values WBC 6.1 K/mm3 (4.5-11.0) 02/26/20 12:24 RBC 5.27 M/mm3 (3.65-5.03) H 02/26/20 12:24 Hgb 14.8 gm/dl (11.8-15.2) 02/26/20 12:24 Hct 44.4 % (35.5-45.6) 02/26/20 12:24 MCV 84 fl (84-94) 02/26/20 12:24 MCH 28 pg (28-32) 02/26/20 12:24 MCHC 33 % (32-34) 02/26/20 12:24 RDW 13.7 % (13.2-15.2) 02/26/20 12:24 Plt Count 169 K/mm3 (140-440) 02/26/20 12:24 Lymph % (Auto) 24.9 % (13.4-35.0) 02/26/20 12:24 Cla[place]orne % (Auto) 9.2 % (0.0-7.3) H 02/26/20 12:24 Eos % (Auto) 0.4 % (0.0-4.3) 02/26/20 12:24 Baso % (Auto) 0.7 % (0.0-1.8) 02/26/20 12:24 Lymph # 1.5 K/mm3 (1.2-5.4) 02/26/20 12:24 Cla[place]orne # 0.6 K/mm3 (0.0-0.8) 02/26/20 12:24 Eos # 0.0 K/mm3 (0.0-0.4) 02/26/20 12:24 Baso # 0.0 K/mm3 (0.0-0.1) 02/26/20 12:24 Seg Neutrophils % 64.8 % (40.0-70.0) 02/26/20 12:24 Seg Neutrophils # 4.0 K/mm3 (1.8-7.7) 02/26/20 12:24 PT 13.9 Sec. (12.2-14.9) 02/26/20 12:24 INR 1.06 (0.87-1.13) 02/26/20 12:24 APTT 27.7 Sec. (24.2-36.6) 02/26/20 12:24 Sodium 133 mmol/L (137-145) L 02/26/20 12:24 Potassium 5.0 mmol/L (3.6-5.0) 02/26/20 12:24 Chloride 100.4 mmol/L (98-107) 02/26/20 12:24 Carbon Dioxide 22 mmol/L (22-30) 02/26/20 12:24 Anion Gap 16 mmol/L 02/26/20 12:24 BUN 17 mg/dL (9-20) 02/26/20 12:24 Creatinine 1.4 mg/dL (0.8-1.5) 02/26/20 12:24 Estimated GFR > 60 ml/min 02/26/20 12:24 BUN/Creatinine Ratio 12 % 02/26/20 12:24 Glucose 274 mg/dL (75-100) H 02/26/20 12:24 Calcium 9.5 mg/dL (8.4-10.2) 02/26/20 12:24 Total Bilirubin 0.30 mg/dL (0.1-1.2) 02/26/20 12:24 AST 20 units/L (5-40) 02/26/20 12:24 ALT 29 units/L (7-56) 02/26/20 12:24 Alkaline Phosphatase 67 units/L (35-129) 02/26/20 12:24 Troponin T < 0.010 ng/mL (0.00-0.029) 02/26/20 12:24 Total Protein 8.3 g/dL (6.3-8.2) H 02/26/20 12:24 Albumin 4.1 g/dL (3.9-5) 02/26/20 12:24 Albumin/Globulin Ratio 1.0 % 02/26/20 12:24 Triglycerides 74 mg/dL (2-149) 02/27/20 06:33 Cholesterol 127 mg/dL (50-199) 02/27/20 06:33 LDL Cholesterol Direct 83 mg/dL (50-130) 02/27/20 06:33 HDL Cholesterol 37 mg/dL (40-59) L 02/27/20 06:33 Cholesterol/HDL Ratio 3.43 % 02/27/20 06:33 Urine Opiates Screen Presumptive negative 02/27/20 04:59 Urine Methadone Screen Presumptive negative 02/27/20 04:59 Ur Barbiturates Screen Presumptive negative 02/27/20 04:59 Ur Phencyclidine Scrn Presumptive negative 02/27/20 04:59 Ur Amphetamines Screen Presumptive negative 02/27/20 04:59 U Benzodiazepines Scrn Presumptive negative 02/27/20 04:59 Urine Cocaine Screen Presumptive negative 02/27/20 04:59 U Marijuana (THC) Screen Presumptive negative 02/27/20 04:59 Drugs of Abuse Note Disclamer 02/27/20 04:59 Plasma/Serum Alcohol < 0.01 % (0-0.07) 02/26/20 12:24 - Diagnostic Impressions Diagnostic Impressions: Echocardiogram 02/26/20 13:00 Transthoracic Echocardiogram Indication: Stroke BP: 125/87 HR: 68 Rhythm: NSR Conclusions *The left ventricular chamber size is normal. *Global left ventricular wall motion and contractility are within normal limits. *Global left ventricular systolic function is normal. *The estimated ejection fraction is 60-65%. *Normal left ventricular diastolic filling is observed. *The left atrium is normal in size with no visual thrombus identified. *The interatrial septum appears normal. *The aortic valve appears to have a small raphe cusp. *There is mild aortic regurgitation. *There is no evidence of aortic stenosis. *The right ventricular systolic pressure is calculated at 18 mmHg. Findings Left Ventricle: The left ventricular chamber size is normal. Mild concentric left ventricular hypertrophy is observed. Global left ventricular wall motion and contractility are within normal limits. Global left ventricular systolic function is normal. The estimated ejection fraction is 60-65%. Left Atrium: The left atrium is normal in size with no visual thrombus identified. Right Ventricle: The right ventricular cavity size is normal. The right ventricular global systolic function is normal. Right Atrium: The right atrium appears normal. The interatrial septum appears normal. A patent foramen ovale is demonstrated by agitated saline contrast. Aortic Valve: The aortic valve appears to have a small raphe cusp. There is mild aortic regurgitation. There is mild aortic stenosis. The mean gradient of the aortic valve is 12 mmHg. The aortic valve area, by VTI's, is calculated at 2.23008378158287 cm2. The calculated aortic regurgitation pressure half-time is 748 msec. Mitral Valve: The mitral valve leaflets appear normal. There is no evidence of mitral regurgitation. There is no evidence of mitral stenosis. Tricuspid Valve: The tricuspid valve leaflets are normal. There is trace tricuspid regurgitation. The right ventricular systolic pressure is calculated at 18 mmHg. There is no tricuspid stenosis. Pulmonic Valve: The pulmonic valve appears normal. There is no evidence of pulmonic regurgitation. There is no pulmonic stenosis. Pericardium: There is no pericardial effusion. Aorta: There is no dilatation of the ascending aorta. There is no dilatation of the aortic arch. There is no dilatation of the descending thoracic aorta. There is no dilatation of the aortic root. Venous: The inferior vena cava appears normal in size. Measurements Chambers 2D Name Value Normal Range RVIDd (AP) 2D 3.37 cm (0.9 - 2.6) IVSd (2D) 1.33 cm (0.6 - 1.1) LVPWd (2D) 1.35 cm (0.6 - 1.1) IVS:LVPW ratio (2D) 0.98 ratio - LVIDd (2D) 4.74 cm (3.7 - 5.6) LVIDs (2D) 2.96 cm (2 - 3.8) LV FS (Teichholz) (2D) 37.6 % - LV FS (cube) (2D) 37.6 % - EF Teichholz (2D) 67.4 % - Ao root diameter (2D) 3 cm (2 - 3.7) LA dimension (AP) 2D 3.4 cm (1.9 - 4) LA:Ao ratio (2D) 1.13 ratio - Volumes/Mass Name Value Normal Range LA ESV SP 4CH (MOD) 42 ml - LA ESV SP 2CH (MOD) 78 ml - LA ESV BP (MOD) 59 ml - LA ESV BP (MOD) index 26.2 ml/m2 - Diastolic/Systolic Function Name Value Normal Range MV E-wave Vmax 0.54 m/sec - MV A-wave Vmax 0.61 m/sec - MV E:A ratio 0.9 ratio - LV septal e' Vmax 0.09 m/sec - LV lateral e' Vmax 0.15 m/sec - LV E:e' septal ratio 6.1 ratio - LV E:e' lateral ratio 3.7 ratio - Aortic Valve Name Value Normal Range AV VTI 39.5 cm - AV mean gradient 12 mmHg - LVOT diameter 2.4 cm - LVOT VTI 20.3 cm - LVOT mean gradient 3 mmHg - SV LVOT 92 ml - BUZZ (continuity VTI) 2.32 cm2 - AR PHT 748 msec - AR peak gradient 84 mmHg - Mitral Valve Name Value Normal Range MV PHT 58 msec - MVA (PHT) 3.79 cm2 - Tricuspid Valve Name Value Normal Range TR Vmax 1.96 m/sec - TR peak gradient 15 mmHg - RAP 3 mmHg - RVSP 18 mmHg - Pulmonic Valve/Qp:Qs Name Value Normal Range PV Vmax 1.26 m/sec - PV peak gradient 6 mmHg - Luna/IV: Voiding Method Toilet IV Catheter Type [Right Hand] INT / Saline Lock Active Medications - Current Medications Current Medications: Generic Name Dose Route Start Last Admin Trade Name Freq PRN Reason Stop Dose Admin Acetaminophen 650 mg 02/26/20 12:58 Tylenol PO Q4H PRN Pain, Mild (1-3) Aspirin 325 mg 02/27/20 10:00 02/27/20 09:01 Aspirin PO 325 mg QDAY ASH Administration Atorvastatin Calcium 40 mg 02/26/20 22:00 02/26/20 21:13 Lipitor PO 40 mg QHS ASH Administration Bisacodyl 10 mg 02/26/20 12:58 Dulcolax ND QDAY PRN Constipation Clopidogrel Bisulfate 75 mg 02/27/20 10:00 02/27/20 09:01 Plavix PO 75 mg QDAY ASH Administration Magnesium Hydroxide 30 ml 02/26/20 12:58 Milk Of Magnesia PO Q4H PRN Constipation Metoclopramide HCl 10 mg 02/26/20 12:58 Reglan PO Q6H PRN Nausea And Vomiting Ondansetron HCl 4 mg 02/26/20 12:58 Zofran IV Q8H PRN Nausea And Vomiting Promethazine HCl 25 mg 02/26/20 12:58 Phenergan ND Q6H PRN Nausea And Vomiting Sodium Chloride 10 ml 02/26/20 12:58 Sodium Chloride Flush Syringe 10 Ml IV PRN PRN LINE FLUSH
[2020-02-28] MEDS: ASPIRIN 325 MG TAB PO SCH (09:24)
[2020-02-28] MEDS: CLOPIDOGREL 75 MG TAB PO SCH (09:24)
--- NOTE | 2020-02-28 10:57 | Progress Note ---
Assessment and Plan Assessment and plan: 54 YO Male with HTN, CVA, Obesity, PE not currently on therapeutic anticoagulation presents to ED for evaluation. Patient states that he experienced a sudden onset of weakness and numbness on his left side approximately 2 to 3 days ago. Patient states that symptoms have persisted since their onset at that time. Patient was seen and evaluated by his primary care physician and instructed to seek further care. Patient transported to [facility] via private vehicle. Patient seen and evaluated in the emergency department. A code stroke was called. Lab and imaging studies were subsequently reviewed. Patient underwent CT CT scan of the head which revealed a right middle cerebral artery ischemic infarct. Tele-neurology consulted. Patient admitted to medical floor and initiated on CVA protocol. Neurology team consulted in ED. Patient initiated on dual antiplatelet therapy. Patient denies fever, chills, chest pain, palpitation, productive cough, skin rash, recent ill contacts, syncope, seizure, or known exposure to COVID-19. Prior admission on 08/21/2019 reviewed. All medication listed at time of admission has been reconciled. Patient was seen by neurology CVA work-up started. And per neurology his is 54 ys old male with hx of HTN,DM,HLP with recurrent CVA presented with 2 weeks hx of left side weakness and tendency to fall CT in PCP office remarkable for subacute Right MCA infarct and remote left parietal infarct Left side numbness and weakness and tendency to fall associted with right side blurred vision According to pt. since 2014 he had several CVA and ? hx of PE he denied irregular heart beat he is on ASA daily According to him he noticed the weakness left side 2 weeks ago he visited his PCP , CT brain obtained is remarkable for subacute R MCA infarct he denied family hx of similar nature , drug abuse , smoking or drinking hx . CT head: IMPRESSION: Large subacute-appearing infarct in the right MCA distribution as detailed above. 02/27: Awaiting cardiology reevaluation for possible LEA. Continue current management medical management. PT OT due to recurrent dizziness. We will also await MRI review. (1) Acute CVA (cerebrovascular accident) Onset Date: 07/28/14 Current Visit: Yes Status: Acute Plan to address problem: CVA Protocol: CT head, Neuro check, neurology consulted, Physical therapy, occupational therapy, speech therapy, DAPT, lipid panel, statin therapy. MRI pending. Per neurology patient will need a LEA due to recurrent CVA this is the fourth time. Also recommended outpatient cardiac monitoring. We will continue aspirin and Lipitor patient is also on Plavix will continue this. Check fasting lipid profile. (2) HTN (hypertension) Current Visit: No Status: Acute Qualifiers: Hypertension type: essential hypertension Qualified Code(s): I10 - Essent ial (primary) hypertension Plan to address problem: Continue medical management, supportive care. (3) diabetes mellitus Continue insulin monitoring. (4) DVT prophylaxis Current Visit: No Status: Acute Plan to address problem: SCD to BLE while in bed, Pt is ambulatory History Interval history: Patient seen and examined, continues to report improved strength in left lower ext, still with some parasthesia in upper ext. Reports intermittent headache 3/10 in intensity with no associated blurry vision. Still reports some dizzine ss and unsteady gait. Hospitalist Physical - Physical exam Narrative exam: VITAL SIGNS: Reviewed. GENERAL: The patient appears normally developed, Vital signs as documented. HEAD: No signs of head trauma. EYES: Pupils are equal. Extraocular motions intact. EARS: Hearing grossly intact. MOUTH: Oropharynx is normal. NECK: No adenopathy, no JVD. CHEST: Chest with clear breath sounds bilaterally. No wheezes, rales, or rhonchi. CARDIAC: Regular rate and rhythm. S1 and S2, without murmurs, gallops, or rubs. VASCULAR: No Edema. Peripheral pulses normal and equal in all extremities. ABDOMEN: Soft, non tender and non distended. No rebound or guarding, and no masses palpated. Bowel Sounds normal. MUSCULOSKELETAL: Good range of motion of all major joints. Extremities without clubbing, cyanosis or edema. NEUROLOGIC EXAM: Alert and oriented x 3 3/5 motor strength left upper and 4/5 lower left extremitie. Speech normal. Follows commands. PSYCHIATRIC: Mood normal. SKIN: detial exam as documented in skin assessment - Constitutional Vitals: Temp Pulse Resp BP Pulse Ox 98.0 F 60 17 132/84 98 02/28/20 08:18 02/28/20 08:55 02/28/20 08:55 02/28/20 08:18 02/28/20 08:55 General appearance: Present: mild distress HEART Score - HEART Score Troponin: Troponin T < 0.010 ng/mL (0.00-0.029) 02/26/20 12:24 Results - Labs CBC & Chem 7: 02/26/20 12:24 02/26/20 12:24 Labs: Laboratory Last Values WBC 6.1 K/mm3 (4.5-11.0) 02/26/20 12:24 RBC 5.27 M/mm3 (3.65-5.03) H 02/26/20 12:24 Hgb 14.8 gm/dl (11.8-15.2) 02/26/20 12:24 Hct 44.4 % (35.5-45.6) 02/26/20 12:24 MCV 84 fl (84-94) 02/26/20 12:24 MCH 28 pg (28-32) 02/26/20 12:24 MCHC 33 % (32-34) 02/26/20 12:24 RDW 13.7 % (13.2-15.2) 02/26/20 12:24 Plt Count 169 K/mm3 (140-440) 02/26/20 12:24 Lymph % (Auto) 24.9 % (13.4-35.0) 02/26/20 12:24 Grundy % (Auto) 9.2 % (0.0-7.3) H 02/26/20 12:24 Eos % (Auto) 0.4 % (0.0-4.3) 02/26/20 12:24 Baso % (Auto) 0.7 % (0.0-1.8) 02/26/20 12:24 Lymph # 1.5 K/mm3 (1.2-5.4) 02/26/20 12:24 Grundy # 0.6 K/mm3 (0.0-0.8) 02/26/20 12:24 Eos # 0.0 K/mm3 (0.0-0.4) 02/26/20 12:24 Baso # 0.0 K/mm3 (0.0-0.1) 02/26/20 12:24 Seg Neutrophils % 64.8 % (40.0-70.0) 02/26/20 12:24 Seg Neutrophils # 4.0 K/mm3 (1.8-7.7) 02/26/20 12:24 ESR 15 mm/Hr (0-20) 02/27/20 16:16 PT 13.9 Sec. (12.2-14.9) 02/26/20 12:24 INR 1.06 (0.87-1.13) 02/26/20 12:24 APTT 27.7 Sec. (24.2-36.6) 02/26/20 12:24 Sodium 133 mmol/L (137-145) L 02/26/20 12:24 Potassium 5.0 mmol/L (3.6-5.0) 02/26/20 12:24 Chloride 100.4 mmol/L (98-107) 02/26/20 12:24 Carbon Dioxide 22 mmol/L (22-30) 02/26/20 12:24 Anion Gap 16 mmol/L 02/26/20 12:24 BUN 17 mg/dL (9-20) 02/26/20 12:24 Creatinine 1.4 mg/dL (0.8-1.5) 02/26/20 12:24 Estimated GFR > 60 ml/min 02/26/20 12:24 BUN/Creatinine Ratio 12 % 02/26/20 12:24 Glucose 274 mg/dL (75-100) H 02/26/20 12:24 Calcium 9.5 mg/dL (8.4-10.2) 02/26/20 12:24 Total Bilirubin 0.30 mg/dL (0.1-1.2) 02/26/20 12:24 AST 20 units/L (5-40) 02/26/20 12:24 ALT 29 units/L (7-56) 02/26/20 12:24 Alkaline Phosphatase 67 units/L (35-129) 02/26/20 12:24 Troponin T < 0.010 ng/mL (0.00-0.029) 02/26/20 12:24 Total Protein 8.3 g/dL (6.3-8.2) H 02/26/20 12:24 Albumin 4.1 g/dL (3.9-5) 02/26/20 12:24 Albumin/Globulin Ratio 1.0 % 02/26/20 12:24 Triglycerides 74 mg/dL (2-149) 02/27/20 06:33 Cholesterol 127 mg/dL (50-199) 02/27/20 06:33 LDL Cholesterol Direct 83 mg/dL (50-130) 02/27/20 06:33 HDL Cholesterol 37 mg/dL (40-59) L 02/27/20 06:33 Cholesterol/HDL Ratio 3.43 % 02/27/20 06:33 Vitamin B12 243.6 pg/mL (211-911) 02/27/20 13:11 Folate 14.68 ng/mL (7.3-26.0) 02/27/20 13:11 Urine Opiates Screen Presumptive negative 02/27/20 04:59 Urine Methadone Screen Presumptive negative 02/27/20 04:59 Ur Barbiturates Screen Presumptive negative 02/27/20 04:59 Ur Phencyclidine Scrn Presumptive negative 02/27/20 04:59 Ur Amphetamines Screen Presumptive negative 02/27/20 04:59 U Benzodiazepines Scrn Presumptive negative 02/27/20 04:59 Urine Cocaine Screen Presumptive negative 02/27/20 04:59 U Marijuana (THC) Screen Presumptive negative 02/27/20 04:59 Drugs of Abuse Note Disclamer 02/27/20 04:59 Plasma/Serum Alcohol < 0.01 % (0-0.07) 02/26/20 12:24 - Diagnostic Impressions Diagnostic Impressions: Echocardiogram 02/26/20 13:00 Transthoracic Echocardiogram Indication: Stroke BP: 125/87 HR: 68 Rhythm: NSR Conclusions *The left ventricular chamber size is normal. *Global left ventricular wall motion and contractility are within normal limits. *Global left ventricular systolic function is normal. *The estimated ejection fraction is 60-65%. *Normal left ventricular diastolic filling is observed. *The left atrium is normal in size with no visual thrombus identified. *The interatrial septum appears normal. *The aortic valve appears to have a small raphe cusp. *There is mild aortic regurgitation. *There is no evidence of aortic stenosis. *The right ventricular systolic pressure is calculated at 18 mmHg. Findings Left Ventricle: The left ventricular chamber size is normal. Mild concentric left ventricular hypertrophy is observed. Global left ventricular wall motion and contractility are within normal limits. Global left ventricular systolic function is normal. The estimated ejection fraction is 60-65%. Left Atrium: The left atrium is normal in size with no visual thrombus identified. Right Ventricle: The right ventricular cavity size is normal. The right ventricular global systolic function is normal. Right Atrium: The right atrium appears normal. The interatrial septum appears normal. A patent foramen ovale is demonstrated by agitated saline contrast. Aortic Valve: The aortic valve appears to have a small raphe cusp. There is mild aortic regurgitation. There is mild aortic stenosis. The mean gradient of the aortic valve is 12 mmHg. The aortic valve area, by VTI's, is calculated at [id number] cm2. The calculated aortic regurgitation pressure half-time is 748 msec. Mitral Valve: The mitral valve leaflets appear normal. There is no evidence of mitral regurgitation. There is no evidence of mitral stenosis. Tricuspid Valve: The tricuspid valve leaflets are normal. There is trace tricuspid regurgitation. The right ventricular systolic pressure is calculated at 18 mmHg. There is no tricuspid stenosis. Pulmonic Valve: The pulmonic valve appears normal. There is no evidence of pulmonic regurgitation. There is no pulmonic stenosis. Pericardium: There is no pericardial effusion. Aorta: There is no dilatation of the ascending aorta. There is no dilatation of the aortic arch. There is no dilatation of the descending thoracic aorta. There is no dilatation of the aortic root. Venous: The inferior vena cava appears normal in size. Measurements Chambers 2D Name Value Normal Range RVIDd (AP) 2D 3.37 cm (0.9 - 2.6) IVSd (2D) 1.33 cm (0.6 - 1.1) LVPWd (2D) 1.35 cm (0.6 - 1.1) IVS:LVPW ratio (2D) 0.98 ratio - LVIDd (2D) 4.74 cm (3.7 - 5.6) LVIDs (2D) 2.96 cm (2 - 3.8) LV FS (Teichholz) (2D) 37.6 % - LV FS (cube) (2D) 37.6 % - EF Teichholz (2D) 67.4 % - Ao root diameter (2D) 3 cm (2 - 3.7) LA dimension (AP) 2D 3.4 cm (1.9 - 4) LA:Ao ratio (2D) 1.13 ratio - Volumes/Mass Name Value Normal Range LA ESV SP 4CH (MOD) 42 ml - LA ESV SP 2CH (MOD) 78 ml - LA ESV BP (MOD) 59 ml - LA ESV BP (MOD) index 26.2 ml/m2 - Diastolic/Systolic Function Name Value Normal Range MV E-wave Vmax 0.54 m/sec - MV A-wave Vmax 0.61 m/sec - MV E:A ratio 0.9 ratio - LV septal e' Vmax 0.09 m/sec - LV lateral e' Vmax 0.15 m/sec - LV E:e' septal ratio 6.1 ratio - LV E:e' lateral ratio 3.7 ratio - Aortic Valve Name Value Normal Range AV VTI 39.5 cm - AV mean gradient 12 mmHg - LVOT diameter 2.4 cm - LVOT VTI 20.3 cm - LVOT mean gradient 3 mmHg - SV LVOT 92 ml - BUZZ (continuity VTI) 2.32 cm2 - AR PHT 748 msec - AR peak gradient 84 mmHg - Mitral Valve Name Value Normal Range MV PHT 58 msec - MVA (PHT) 3.79 cm2 - Tricuspid Valve Name Value Normal Range TR Vmax 1.96 m/sec - TR peak gradient 15 mmHg - RAP 3 mmHg - RVSP 18 mmHg - Pulmonic Valve/Qp:Qs Name Value Normal Range PV Vmax 1.26 m/sec - PV peak gradient 6 mmHg - Luna/IV: Voiding Method Toilet IV Catheter Type [Right Hand] INT / Saline Lock Active Medications - Current Medications Current Medications: Generic Name Dose Route Start Last Admin Trade Name Freq PRN Reason Stop Dose Admin Acetaminophen 650 mg 02/26/20 12:58 Tylenol PO Q4H PRN Pain, Mild (1-3) Aspirin 325 mg 02/27/20 10:00 02/28/20 09:24 Aspirin PO 325 mg QDAY ASH Administration Atorvastatin Calcium 40 mg 02/26/20 22:00 02/27/20 21:53 Lipitor PO 40 mg QHS ASH Administration Bisacodyl 10 mg 02/26/20 12:58 Dulcolax NV QDAY PRN Constipation Clopidogrel Bisulfate 75 mg 02/27/20 10:00 02/28/20 09:24 Plavix PO 75 mg QDAY ASH Administration Magnesium Hydroxide 30 ml 02/26/20 12:58 Milk Of Magnesia PO Q4H PRN Constipation Metoclopramide HCl 10 mg 02/26/20 12:58 Reglan PO Q6H PRN Nausea And Vomiting Ondansetron HCl 4 mg 02/26/20 12:58 Zofran IV Q8H PRN Nausea And Vomiting Promethazine HCl 25 mg 02/26/20 12:58 Phenergan NV Q6H PRN Nausea And Vomiting Sodium Chloride 10 ml 02/26/20 12:58 Sodium Chloride Flush Syringe 10 Ml IV PRN PRN LINE FLUSH
[2020-02-28] MEDS ORDERED: DEXTROSE 50% IN WATER (25GM) 50 ML SYRINGE IV PRN (13:00)
[2020-02-28] MEDS: INSULIN LISPRO 100 UNIT/ML SUB-Q SCH ×2 (17:00→21:24)
--- NOTE | 2020-02-28 18:24 | Magnetic Resonance Report ---
MRI BRAIN WITHOUT CONTRAST INDICATION / CLINICAL INFORMATION: CVA. TECHNIQUE: Multiplanar, multisequence MR images of the brain were obtained. COMPARISON: Head CT 02/26/2020 and MRI brain 08/21/2019 FINDINGS: BRAIN / INTRACRANIAL CONTENTS: Diffusion-weighted images demonstrate a large area of restricted diffusion involving the right fronta l and parietal lobes consistent with subacute right MCA infarction. Signal changes are seen in the sa me distribution on ADC map, FLAIR and T2-weighted scans. There is mild effacement of adjacent cortica l sulci. An area of encephalomalacia is is noted along the lateral aspect of the right occipital lobe secondary to remote right occipital lobe infarction. This may be in the posterior cerebral artery di stribution. Decreased signal intensity in this region on gradient echo T2*weighted sequences indicate s the presence of remote blood breakdown products in this region of old infarction. This infarction p redates MRI brain dated 08/21/2019. Ventricles are normal in size and configuration. There is no other evidence of mass effect. No eviden ce of intracranial hemorrhage or extra-axial fluid collection is seen. Evaluation of the brainstem is remarkable for a remote pontine infarction lateralizing to the left of the midline. This region is associated with decreased signal intensity on gradient echo T2*weighted sequences indicating the presence of remote blood products within the irma. A similar finding was pre sent on previous study. Brainstem has an otherwise unremarkable appearance. Evaluation of the cerebel lum reveals no abnormality. CRANIOCERVICAL JUNCTION: No abnormalities are identified at the craniocervical junction. VASCULAR FLOW-VOIDS: Normal flow-voids are present within the major intracranial vessels. ORBITS: The orbits have an unremarkable appearance. SINUSES / MASTOIDS: There is no indication of inflammatory disease in the paranasal sinuses or mastoi d air cells. ADDITIONAL FINDINGS: None. IMPRESSION: 1. Subacute right middle cerebral artery infarction involving right frontal and parietal lobes. There is mild associated mass effect with effacement of adjacent cortical sulci. 2. Remote right occipital infarction. 3. Remote pontine infarction. Signer Name: Hamlet Hubbard MD Signed: 02/28/2020 6:19 PM Workstation Name: [id number]
--- NOTE | 2020-02-28 18:33 | Magnetic Resonance Report ---
MRA HEAD WITHOUT CONTRAST HISTORY: Cerebral vascular accident. Subacute left MCA infarction. COMPARISON: MRA head 08/21/2019 and CTA head 09/24/2015 TECHNIQUE: Routine MRA of the head performed. 3-D/MIP reformats postprocessed. CONTRAST: none FINDINGS: MRA HEAD: OVERVIEW: This is a technically limited study. Intracranial vertebral arteries: The left vertebral artery is dominant. Both vertebral arteries appea r to be due to the basilar artery origin. Basilar artery: Proximal basilar artery has an unremarkable appearance. The mid and distal basilar artery is of markedly decreased caliber. This may be in part due to the presence of origin of both posterior cerebral arteries, however, the possibility of mid and distal basilar stenosis due to intercranial atherosclerotic disease or dissection cannot be e xcluded. This is a chronic finding. Similar findings were present on MRA head dated 08/21/[address] A head dated 09/24/2015. Posterior cerebral arteries: origin of both posterior cerebral arteries is demonstrated. P2, P3 and T4 segments of the posterior cerebral arteries have a normal and bilaterally symmetrical appeara nce. Intracranial internal carotid arteries: No abnormality Anterior cerebral arteries: Symmetrical A1 segments of the anterior cerebral arteries are demonstrate d. No abnormalities are seen along the visualized portions of the A2 segments. Middle cerebral arteries: Normal and symmetrical M1 segments of the middle cerebral arteries are demo nstrated. No abnormalities are seen along the course of the insular branches. The opercular branches are not well visualized on this limited study. IMPRESSION: 1. Marked decrease in caliber of the mid and distal basilar artery may be due in part due to the pres ence of origin of both posterior cerebral arteries, however, intercranial atherosclerotic disea se or even dissection cannot be excluded. This is a chronic finding unchanged since CTA head dated . Signer Name: Hamlet Hubbard MD Signed: 02/28/2020 6:29 PM Workstation Name: [id number]
--- NOTE | 2020-02-28 18:36 | Magnetic Resonance Report ---
MRA NECK WITHOUT CONTRAST HISTORY: Cerebrovascular accident COMPARISON: CTA neck 09/24/2015 TECHNIQUE: Routine MRA neck performed. 3-D/MIP reformats postprocessed. Percentage stenosis is dete rmined by direct quantitative measurements of distal internal carotid artery diameter compared with n ormal reference segments or by criteria similar to NASCET where applicable. CONTRAST: none FINDINGS: MRA NECK: Aortic arch: The thoracic aorta is not included on this study. Note is made of a common origin of the brachiocephalic and left common carotid artery. This is a normal anatomical variation. No abnormalit ies are seen at the origin of the left subclavian artery. Vertebral arteries: Vertebral arteries are diminutive in size unchanged from previous study. Right carotid artery:Right common carotid artery, the carotid bifurcation and cervical portions of th e right internal carotid arteries all have an unremarkable appearance. Left carotid artery:The left common carotid artery, left carotid bifurcation and cervical portions of the left internal carotid artery all have an unremarkable appearance. SUMMARY:The degree of stenosis, if any, is determined utilizing NASCET like criteria. In this case th ere is no indication of stenosis at the carotid bifurcations or elsewhere. Additional findings: None. IMPRESSION: 1. No indication of hemodynamically significant stenosis at the carotid bifurcations or elsewhere. Signer Name: Hamlet Hubbard MD Signed: 02/28/2020 6:31 PM Workstation Name: [id number]
[2020-02-29] MEDS: INSULIN LISPRO 100 UNIT/ML SUB-Q SCH ×3 (08:19→18:06)
[2020-02-29] MEDS: CLOPIDOGREL 75 MG TAB PO SCH (09:20)
[2020-02-29] MEDS: ASPIRIN 325 MG TAB PO SCH (09:20)
[2020-02-29 11:52] VITALS: BP 136/82
--- NOTE | 2020-02-29 13:19 | Discharge Summary ---
Providers - Providers Date of Admission: 02/26/20 13:45 Attending physician: STEVENSON ABREU MD 02/26/20 Consult to Physician [CONS] Routine Comment: Consulting Provider: LOURDES VEGA Physician Instructions: Reason For Exam: cva 02/26/20 12:58 Consult to Case Management [CONS] Routine Services Needed at Discharge: Other Notified:: in am Additional Physician Instructions: Discharge planning Occupational Therapy Evaluate and Treat [CONS] Routine Comment: Reason For Exam: Neuro deficits Physical Therapy Evaluation and Treat [CONS] Routine Comment: Reason For Exam: Neuro deficits 02/26/20 12:59 Speech Therapy Evaluation and Treat [CONS] Routine Reason For Exam: swallow eval Primary care physician: JEROME WELLINGTON Hospitalization Reason for admission: CVA Condition: Serious Hospital course: 54 YO Male with HTN, CVA, Obesity, PE not currently on therapeutic anticoagulation presents to ED for evaluation. Patient states that he experienced a sudden onset of weakness and numbness on his left side approximately 2 to 3 days ago. Patient states that symptoms have persisted since their onset at that time. Patient was seen and evaluated by his primary care physician and instructed to seek further care. Patient transported to [facility] via private vehicle. Patient seen and evaluated in the emergency department. A code stroke was called. Lab and imaging studies were subsequently reviewed. Patient underwent CT CT scan of the head which revealed a right middle cerebral artery ischemic infarct. Tele-neurology consulted. Patient admitted to medical floor and initiated on CVA protocol. Neurology team consulted in ED. Patient initiated on dual antiplatelet therapy. Patient denies fever, chills, chest pain, palpitation, productive cough, skin rash, recent ill contacts, syncope, seizure, or known exposure to COVID-19. Prior admission on 08/21/2019 reviewed. All medication listed at time of admission has been reconciled. Patient was seen by neurology CVA work-up started. And per neurology his is 54 ys old male with hx of HTN,DM,HLP with recurrent CVA presented with 2 weeks hx of left side weakness and tendency to fall CT in PCP office remarkable for subacute Right MCA infarct and remote left parietal infarct Left side numbness and weakness and tendency to fall associted with right side blurred vision According to pt. since 2014 he had several CVA and ? hx of PE he denied irregular heart beat he is on ASA daily According to him he noticed the weakness left side 2 weeks ago he visited his PCP , CT brain obtained is remarkable for subacute R MCA infarct he denied family hx of similar nature , drug abuse , smoking or drinking hx . CT head: IMPRESSION: Large subacute-appearing infarct in the right MCA distribution as detailed above. 02/27: Awaiting cardiology reevaluation for possible LEA. Continue current management medical management. PT OT due to recurrent dizziness. We will also await MRI review. 02/28: Following review and discussed with cardiology we revealed that patient had a LEA in 2013 which showed a PFO. The patient tells me that he was unaware of this and had not followed up with anybody. I recommended an outpatient evaluation by cardiology for PFO repair considering that the patient has had multiple strokes. I have also recommended an event monitor and discussed with cardiology who is willing to see the patient outpatient and arrange for this I also discussed medication management with this patient and will be sending home health nurse to make sure that there is med compliance and follow-up patient verbalized understanding understands the risk associated with noncompliance and stable for discharge at this time. (1) Acute CVA (cerebrovascular accident) (2) HTN (hypertension) (3) diabetes mellitus (4) PFO (5) left-sided hemiparesis. Disposition: DC-30 STILL A PATIENT Time spent for discharge: 35 minutes Core Measure Documentation - Palliative Care Palliative Care/ Comfort Measures: Not Applicable - Core Measures Any of the following diagnoses?: stroke - Stroke Discharge Requirements Statin for LDL = or >70 mg/dl on DC: Yes Anticoag for atrial fib/atrial flutter: Not Applicable Antithrombotic for ischemic stroke: Yes Exam - Physical Exam Narrative exam: VITAL SIGNS: Reviewed. GENERAL: The patient appears normally developed, Vital signs as documented. HEAD: No signs of head trauma. EYES: Pupils are equal. Extraocular motions intact. EARS: Hearing grossly intact. MOUTH: Oropharynx is normal. NECK: No adenopathy, no JVD. CHEST: Chest with clear breath sounds bilaterally. No wheezes, rales, or rhonchi. CARDIAC: Regular rate and rhythm. S1 and S2, without murmurs, gallops, or rubs. VASCULAR: No Edema. Peripheral pulses normal and equal in all extremities. ABDOMEN: Soft, non tender and non distended. No rebound or guarding, and no masses palpated. Bowel Sounds normal. MUSCULOSKELETAL: Good range of motion of all major joints. Extremities without clubbing, cyanosis or edema. NEUROLOGIC EXAM: Alert and oriented x 3 3/5 motor strength left upper and 4/5 lower left extremities. Speech normal. Follows commands. PSYCHIATRIC: Mood normal. SKIN: detial exam as documented in skin assessment - Constitutional Vitals: Temp Pulse Resp BP Pulse Ox 98.3 F 74 20 136/82 98 02/29/20 11:30 02/29/20 13:07 02/29/20 11:30 02/29/20 11:30 02/29/20 11:30 Plan Activity: advance as tolerated, fall precautions Diet: low fat, diabetic Special Instructions: record daily weights, record daily BP diary, smoking cessation Follow up with: JEROME WELLINGTON MD [Primary Care Provider] - 7 Days RANJEET QURESHI MD [Staff Physician] - 7 Days ([place] office, 03/10/2020 @ 1:00PM) Prescriptions: AtorvaSTATin [Lipitor] 40 mg PO QHS #30 tablet Aspirin [Aspirin BABY CHEW TAB] 81 mg PO QDAY 30 Days #30 tab.chew Clopidogrel [Plavix] 75 mg PO QDAY #30 tablet
--- NOTE | 2020-02-29 17:33 | Vascular Lab Report ---
DUPLEX DOPPLER UPPER EXTREMITY VENOUS, BILATERAL INDICATION / CLINICAL INFORMATION: rule out DVT. TECHNIQUE: Duplex doppler imaging was performed through the veins of the right and left upper extremity using ve nous compression and other maneuvers. COMPARISON: None available. FINDINGS: RIGHT INTERNAL JUGULAR VEIN: Negative. RIGHT SUBCLAVIAN VEIN: Negative. RIGHT AXILLARY VEIN: Negative. RIGHT BRACHIAL VEIN: Negative. RIGHT FOREARM VEINS: Negative. RIGHT BASILIC VEIN (SUPERFICIAL): Negative. LEFT INTERNAL JUGULAR VEIN: Negative. LEFT SUBCLAVIAN VEIN: Negative. LEFT AXILLARY VEIN: Negative. LEFT BRACHIAL VEIN: Negative. LEFT FOREARM VEINS: Negative. LEFT BASILIC VEIN (SUPERFICIAL): Negative. ADDITIONAL FINDINGS: None. IMPRESSION: 1. No sonographic evidence for DVT in the right or left upper extremity. Signer Name: Jonathon Gilman MD Signed: 02/29/2020 5:28 PM Workstation Name: [id number]
--- NOTE | 2020-02-29 17:35 | Vascular Lab Report ---
DUPLEX DOPPLER LOWER EXTREMITY VEINS, BILATERAL INDICATION / CLINICAL INFORMATION: blood clot. History of pulmonary embolism. TECHNIQUE: Duplex doppler imaging was performed through the veins of both lower extremities using venous jl aan and other maneuvers. COMPARISON: None available. FINDINGS: RIGHT COMMON FEMORAL VEIN: Negative. RIGHT FEMORAL VEIN: Negative. RIGHT POPLITEAL VEIN: Negative. RIGHT CALF VEINS: Negative. LEFT COMMON FEMORAL VEIN: Negative. LEFT FEMORAL VEIN: Negative. LEFT POPLITEAL VEIN: Negative. LEFT CALF VEINS: Negative. ADDITIONAL FINDINGS: None. IMPRESSION: 1. No sonographic evidence for DVT in either lower extremity. Signer Name: Jonathon Gilman MD Signed: 02/29/2020 5:31 PM Workstation Name: [id number]
--- NOTE | 2020-02-29 18:18 | Consultation ---
History of Present Illness Consult date: 02/29/20 Reason for Consult: Stroke Chief complaint: Left hand weakness History of present illness: Patient is a 54 y/o man w/ a h/o CVA w/ no residual deficits, HTN, HLD. Approximately 2 weeks ago, he had onset of LUE weakness, which involved predominantly the hand. Symptoms had persisted, and patient came to [facility] for further evaluation. He states that his last stroke was in 2014, however he did not have any residual deficits. Patient also states that he has been compliant with ASA 81mg daily. There was a mention of possible history of PE, as this was noted in the chart. This was discussed with patient, however he states that he did not have any recollection of this. He was previously on warfarin, however he does not know why this was done in the past, who had prescribed it for him, or why he stopped taking it. Past History Past Medical History: hypertension, pulmonary embolism, stroke Past Surgical History: Other (PEG tube placement) Social history: single. denies: smoking, alcohol abuse, prescription drug abuse Family history: diabetes, hypertension Medications and Allergies Allergies Allergy/AdvReac Type Severity Reaction Status Date / Time No Known Allergies Allergy Verified 04/10/19 11:23 Home Medications Medication Instructions Recorded Confirmed Last Taken Type lisinopriL [Zestril TAB] 20 mg PO QDAY #30 tablet 10/07/19 02/28/20 Unknown Rx amLODIPine 10 mg PO DAILY 02/28/20 02/28/20 Unknown History Aspirin [Aspirin BABY CHEW TAB] 81 mg PO QDAY 30 Days #30 tab.chew 02/29/20 Unknown Rx AtorvaSTATin [Lipitor] 40 mg PO QHS #30 tablet 02/29/20 Unknown Rx Clopidogrel [Plavix] 75 mg PO QDAY #30 tablet 02/29/20 Unknown Rx Active Meds: Active Medications Acetaminophen (Tylenol) 650 mg PO Q4H PRN PRN Reason: Pain, Mild (1-3) Aspirin (Aspirin) 325 mg PO QDAY [facility] Last Admin: 02/29/20 09:20 Dose: 325 mg Documented by: Atorvastatin Calcium (Lipitor) 40 mg PO QHS [facility] Last Admin: 02/28/20 21:23 Dose: 40 mg Documented by: Bisacodyl (Dulcolax) 10 mg [place] QDAY PRN PRN Reason: Constipation Clopidogrel Bisulfate (Plavix) 75 mg PO QDAY [facility] Last Admin: 02/29/20 09:20 Dose: 75 mg Documented by: Dextrose (D50w (25gm) Syringe) 50 ml IV Q30MIN PRN; Protocol PRN Reason: Hypoglycemia Insulin Human Lispro (Humalog) 0 unit SUB-Q ACHS [facility]; Protocol Last Admin: 02/29/20 18:06 Dose: 3 unit Documented by: Magnesium Hydroxide (Milk Of Magnesia) 30 ml PO Q4H PRN PRN Reason: Constipation Metoclopramide HCl (Reglan) 10 mg PO Q6H PRN PRN Reason: Nausea And Vomiting Ondansetron HCl (Zofran) 4 mg IV Q8H PRN PRN Reason: Nausea And Vomiting Promethazine HCl (Phenergan) 25 mg [place] Q6H PRN PRN Reason: Nausea And Vomiting Sodium Chloride (Sodium Chloride Flush Syringe 10 Ml) 10 ml IV PRN PRN PRN Reason: LINE FLUSH Review of Systems All systems: negative Neurological: weakness Physical Examination - Vital Signs Vital Signs: Vital Signs Temp Pulse Resp BP Pulse Ox 98.4 F 70 15 125/87 99 02/26/20 11:36 02/26/20 11:36 02/26/20 11:36 02/26/20 11:36 02/26/20 11:36 - Physical Exam Narrative exam: Patient is alert, awake, oriented x4, follows complex commands. No dysarthria or aphasia noted. EOMI, VFF, tongue midline, bilaterally intact to LT, no facial weakness noted. 5/5 strength in RUE/RLE/LLE, LUE noted to have decreased strength distally with 3/5 microstrategy architect. Bilaterally intact light touch. Bilaterally intact to FTN and HTS. - Constitutional General appearance: comfortable - EENT EENT: Present: ATNC - Level of Consciousness 1a. Level of Consciousness: alert/keenly responsive - LOC Questions 1b. LOC Questions: answers both correctly - LOC Command 1c. LOC Commands: performs tasks correctly - Best Gaze 2. Best Gaze: normal - Visual 3. Visual: no visual loss - Facial Palsy 4. Facial Palsy: normal symmetrical movement - Motor Arm 5a. Motor Arm Left: no drift 5b. Motor Arm Right: no drift - Motor Leg 6a. Motor Leg Left: no drift 6b. Motor Leg Right: no drift - Limb Ataxia 7. Limb Ataxia: absent - Sensory 8. Sensory: normal - Best Language 9. Best Language: no aphasia - Dysarthria 10. Dysarthria: normal - Extinction and Inattention 11. Extinction/Inattention: no abnormality - Scoring Total Score: 0 Stroke Severity: No Stroke Symptoms Results - Laboratory Findings CBC and BMP: 02/26/20 12:24 02/26/20 12:24 Abnormal Lab Findings: Abnormal Labs 02/26/20 02/26/20 02/27/20 12:24 12:24 06:33 RBC 5.27 H [place] % (Auto) 9.2 H Sodium 133 L Glucose 274 H POC Glucose Total Protein 8.3 H HDL Cholesterol 37 L 02/28/20 02/28/20 02/29/20 11:52 21:25 11:59 RBC [place] % (Auto) Sodium Glucose POC Glucose 277 H 213 H 294 H Total Protein HDL Cholesterol 02/29/20 18:01 RBC [place] % (Auto) Sodium Glucose POC Glucose 212 H Total Protein HDL Cholesterol Assessment and Plan Patient is a 54 y/o man w/ a h/o CVA w/ no residual deficits, HTN, HLD, who p/w left UE weakness. According to the patient's clinical findings, he has had an ischemic stroke. The etiology of the stroke is likely cryptogenic. After discussion with patient and chart review, it was not possible to verify if patient had actually had a PE in the past. Plan: 1. Stroke: - MRI brain: Right MCA parietal infarct noted. 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 - CT head: Rt. parietal infarct noted - Echo: EF 60-65%, LA normal size, bubble study positive. -Recommend dual antiplatelet therapy with aspirin 81 mg daily and Plavix 75 mg daily for 30 days, after which Plavix can be stopped. Discussed risks and benefits of dual antiplatelet therapy with patient, and patient agreed to take this. - Cont. statin. LDL goal <70 - Given cryptognic etiology of stroke, recommend long-term cardiac monitoring with 30-day MCOT or ILR. - As patient was found to have a PFO on TTE, venous doppler was done, however no DVT was found. - Recommend LEA to be done. Per primary team, cardiology stated this would be done as outpatient. - If patient found to have a cardiac thrombus, would recommend anti-coagulation. - Telemetry monitoring while in house - PT/OT/ST - DVT Ppx: Recommend lovenox 2. Hypertension: - Recommend BP goal of normotension, as symptom onset was >48 hours ago. - Recommend for patient to follow up with neurology as outpatient in 2-3 weeks. - Will sign off. Please call with any questions. Thank you for allowing me to take part in the care of this patient. Shiva Vega MD Neurology This clinical encounter was provided via live telemedicine platform. Consultative service was provided for neurology to support local providers. The Acute Teleneurology team should be contacted with any neurologic worsening or clinical changes, new test results, or new patient history that is reported to or discovered by the local team following completion of the teleneurology consultation, specifically that which has the potential to impact the consultative recommendations. Patient/Family was informed the Neurology Consult would happen via TeleHealth consult by way of interactive audio and video telecommunications and consented to receiving care in this manner. Due to the potential for life-threatening deterioration due to underlying neurologic illness, and limited resources available for patient care, telemedicine was used as means of patient care. Telemedicine consultation is limited in the extent of physical exam that can be virtually provided. Time spent evaluating patient includes time for face to face visit via telemedicine, review of medical records, imaging studies and discussion of findings with providers, the patient and/or family.
[2020-03-02 12:33] LABS: ANA Screen, IFA Negative (Negative)
== END 2020-02-29 19:00 | disposition home health service (06) | DRG 65 ==
LOC: ED 11:22 → EDSTATUS 11:24 → 4A 13:45
PROVIDERS: ADMIT Internal Medicine; ATTEND Internal Medicine
DX: I63.9 Cerebral infarction, unspecified (principal); G81.94 Hemiplegia, unspecified affecting left nondominant side; Q21.1 Atrial septal defect; I10 Essential (primary) hypertension; E66.9 Obesity, unspecified; E11.9 Type 2 diabetes mellitus without complications; Z86.711 Personal history of pulmonary embolism; Z93.1 Gastrostomy status; Z82.49 Family history of ischemic heart disease and other diseases of the circulatory system; Z83.3 Family history of diabetes mellitus; Z79.82 Long term (current) use of aspirin; Z79.899 Other long term (current) drug therapy; Z68.32 Body mass index [BMI] 32.0-32.9, adult
CPT/HCPCS: 36415; 70450; 70544; 70547; 70551; 80053; 80061; 80307; 80320; 82607; 82747; 82962; 84484; 85025; 85610; 85652; 85730; 86038; 93005; 93306; 93880; 93970; G0378; A9270-GY; G0480

== ENCOUNTER 2020-05-18 06:32 | Outpatient (CLI) | payer MEDICARE ==
[2020-05-18] MEDS ORDERED: SODIUM CHLORIDE 0.9% 500 ML 500 ML IV SCH (07:00)
[2020-05-18] MEDS ORDERED: SODIUM CHLORIDE 0.9% 500 ML 500 ML ONE (07:06)
[2020-05-18 07:25] LABS: Hematocrit 46.6 % (35.5-45.6); Hemoglobin 15.4 gm/dl (11.8-15.2); Mean Corpuscular HGB Conc 33 % (32-34); Mean Corpuscular Volume 85 fl (84-94); Platelet Count 157 K/mm3 (140-440); Red Blood Count 5.46 M/mm3 (3.65-5.03); Red Cell Distribution Width 14.2 % (13.2-15.2)
[2020-05-18 07:36] LABS: INR 1.05 (0.87-1.13); Partial Thromboplastin Time 29.7 Sec. (24.2-36.6)
[2020-05-18 07:59] LABS: BUN/Creatinine Ratio 12; Blood Urea Nitrogen 17 mg/dL (9-20); Calcium 9.2 mg/dL (8.4-10.2); Hemolysis Index 0
[2020-05-18] MEDS ORDERED: BENZOCAINE 20% TOP SPRAY 0.5 ML UNIT DOSE MM NR (08:00)
--- NOTE | 2020-05-18 08:03 | Anesthesia Consultation ---
Anesthesia Consult and Med Hx Date of service: 05/18/20 - Airway Anesthetic Teeth Evaluation: Poor ROM Head & Neck: Adequate Mental/Hyoid Distance: Adequate Mallampati Class: Class II Intubation Access Assessment: Possibly Difficult - Pulmonary Exam CTA: Yes - Pre-Operative Health Status ASA Pre-Surgery Classification: ASA3 Proposed Anesthetic Plan: IV Sedation - Pulmonary Hx Smoking: No Hx Asthma: No Hx Respiratory Symptoms: Yes (Hx. Pulmonary Embolism) COPD: No Hx Pneumonia: No Hx Sleep Apnea: No - Cardiovascular System Hx Hypertension: Yes Hx Heart Attack/AMI: No Hx Angina: No Hx Cardia Arrhythmia: Yes (PVC) Hx Pacemaker: No Hx Internal Defibrillator: No Hx Heart Murmur: Yes (PFO, EF 55-60%) - Central Nervous System Hx Seizures: Yes CVA: Yes (x4, recent 02/2020) Hx Psychiatric Problems: No - Gastrointestinal Hx Gastroesophageal Reflux Disease: Yes - Endocrine Hx Renal Disease: No Hx End Stage Renal Disease: No Hx Liver Disease: No Hx Insulin Dependent Diabetes: No Hx Non-Insulin Dependent Diabetes: No Hx Thyroid Disease: No - Hematic Hx Anemia: No Hx Sickle Cell Disease: No - Other Systems Hx Alcohol Use: Yes Hx Cancer: No Hx Obesity: Yes (BMI 41) - Additional Comments Anesthesia Medical History Comments: Patien denied previous anesthesia complic ation
--- NOTE | 2020-05-18 08:06 | Anesthesia Day of Surgery ---
Anesthesia Day of Surgery - Day of Surgery Patient Examined: Yes Patient H&P Reviewed: Yes Patient is NPO: Yes Beta Blockers: No Cardiac Clearance: No Pulmonary Clearance: No Russel's Test: N/A
[2020-05-18] MEDS ORDERED: LIDOCAINE MPF (2%) 20 MG/1 ML VIAL 5 ML ONE (08:28)
[2020-05-18] MEDS ORDERED: propofoL 200 MG/20 ML VIAL IV ONE ×3 (08:28)
--- NOTE | 2020-05-18 09:38 | Post Anesthesia Evaluation ---
- Post Anesthesia Evaluation Patient Participated: Yes Airway Patent: Yes Stable Respiratory Function: Yes Nausea/Vomiting: No Temp > 96.8F: Yes Pain Manageable: Yes Adequeate Hydration: Yes Anesthesia Complications: No
[2020-05-18 10:47] VITALS: BP 114/74
== END 2020-05-18 11:05 | disposition home or self-care (01) ==
LOC: ECHO 06:32 → CATHLABREC 06:32
PROVIDERS: ATTEND Internal Medicine
DX: I35.1 Nonrheumatic aortic (valve) insufficiency (principal); I63.9 Cerebral infarction, unspecified
CPT/HCPCS: 36415; 80048; 85027; 85610; 85730; 93312; 93320; 93325; J2704; J7040

== ENCOUNTER 2022-05-23 08:40 | Outpatient (CLI) | payer MEDICARE, MEDICAID ==
[2022-05-23 11:56] LABS: BUN/Creatinine Ratio 12; Blood Urea Nitrogen 15 mg/dL (9-20); Calcium 9.9 mg/dL (8.4-10.2); Chol/HDL Ratio 2.43 %; HDL Cholesterol 58 mg/dL (40-59); Hemolysis Index 9; LDL Cholesterol,Direct 66 mg/dL (50-130)
== END 2022-05-23 08:41 | disposition home or self-care (01) ==
LOC: LABHHL 08:40
PROVIDERS: ATTEND Internal Medicine
DX: E11.22 Type 2 diabetes mellitus with diabetic chronic kidney disease (principal); N18.9 Chronic kidney disease, unspecified; E78.5 Hyperlipidemia, unspecified
CPT/HCPCS: 36415; 80048; 80061; 83036